=== PATIENT | female | born 1930 | race Caucasian/White ===

== ENCOUNTER → 2016-10-02 | Outpatient (CLI) | payer OTHER, BC ==
[~2016-10-02] MED LIST: ACET-1256 PO; ALBU18002 INH; ASPEC325 PO; ASPI-232 PO; ATOR-24 PO; ATV5 PO; CHLL MT; CITA10TA8 PO; CITA20TA9 PO; CLBCRM30 EXT; CLOP1TAB15 PO; DOCU-94 PO; FLNIN NAE; FLUT0.15 NAE; GLC/500 PO; LISI5TAB3 PO; LOSA100T65 PO; LOSA1TAB38 PO; LVQ750 PO; MAGN400C2 PO; METO50TA7 PO; MONT1TAB3 PO; NTRAR SL; OMEG10007 PO; PANT40TA PO; PLV75 PO; [UNRECOGNIZED DRUG - CODE] MT
[2016-10-02 08:57] LABS: BLOOD UREA NITROGEN 29 mg/dl (7-18); BUN/CREATININE RATIO 32.8 (10-20); CALCIUM 9.3 mg/dl (8.5-10.1); CARBON DIOXIDE 29 mmol/L (21-32); CHLORIDE 103 mmol/L (98-107); CREATININE 0.89 mg/dl (0.60-1.20); GLUCOSE 99 mg/dl (70-99); POTASSIUM 4.7 mmol/L (3.5-5.1); SODIUM 140 mmol/L (136-145)
[2016-10-02 09:53] LABS: ESTIMATED AVERAGE GLUCOSE 128 mg/dl; HA1C FLAG Normal (Normal)
== END | disposition home or self-care (01) ==
LOC: C.LABFOXMH 08:28
PROVIDERS: ATTEND Internal Medicine
DX: E11.9 Type 2 diabetes mellitus without complications (principal)

== ENCOUNTER → 2016-11-19 | Outpatient (CLI) | payer OTHER, BC | END | disposition home or self-care (01) | LOC: C.LABFOXMH 16:52 | PROVIDERS: ATTEND Internal Medicine | DX: R19.7 Diarrhea, unspecified (principal) ==

== ENCOUNTER → 2017-01-20 | Outpatient (CLI) | payer OTHER, BC ==
[2017-01-20 10:31] LABS: ALT/SGPT 64 U/L (12-78); AST/SGOT 39 U/L (15-37); BLOOD UREA NITROGEN 26 mg/dl (7-18); BUN/CREATININE RATIO 26.4 (10-20); CALCIUM 9.5 mg/dl (8.5-10.1); CARBON DIOXIDE 27 mmol/L (21-32); CHLORIDE 101 mmol/L (98-107); CREATININE 0.98 mg/dl (0.60-1.20); GLUCOSE 104 mg/dl (70-99); POTASSIUM 4.4 mmol/L (3.5-5.1); SODIUM 137 mmol/L (136-145)
[2017-01-20 10:35] LABS: ALB/GLOB RATIO 1.1 (0.9-2); ALKALINE PHOSPHATASE 107 U/L (45-117); CHOLESTEROL 98 mg/dl (0-200); CHOLESTEROL/HDL RATIO 2.4; HDL CHOLESTEROL 41 mg/dl; LDL CHOLESTEROL CALCULATED 31 mg/dl; TRIGLYCERIDES 132 mg/dl (0-150); VERY LOW DENSITY LIPOPROT CALC 26 mg/dl
[2017-01-20 10:41] LABS: ESTIMATED AVERAGE GLUCOSE 140 mg/dl; HA1C FLAG Normal (Normal)
== END | disposition home or self-care (01) ==
LOC: C.LABFOXMH 09:37
PROVIDERS: ATTEND Internal Medicine
DX: E11.9 Type 2 diabetes mellitus without complications (principal); E78.00 Pure hypercholesterolemia, unspecified

== ENCOUNTER 2017-02-14 08:49 | Inpatient (IN) | payer OTHER, BC ==
[~2017-02-14] VITALS: Ht 152.4 cm; Wt 68.6 kg
[~2017-02-14 08:49] MED LIST changes: -ACET-1256 PO; -ALBU18002 INH; -ASPI-232 PO; -ATV5 PO; -CHLL MT; -CITA20TA9 PO; -CLBCRM30 EXT; -DOCU-94 PO; -FLUT0.15 NAE; -GLC/500 PO; -LOSA1TAB38 PO; -LVQ750 PO; -MAGN400C2 PO; -MONT1TAB3 PO; -OMEG10007 PO; -PLV75 PO; -[UNRECOGNIZED DRUG - CODE] MT
--- NOTE | 2017-02-14 09:50 | EMERGENCY ROOM VISIT NOTE ---
History Report prepared by Cecilio: Art Xavier Under the Supervision of: Dr. Luca Olsen M.D. First contact with patient: 09:35 Chief Complaint: RESPIRATORY PROBLEMS Stated Complaint: RESPIRATORY PROBLEMS-LUNGS FILLING-SENT BY [facility] Nursing Triage Summary: pt reports from [facility] lasts night aspirated medication ,today difficulty breathing , cough "feels full" fever started last night Took Tylenol, 500mg, today at 0600, and fever is down from 102.1 F oral at 0500. Possible aspiration occurred 1800 last night, started coughing, dyspnea, sounded hoarse. Coughed up a piece of red pill. Had another episode a month ago where a nurse had to do abdominal thrusts. Currently mild dyspnea and sore throat. History of Present Illness The patient is a 87 year old female who presents to the Emergency Room with complaints of a sore throat that began last night. She rates her current pain a 10/10 in severity. At this time, she tried to take her evening medications. She then began choking on her pills and began to cough. This has happened to her before, but this time is not as bad. She then coughed up her pills. After this, she began to experience a sore throat, which then progressed into a fever with nausea, shortness of breath and a headache. She denies any abdominal pain, abnormal urinary symptoms, vomiting, or diarrhea. Her sore throat worsens with swallowing. She is currently taking Plavix and Singulair. She has a history of cardiac stents and heart disease. She denies any history of strokes. Source of History: patient, family Onset: last night Position: throat Symptom Intensity: 10/10 Quality: ache Timing: constant Modifying Factors (Worsening): other (Swallowing) Associated Symptoms: + SOB, + cough, + fevers, + headache, + nausea, No abdominal pain, No diarrhea, No urinary symptoms, No vomiting Review of Systems See HPI for pertinent positives & negatives. A total of 10 systems reviewed and were otherwise negative. Past Medical & Surgical Medical Problems: (1) Heart disease Surgical Problems: (1) Hx of heart artery stent Old medical records were reviewed. Nurse's notes were reviewed and I agree with. Family History FHx: cancer Social History Smoking Status: Never Smoker Smokeless Tobacco Use: No Alcohol Use: none Drug Use: none Marital Status: Occupation Status: retired Current/Historical Medications Scheduled Albuterol Sulfate (Proair Respiclick), 2 PUFFS INH QID Aspirin (Aspir-81), 1 TAB PO DAILY Atorvastatin (Lipitor), 40 MG PO DAILY Citalopram Hydrobromide (Celexa), 20 MG PO DAILY Clobetasol Propionate (Clobetasol Propionate Cream 0.05%), 1 APPLN EXT DAILY Docusate Sodium (Colace), 1 CAP PO BID Fish Oil ([place]-3), 1 CAP PO DAILY Fluticasone Propionate (Nasal) (Flonase Allergy Relief), 1 SPRAY BUBBA BID Losartan Potassium (Cozaar), 100 MG PO DAILY Magnesium Oxide (Magnesium Oxide), 1 CAP PO DAILY Metformin Hcl (Glucophage), 500 MG PO BID Metoprolol Succ (Toprol Xl) (Toprol-Xl), 50 MG PO BID Montelukast Sodium (Singulair), 10 MG PO DAILY Scheduled PRN Acetaminophen (Tylenol), 500 MG PO UD PRN for Pain or Fever Allergies Coded Allergies: Propoxyphene (Verified Allergy, Unknown, 06/28/13) Physical Exam Vital Signs Date Time Temp Pulse Resp B/P Pulse Ox O2 Delivery O2 Flow Rate FiO2 02/14/17 11:19 97 19 02/14/17 11:01 104/65 02/14/17 10:49 91 26 96 02/14/17 10:32 118/62 02/14/17 10:19 88 21 96 02/14/17 10:01 129/100 02/14/17 09:55 86 Room Air 02/14/17 09:55 93 Nasal Cannula 3.0 02/14/17 09:31 126/69 02/14/17 09:07 91 Room Air 02/14/17 08:56 37.6 94 20 124/69 91 Room Air Physical Exam General: Well developed older female well nourished, in no acute distress, coughing intermittently but appears to be in no respiratory distress on room air. Normal speech HEENT: Normal cephalic atraumatic. Pupils are equal round and reactive to light. Sclera anicteric. extraocular ocular movements are intact. Oropharynx is pink with moist mucous membranes. No swelling of the mouth lips or tongue. No Darius's angina. Neck: Supple with a midline trachea. No meningeal signs or stiffness, no JVD or bruits. No Stridor. Chest: Rhonchorus breath sounds bilaterally. Heart: regular rate and rhythm. Abdomen: Soft nontender, nondistended without rebound guarding or rigidity. Extremities: No cyanosis clubbing or edema. No calf tenderness or assymetry Spine/Back. Non tender to palpation. No CVA tenderness Skin: Good turgor without rashes. Neurologic exam: Cranial nerves two through 12 are intact. Motor and sensation are intact and symmetrical throughout. Medical Decision & Procedures ER Provider Diagnostic Interpretation: X-ray results as stated below per interpretation by me and the radiologist: CHEST ONE VIEW PORTABLE CLINICAL HISTORY: Shortness of breath. COMPARISON STUDY: Chest radiograph April 13, 2016. FINDINGS: No pneumothorax or pleural effusion is present. There is no consolidation to suggest pneumonia. Cardiomediastinal silhouette is normal. There is no evidence of pulmonary edema. There may be calcific tendinitis of the left rotator cuff. Minimal left basilar opacity suggests atelectasis. IMPRESSION: No acute cardiopulmonary findings. Electronically signed by: Twin Carlton M.D. 02/14/2017 10:01 AM Dictated Date/Time: 02/14/2017 10:00 AM Laboratory Results 02/14/17 09:50 Red Blood Count 4.00, Mean Corpuscular Volume 88.0, Mean Corpuscular Hemoglobin 30.0, Mean Corpuscular Hemoglobin Concent 34.1, Mean Platelet Volume 10.2, Neutrophils (%) (Auto) 83.7, Lymphocytes (%) (Auto) 9.8, Monocytes (%) (Auto) 5.6, Eosinophils (%) (Auto) 0.4, Basophils (%) (Auto) 0.2, Neutrophils # (Auto) 11.33, Lymphocytes # (Auto) 1.32, Monocytes # (Auto) 0.76, Eosinophils # (Auto) 0.05, Basophils # (Auto) 0.03 02/14/17 09:50 Test 02/14/17 09:50 02/14/17 10:26 White Blood Count 13.53 K/uL (4.8-10.8) Red Blood Count 4.00 M/uL (4.2-5.4) Hemoglobin 12.0 g/dL (12.0-16.0) Hematocrit 35.2 % (37-47) Mean Corpuscular Volume 88.0 fL (80-100) Mean Corpuscular Hemoglobin 30.0 pg (25-34) Mean Corpuscular Hemoglobin Concent 34.1 g/dl (32-36) Platelet Count 191 K/uL (130-400) Mean Platelet Volume 10.2 fL (7.4-10.4) Neutrophils (%) (Auto) 83.7 % Lymphocytes (%) (Auto) 9.8 % Monocytes (%) (Auto) 5.6 % Eosinophils (%) (Auto) 0.4 % Basophils (%) (Auto) 0.2 % Neutrophils # (Auto) 11.33 K/uL (1.4-6.5) Lymphocytes # (Auto) 1.32 K/uL (1.2-3.4) Monocytes # (Auto) 0.76 K/uL (0.11-0.59) Eosinophils # (Auto) 0.05 K/uL (0-0.5) Basophils # (Auto) 0.03 K/uL (0-0.2) RDW Standard Deviation 41.7 fL (36.4-46.3) RDW Coefficient of Variation 12.8 % (11.5-14.5) Immature Granulocyte % (Auto) 0.3 % Immature Granulocyte # (Auto) 0.04 K/uL (0.00-0.02) Anion Gap 11.0 mmol/L (3-11) Est Creatinine Clear Calc Drug Dose 37.0 ml/min Estimated GFR () 61.7 Estimated GFR (Non- 53.3 BUN/Creatinine Ratio 18.4 (10-20) Calcium Level 8.9 mg/dl (8.5-10.1) Total Bilirubin 0.4 mg/dl (0.2-1) Direct Bilirubin 0.1 mg/dl (0-0.2) Aspartate Amino Transf (AST/SGOT) 36 U/L (15-37) Alanine Aminotransferase (ALT/SGPT) 61 U/L (12-78) Alkaline Phosphatase 92 U/L (45-117) Total Protein 7.2 gm/dl (6.4-8.2) Albumin 3.6 gm/dl (3.4-5.0) Lipase 141 U/L (73-393) Bedside Troponin I 0.000 ng/ml (0-0.045) [place]-Dra-S-Type Natriuretic Peptide 197 pg/ml (0-1800) Laboratory studies as stated above per my review. Medications Administered Medications (Trade) Dose Ordered Sig/Gildardo Route Start Time Stop Time Status Last Admin Dose Admin Albuterol/ Ipratropium (Duoneb) 3 ml NOW STAT INH 02/14/17 10:11 02/14/17 10:13 DC 02/14/17 10:45 3 ML ECG Indication: SOB/dyspnea Rate (beats per minute): 90 Rhythm: normal sinus Findings: no acute ischemic change, no ectopy Comparison ECG Date: 21 May 2009 Change: no significant change ED Course 0935: Past medical records reviewed. The patient was evaluated in room A12, and a complete history and physical examination were performed. 1011: Ordered DuoNeb 3 ml INH 1048: At this time, I checked with the patient's family. The patient is looking a little better. 1052: Upon reevaluation, the patient is resting. I discussed the results and treatment plan with the patient. She verbalized agreement of the treatment plan. The patient will be evaluated by Dr. Nesbitt [place] [facility] [place]. 1200: I reassessed the patient at this time. She is resting with Dr. Nesbitt at bedside. Medical Decision Differentials include aspiration, pneumonia, CHF, pharyngitis, and foreign body in the throat. Blood Pressure Screening: Patient was found to have normal blood pressure on screening and does not require follow-up. Medication Reconciliation: I attest that I have personally reviewed the patients current medication list. This patient comes in as described above. She was placed in room A 12. She's been coughing since last night when she had difficulty swallowing a pill and they're concerned about aspiration. Her lungs do sound rhonchorous and she is mildly hypoxemic initially at 91%, she did drop down to 86 at one point .she was given albuterol Atrovent neb that seemed to help she appears in no respiratory distress. Chest x-ray was clear. EKG does not suggest acute coronary syndrome or arrhythmia. She's had no acute electrolyte or metabolic abnormalities. She doesn't have a sore throat. She is not drooling. I do think she needs further GI evaluation and possible pulmonary evaluation for possible swallowing issues or aspiration. It may be also that she has a beginning of an infection. I did discuss case with Dr. Ruth Brumfield and she saw the patient and the ER and will admit the patient for these measures. Consults Time Called: 1048 Consulting Physician: Dr. Laz OBREGON Returned Call: [phone] They will be evaluating the patient for further management and care. Impression Primary Impression: Aspiration into airway Additional Impressions: Hypoxemia Sore throat Scribe Attestation The scribe's documentation has been prepared under my direction and personally reviewed by me in its entirety. I confirm that the note above accurately reflects all work, treatment, procedures, and medical decision making performed by me. Departure Information Dispostion Being Evaluated By Hospitalist Referrals Dee Delacruz (PCP) Patient Instructions My [facility] Problem Qualifiers
--- NOTE | 2017-02-14 10:02 | DIAGNOSTIC IMAGING REPORT ---
CHEST ONE VIEW PORTABLE CLINICAL HISTORY: Shortness of breath. COMPARISON STUDY: Chest radiograph April 13, 2016. FINDINGS: No pneumothorax or pleural effusion is present. There is no consolidation to suggest pneumonia. Cardiomediastinal silhouette is normal. There is no evidence of pulmonary edema. There may be calcific tendinitis of the left rotator cuff. Minimal left basilar opacity suggests atelectasis. IMPRESSION: No acute cardiopulmonary findings. Electronically signed by: Twin Carlton M.D. 02/14/2017 10:01 AM Dictated Date/Time: 02/14/2017 10:00 AM
[2017-02-14] MEDS ORDERED: ALBUT/IPRATROP 3MG/0.5MG NEB 3 ML VIAL INH STA (10:11)
[2017-02-14 10:30] LABS: HEMATOCRIT 35.2 % (37-47); MEAN CORPUSCULAR HGB CONC 34.1 g/dl (32-36); MEAN PLATELET VOLUME 10.2 fL (7.4-10.4); PLATELET COUNT 191 K/uL (130-400); WHITE BLOOD COUNT 13.53 K/uL (4.8-10.8)
[2017-02-14 10:36] LABS: BUN/CREATININE RATIO 18.4 (10-20); CALCIUM 8.9 mg/dl (8.5-10.1); CREATININE 0.97 mg/dl (0.60-1.20); POTASSIUM 4.4 mmol/L (3.5-5.1)
[2017-02-14 10:55] LABS: BASO % 0.2 %; BASO ABS # 0.03 K/uL (0-0.2); COMPLETE YES; EOS % 0.4 %; IG% 0.3 %; LYMPH % 9.8 %; LYMPH ABS # 1.32 K/uL (1.2-3.4); MONO % 5.6 %; NEUT % 83.7 %
--- NOTE | 2017-02-14 11:02 | History and Physical ---
History & Physical Date & Time of Service: February 14, 2017 at 10:59 Chief Complaint: Respiratory Problems-Lungs Filling-Sent By [facility] Primary Care Physician: Dee Delacruz History of Present Illness Source: patient, family 87 y/o F c/o SOB. Pt states that last evening she was taking her HS meds when she choked on one or more of her pills. She took all of her medications at one time and is not certain what medication it was, but she did not that she coughed up a broken red tab during this spell. During the course of the night, pt started to feel that her breathing was more difficult. She also noted that she had a fever. Early this AM she felt she was frankly SOB and came to the ED. She was noted to be 86% on RA at one point. Pt notes that her breathing feels more tight and it is more difficult for her to take a deep breath. No chest pain, but she does have marked throat pain. Pt denies abd pain, n/v/c/d, LE pain or swelling. She does feel a bit improved on the O2 via NC. She does not use O2 at baseline. Pt notes that this happened to her about a month ago while taking her medications and a nurse had to perform the Heimlich maneuver on her. She was not sent for further eval at that time. Pt notes that over the years she has had worsening coughing/choking with eating. It is not a regular occurrence, but does happen if she is eating and laughing or talking at times. Her family feels it is more frequent, but not daily or even weekly. Pt states when this occurs, it is usually with pills and generally does fine with other solids or liquids. Pt feels that she could swallow pills if she needs to, but feels limited due to her throat pain and would prefer minimal pills at this time. She has no prior hx of speech therapy eval. ROS as noted above, otherwise neg. Past Medical/Surgical History Medical Problems: (1) Heart disease Status: Chronic Surgical Problems: (1) Hx of heart artery stent Status: Resolved HTN Depression CAD s/p stent 2007 Asthma DM HLD Family History Family history was reviewed; no changes noted. Social History Smoking Status: Never Smoker Smokeless Tobacco Use: No Alcohol Use: none Drug Use: none Marital Status: Occupational Status: retired Immunizations History of Influenza Vaccine: N/A Influenza Vaccine Date: Jul 11, 2006 History of Tetanus Vaccine?: Yes Tetanus Immunization Date: Apr 01, 2008 History of Pneumococcal: Unknown History of Hepatitis B Vaccine: Unknown Multi-Drug Resistant Organisms History of MDRO: No Allergies Coded Allergies: Propoxyphene (Verified Allergy, Unknown, 06/28/13) Home Medications Scheduled Albuterol Sulfate (Proair Respiclick), 2 PUFFS INH QID Aspirin (Aspir-81), 1 TAB PO DAILY Atorvastatin (Lipitor), 40 MG PO DAILY Citalopram Hydrobromide (Celexa), 20 MG PO DAILY Clobetasol Propionate (Clobetasol Propionate Cream 0.05%), 1 APPLN EXT DAILY Docusate Sodium (Colace), 1 CAP PO BID Fish Oil ([place]-3), 1 CAP PO DAILY Fluticasone Propionate (Nasal) (Flonase Allergy Relief), 1 SPRAY BUBBA BID Losartan Potassium (Cozaar), 100 MG PO DAILY Magnesium Oxide (Magnesium Oxide), 1 CAP PO DAILY Metformin Hcl (Glucophage), 500 MG PO BID Metoprolol Succ (Toprol Xl) (Toprol-Xl), 50 MG PO BID Montelukast Sodium (Singulair), 10 MG PO DAILY Scheduled PRN Acetaminophen (Tylenol), 500 MG PO UD PRN for Pain or Fever Physical Exam Vital Signs Date Time Temp Pulse Resp B/P Pulse Ox O2 Delivery O2 Flow Rate FiO2 02/14/17 09:55 86 Room Air 02/14/17 09:55 93 Nasal Cannula 3.0 02/14/17 09:07 91 Room Air 02/14/17 08:56 37.6 94 20 124/69 91 Room Air General Appearance: WD/WN, no apparent distress Head: normocephalic, atraumatic Respiratory/Chest: no respiratory distress, + decreased breath sounds, + rhonchi Cardiovascular: regular rate, rhythm, no edema Abdomen/GI: non tender, soft Extremities/Musculoskelatal: no calf tenderness, no pedal edema Neurologic/Psych: alert, normal mood/affect, oriented x 3 Skin: normal color, warm/dry Diagnostics Laboratory Results Results Past 24 Hours Test 02/14/17 09:50 02/14/17 10:26 Range/Units White Blood Count 13.53 4.8-10.8 K/uL Red Blood Count 4.00 4.2-5.4 M/uL Hemoglobin 12.0 12.0-16.0 g/dL Hematocrit 35.2 37-47 % Mean Corpuscular Volume 88.0 80-100 fL Mean Corpuscular Hemoglobin 30.0 25-34 pg Mean Corpuscular Hemoglobin Concent 34.1 32-36 g/dl Platelet Count 191 130-400 K/uL Mean Platelet Volume 10.2 7.4-10.4 fL Neutrophils (%) (Auto) 83.7 % Lymphocytes (%) (Auto) 9.8 % Monocytes (%) (Auto) 5.6 % Eosinophils (%) (Auto) 0.4 % Basophils (%) (Auto) 0.2 % Neutrophils # (Auto) 11.33 1.4-6.5 K/uL Lymphocytes # (Auto) 1.32 1.2-3.4 K/uL Monocytes # (Auto) 0.76 0.11-0.59 K/uL Eosinophils # (Auto) 0.05 0-0.5 K/uL Basophils # (Auto) 0.03 0-0.2 K/uL RDW Standard Deviation 41.7 36.4-46.3 fL RDW Coefficient of Variation 12.8 11.5-14.5 % Immature Granulocyte % (Auto) 0.3 % Immature Granulocyte # (Auto) 0.04 0.00-0.02 K/uL Sodium Level 135 136-145 mmol/L Potassium Level 4.4 3.5-5.1 mmol/L Chloride Level 99 98-107 mmol/L Carbon Dioxide Level 25 21-32 mmol/L Anion Gap 11.0 3-11 mmol/L Blood Urea Nitrogen 18 7-18 mg/dl Creatinine 0.97 0.60-1.20 mg/dl Est Creatinine Clear Calc Drug Dose 37.0 ml/min Estimated GFR () 61.7 Estimated GFR (Non- 53.3 BUN/Creatinine Ratio 18.4 10-20 Random Glucose 145 70-99 mg/dl Calcium Level 8.9 8.5-10.1 mg/dl Total Bilirubin 0.4 0.2-1 mg/dl Direct Bilirubin 0.1 0-0.2 mg/dl Aspartate Amino Transf (AST/SGOT) 36 15-37 U/L Alanine Aminotransferase (ALT/SGPT) 61 12-78 U/L Alkaline Phosphatase 92 45-117 U/L Total Protein 7.2 6.4-8.2 gm/dl Albumin 3.6 3.4-5.0 gm/dl Lipase 141 73-393 U/L Bedside Troponin I 0.000 0-0.045 ng/ml PR-Ggs-C-Type Natriuretic Peptide 197 0-1800 pg/ml Diagnostic Radiology CXR neg for acute Impression Assessment and Plan 87 y/o F who was admitted on 02/14 for hypoxia Hypoxia: likely related to pill aspiration in the setting of baseline asthma Improved to 90% on 2L CXR neg for acute, which would be expected in an asp event in the first 48hrs Elevated WBC, mild fever Will start on levaquin and monitor Aspiration event: states generally with pills only, however occasions with food Most of the pills pt takes at night are tablets and discussed that this will dissolve eventually--likely the missing portion of the tablet she was able to produce with cough Advised taking pills singularly in the future Speech therapy eval pending Holding nonessential meds, IV/liquid/chewable forms as available, SSI Pt feels she can swallow several as needed, those are reported by pharmacy as small Discussed that ENT eval may be necessary in the future, but that we should start with speech therapy given no hx of prior eval. Pt and present family agree with this plan. Chloraseptic spray PRN Asthma: no edyta wheezing noted Will omar nebs to help with aeration Hold on steroids given stability Continue with singular CAD: continue aspirin/plavix given hx of stents HTN: metoprolol IV, can resume home meds when able to swallow DM: SSI PRN, can resume metformin when able to swallow Depression: continue celexa to avoid withdrawal issues Holding supplements and statin for now given swallowing issues Other: Full code, although pt does say that she does not wish for prolonged mechanical life support If pt does well with bedside swallow eval, can change to DM, AHA diet Pt on aspirin and plavix at baseline, will avoid rx DVT proph to avoid further irritation to the lining of the lungs given foreign body Plan was discussed with pt and family at length and all present parties agree with this plan Level of Care Telemetry Resuscitation Status FULL RESUSCITATION
[2017-02-14] MEDS ORDERED: OMEG10007 PO (11:07)
[2017-02-14] MEDS ORDERED: CLBCRM30 EXT (11:07)
[2017-02-14] MEDS ORDERED: FLUT0.15 NAE (11:07)
[2017-02-14] MEDS ORDERED: ALBU18002 INH (11:07)
[2017-02-14] MEDS ORDERED: DOCU-94 PO (11:07)
[2017-02-14] MEDS ORDERED: MONT1TAB3 PO (11:07)
[2017-02-14] MEDS ORDERED: METO50TA7 PO (11:07)
[2017-02-14] MEDS ORDERED: ATOR-24 PO (11:07)
[2017-02-14] MEDS ORDERED: MAGN400C2 PO (11:07)
[2017-02-14] MEDS ORDERED: LOSA1TAB38 PO (11:07)
[2017-02-14] MEDS ORDERED: GLC/500 PO (11:07)
[2017-02-14] MEDS ORDERED: ASPI-232 PO (11:07)
[2017-02-14] MEDS ORDERED: CITA20TA9 PO (11:07)
[2017-02-14] MEDS ORDERED: ACET-1256 PO (11:08)
[2017-02-14] MEDS ORDERED: CHLORASEPTIC 1.4% SOLN 180 ML BTL MT PRN (11:30)
[2017-02-14] MEDS ORDERED: ACETAMINOPHEN 325 MG TAB PO PRN ×2 (11:30→11:45)
[2017-02-14] MEDS ORDERED: *BENZOCAINE/MENTHOL 18 LOZ/1 BOX MT PRN (11:30)
[2017-02-14] MEDS ORDERED: MAGNESIUM HYDROXIDE SUSP 30 ML UDC PO PRN (11:30)
[2017-02-14] MEDS ORDERED: ONDANSETRON INJ 2 MG/ML 2 ML VIAL IV PRN (11:30)
[2017-02-14 11:52] VITALS: O2SAT 96; Ht 152.4 cm; Wt 68.6 kg
[2017-02-14] MEDS ORDERED: ACETAMINOPHEN SUSP 160 MG/5 ML UDC ONE (12:10)
[2017-02-14] MEDS ORDERED: ALBUTEROL HFA INHALER 8.5 GM INH SCH (13:00)
[2017-02-14] MEDS ORDERED: METOPROLOL TARTRATE 1 MG/ML VIAL IV STA (13:04)
[2017-02-14] MEDS ORDERED: CITALOPRAM 20 MG TAB PO ONE (14:00)
[2017-02-14] MEDS ORDERED: ASPIRIN 81 MG CHEW PO ONE (14:00)
[2017-02-14] MEDS ORDERED: MONTELUKAST SOD 10 MG TAB PO ONE (14:00)
[2017-02-14] MEDS ORDERED: CLOPIDOGREL BISULFATE 75 MG TAB PO ONE (14:00)
[2017-02-14] MEDS ORDERED: GLUCOSE 40% GEL 15 GM TUBE PO PRN (14:30)
[2017-02-14] MEDS ORDERED: DEXTROSE 50% 50 ML SYR IV PRN (14:30)
[2017-02-14] MEDS ORDERED: GLUCAGON FOR INJ 1 MG VIAL SQ PRN (14:30)
[2017-02-14] MEDS ORDERED: GLUCOSE 10 TABS/TUBE PO PRN (14:30)
[2017-02-14] MEDS: LEVOFLOXACIN / D5W 750 MG in PREMIXED IN D5W 150 ML IV SCH (15:19)
[2017-02-14 15:28] VITALS: PULSE 89; O2SAT 93
[2017-02-14] MEDS: ALBUT/IPRATROP 3MG/0.5MG NEB 3 ML VIAL INH SCH ×2 (15:28→19:44)
[2017-02-14 15:31] VITALS: BP 105/68; PULSE 77; TEMP 36.6; O2SAT 95
[2017-02-14] MEDS: INSULIN ASPART 100 UNITS/ML 3 ML PEN SC SCH ×2 (17:21→21:47)
[2017-02-14] MEDS: METOPROLOL TARTRATE 1 MG/ML VIAL IV. SCH ×2 (17:45→23:52)
[2017-02-14 19:05] VITALS: PULSE 89; O2SAT 93
[2017-02-14 19:58] VITALS: BP 106/70; PULSE 88; TEMP 37.9; O2SAT 92
[2017-02-14] MEDS ORDERED: NURSING DECISION MEDICATION ORDER SCH (21:15)
[2017-02-14] MEDS: ACETAMINOPHEN 325 MG TAB PO PRN (21:51)
[2017-02-14] MEDS: FLUTICASONE PROPIONATE NA SPR 16 GM BTL NAE SCH (21:51)
[2017-02-15] VITALS (13 sets, daily range): BP systolic 108–148; BP diastolic 64–75; PULSE 70–110; TEMP 36.7–38; O2SAT 90–97
[2017-02-15] MEDS: ALBUT/IPRATROP 3MG/0.5MG NEB 3 ML VIAL INH SCH ×5 (04:25→20:16)
[2017-02-15] MEDS: METOPROLOL TARTRATE 1 MG/ML VIAL IV. SCH ×2 (05:52→12:31)
[2017-02-15] MEDS: CLOBETASOL PROPIONATE 0.05% OINT 15 GM TUBE EXT SCH (08:09)
[2017-02-15] MEDS: CLOPIDOGREL BISULFATE 75 MG TAB PO SCH (08:10)
[2017-02-15] MEDS: FLUTICASONE PROPIONATE NA SPR 16 GM BTL NAE SCH ×2 (08:10→21:46)
[2017-02-15] MEDS: ASPIRIN 81 MG CHEW PO SCH (08:10)
[2017-02-15] MEDS: CITALOPRAM 20 MG TAB PO SCH (08:10)
[2017-02-15] MEDS: MONTELUKAST SOD 10 MG TAB PO SCH (08:11)
[2017-02-15] MEDS: INSULIN ASPART 100 UNITS/ML 3 ML PEN SC SCH ×4 (08:13→21:00)
[2017-02-15] MEDS: ACETAMINOPHEN 325 MG TAB PO PRN ×2 (08:47→21:50)
[2017-02-15] MEDS ORDERED: LIDODERM (LIDOCAINE) PATCH 5% TD ONE (11:00)
[2017-02-15] MEDS: LEVOFLOXACIN / D5W 750 MG in PREMIXED IN D5W 150 ML IV SCH (14:26)
--- NOTE | 2017-02-15 17:20 | Progress Note ---
Subjective Date of Service: February 15, 2017. Subjective Pt evaluation today including: conversation w/ patient, conversation w/ family , physical exam, chart review, lab review, review of studies, review of inpatient medication list feeling better as far as dyspnea, fever/chills/sweats (no further f/c/s, dyspnea improving) but notes coughing more and chest / ribs hurting more from coughing, also has a headache son in law present - anesthesiologist from [facility] - [phone] - pt and family would prefer i give him daily updates as well doing better overall Problem List Medical Problems: (1) Aspiration into airway Status: Acute (2) Hypoxemia Status: Acute (3) Sore throat Status: Acute Review of Systems ros otherwise negative except for as above Objective Vital Signs Date Time Temp Pulse Resp B/P Pulse Ox O2 Delivery O2 Flow Rate FiO2 02/15/17 14:49 36.7 86 18 129/75 92 Nasal Cannula 3.0 02/15/17 12:31 101 126/70 02/15/17 11:40 37.0 110 16 137/72 93 Nasal Cannula 02/15/17 11:23 86 18 95 Nasal Cannula 2.0 02/15/17 11:09 37.2 91 18 90 3.0 02/15/17 08:12 37.2 91 18 108/64 90 Nasal Cannula 2.0 02/15/17 08:00 Nasal Cannula 3.0 02/15/17 07:05 85 18 95 Nasal Cannula 3.0 02/15/17 05:52 105 126/55 02/15/17 04:25 89 20 93 Nasal Cannula 3.0 02/15/17 04:06 37.6 100 19 148/71 91 Nasal Cannula 3.0 02/15/17 04:00 Nasal Cannula 3.0 Humidified Oxygen 02/15/17 00:07 38.0 97 19 114/68 97 Nasal Cannula 3.0 02/15/17 00:00 Nasal Cannula 3.0 Humidified Oxygen 02/14/17 23:52 89 114/68 02/14/17 20:00 Nasal Cannula 3.0 02/14/17 19:58 37.9 88 20 106/70 92 Nasal Cannula 3.0 02/14/17 19:05 89 18 93 Nasal Cannula 3.0 02/14/17 17:45 92 Physical Exam General Appearance: no apparent distress (fatigued appearing) Eyes: EOMI ENT: hearing grossly normal Neck: trachea midline, + pertinent finding (L>R suboccipitals high tone/tender/ decreased ROM - inhibitory pressure - improved; pt tolerated well) Respiratory/Chest: no respiratory distress, no accessory muscle use, + rhonchi (diffuse scattered), + pertinent finding (R>L ribs/Tspine paraspinals decreased ROM mildly tender - balanced ligamentous tension - improved, pt tolerated well) Extremities: normal range of motion 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, alert, normal mood/affect Skin: normal color, warm/dry Laboratory Results Last 24 Hours Test 02/14/17 20:38 02/15/17 06:42 02/15/17 11:17 02/15/17 16:34 Bedside Glucose 120 mg/dl 137 mg/dl 117 mg/dl 146 mg/dl Assessment and Plan Hypoxia: likely related to pill aspiration in the setting of baseline asthma hypoxia correctable on O2 speech eval noted - low risk for recurrent events family notes she almost literally inhales pills, she notes she's quite social and talks/eats at the same time a lot discussed how this puts her at risk for aspiration even without swallowing difficulty/dysfunction - she expressed understanding, as did family azucena, supportive care improving repeat CBC in AM Asthma: no edyta wheezing noted continue nebs, still hold off on steroids headache - appearing tension headache, OMT and ice pack cervical somatic dysfunction - OMT as above rib somatic dysfunction - OMT as above both to help w rib pain and increase volume for breathing/improve situation with pneumonia CAD: continue aspirin/plavix given hx of stents HTN: resume home meds DM: SSI PRN, can resume metformin Depression: continue celexa dispo - transfer to med/surg; PT/OT - [facility]48[facility] DVT proph - lovenox Plan was discussed with pt and family at length and all present parties agree with this plan
[2017-02-15 18:09] LABS: INR 1.1 (0.9-1.1); PARTIAL THROMBOPLASTIN RATIO 1.2; PROTHROMBIN TIME (PATIENT) 12.2 SECONDS (9.0-12.0)
[2017-02-15] MEDS: METFORMIN HCL 500 MG TAB PO SCH (21:42)
[2017-02-15] MEDS: DOCUSATE SODIUM 100 MG CAP PO SCH (21:42)
[2017-02-15] MEDS: METOPROLOL SUCC 50MG EXT REL TAB PO SCH (21:43)
[2017-02-16] VITALS (10 sets, daily range): BP systolic 111–137; BP diastolic 69–77; PULSE 59–105; TEMP 36.6–37.1; O2SAT 91–100
[2017-02-16 06:22] LABS: BASO % 0.2 %; BASO ABS # 0.02 K/uL (0-0.2); COMPLETE YES; EOS % 1.6 %; HEMATOCRIT 34.1 % (37-47); IG% 0.4 %; LYMPH ABS # 1.26 K/uL (1.2-3.4); MEAN CELL VOLUME 90.5 fL (80-100); MEAN CORPUSCULAR HEMOGLOBIN 30.2 pg (25-34); MEAN CORPUSCULAR HGB CONC 33.4 g/dl (32-36); MONO % 10.4 %; NEUT % 73.4 %; PLATELET COUNT 164 K/uL (130-400); RED BLOOD COUNT 3.77 M/uL (4.2-5.4); WHITE BLOOD COUNT 9.03 K/uL (4.8-10.8)
[2017-02-16] MEDS: ALBUT/IPRATROP 3MG/0.5MG NEB 3 ML VIAL INH SCH ×4 (06:25→19:08)
[2017-02-16 06:57] LABS: BUN/CREATININE RATIO 19.6 (10-20); CALCIUM 8.7 mg/dl (8.5-10.1); CREATININE 0.8 mg/dl (0.60-1.20); POTASSIUM 4.3 mmol/L (3.5-5.1)
[2017-02-16] MEDS: INSULIN ASPART 100 UNITS/ML 3 ML PEN SC SCH ×4 (08:03→21:00)
[2017-02-16] MEDS: LIDODERM (LIDOCAINE) PATCH 5% TD SCH (08:03)
[2017-02-16] MEDS: ENOXAPARIN 40 MG/0.4 ML SYR SQ SCH ×2 (08:05→08:51)
[2017-02-16] MEDS: CLOPIDOGREL BISULFATE 75 MG TAB PO SCH (08:06)
[2017-02-16] MEDS: DOCUSATE SODIUM 100 MG CAP PO SCH ×2 (08:06→21:28)
[2017-02-16] MEDS: METOPROLOL SUCC 50MG EXT REL TAB PO SCH ×2 (08:06→21:28)
[2017-02-16] MEDS: MONTELUKAST SOD 10 MG TAB PO SCH (08:06)
[2017-02-16] MEDS: LOSARTAN POTASSIUM 50 MG TAB PO SCH (08:06)
[2017-02-16] MEDS: CITALOPRAM 20 MG TAB PO SCH (08:06)
[2017-02-16] MEDS: CLOBETASOL PROPIONATE 0.05% OINT 15 GM TUBE EXT SCH (08:07)
[2017-02-16] MEDS: METFORMIN HCL 500 MG TAB PO SCH ×2 (08:07→16:17)
[2017-02-16] MEDS: ASPIRIN 81 MG CHEW PO SCH (08:07)
[2017-02-16] MEDS: ATORVASTATIN 40 MG TAB PO SCH (08:07)
[2017-02-16] MEDS: OMEGA-3 (PURIFIED FISH OIL) 1 GM CAP PO SCH (08:07)
[2017-02-16] MEDS: FLUTICASONE PROPIONATE NA SPR 16 GM BTL NAE SCH ×2 (08:08→21:28)
[2017-02-16] MEDS ORDERED: ASPIRIN 81 MG ECTAB PO SCH (09:00)
--- NOTE | 2017-02-16 10:46 | Hospitalist Progress Note ---
Hospitalist Progress Note Date of Service February 16, 2017. (Zo Naranjo ., PA-C) Subjective Pt evaluation today including: conversation w/ patient, physical exam, chart review, lab review, review of studies, review of inpatient medication list Voiding: no voiding problems, no incontinence Patient states she is feeling well. Eating and drinking OK. Admits to "tympanic sound" when taking a deep breath, worse throughout the night; lung clear during assessment- patient states it improved after DuoNeb treatment this AM. +SOB but improving since admission- still requiring O2 supplementation. +cough. +sore throat. Patient denies any fever, chills, sweats, lightheadedness, dizziness, vision changes, CP, palpitations, edema, wheezing, abdominal pain, nausea, vomiting, diarrhea, urinary symptoms, melena, numbness/tingling, weakness, muscle/joint pain, anxiety/depression, active bleeding, or new skin discoloration/changes. (Zo Naranjo ., PA-C) Medications Current Inpatient Medications Medications (Trade) Dose Ordered Sig/Gildardo Route Start Time Stop Time Status Last Admin Dose Admin Magnesium Hydroxide (Milk Of Magnesia Susp) 30 ml Q12H PRN PO 02/14/17 11:30 03/16/17 11:29 Ondansetron HCl (Zofran Inj) 4 mg Q6H PRN IV 02/14/17 11:30 03/16/17 11:29 Phenol (Chloraseptic 1.4% [place]) 2 sprays Q4H PRN MT 02/14/17 11:30 03/16/17 11:29 02/14/17 11:41 2 SPRAYS Benzocaine/ Menthol 1 gloria 1 gloria Q4H PRN MT 02/14/17 11:30 03/16/17 11:29 02/14/17 11:43 1 GLORIA Levofloxacin/Prmx (Levaquin / D5W/ Premixed D5W) 150 ml @ 100 mls/hr Q24H IV 02/14/17 15:00 02/21/17 14:59 02/15/17 14:26 100 MLS/HR Citalopram Hydrobromide (celeXA TAB) 20 mg DAILY PO 02/15/17 09:00 03/17/17 08:59 02/16/17 08:06 20 MG Fluticasone Propionate (Flonase Nasal [place]) 1 sprays BID BUBBA 02/14/17 21:00 03/16/17 20:59 02/16/17 08:08 1 SPRAYS Montelukast Sodium (Singulair Tab) 10 mg DAILY PO 02/15/17 09:00 03/17/17 08:59 02/16/17 08:06 10 MG Albuterol (Proair Hfa) 2 puffs QID INH 02/14/17 13:00 03/16/17 12:59 Future Hold Clobetasol Propionate (Clobetasol Propionate Oint) 1 appln DAILY EXT 02/15/17 09:00 03/17/17 08:59 02/16/17 08:07 1 APPLN Aspirin (Aspirin Chew) 81 mg DAILY PO 02/15/17 09:00 03/17/17 08:59 02/16/17 08:07 81 MG Clopidogrel Bisulfate (plAVix TAB) 75 mg QAM PO 02/15/17 09:00 03/17/17 08:59 02/16/17 08:06 75 MG Insulin Aspart (novoLOG ASPART) SLIDING SCALE G... ACHS SC 02/14/17 16:15 03/16/17 16:14 02/16/17 08:03 2 UNITS Albuterol/ Ipratropium (Duoneb) 3 ml QIDR INH 02/14/17 16:00 03/16/17 15:59 02/16/17 06:25 3 ML Glucose (Glucose 40% Gel) 15-30 GRAMS 15 GRAMS... UD PRN PO 02/14/17 14:30 03/16/17 14:29 Glucose (Glucose Chew Tab) 4-8 Tablets 4 Tabl... UD PRN PO 02/14/17 14:30 03/16/17 14:29 Dextrose (Dextrose 50% 50ML Syringe) 25-50ML OF 50% DW IV FOR... UD PRN IV 02/14/17 14:30 03/16/17 14:29 Glucagon (Glucagon Inj) 1 mg UD PRN SQ 02/14/17 14:30 03/16/17 14:29 Acetaminophen (Tylenol Tab) 650 mg Q4H PRN PO 02/14/17 21:45 03/16/17 21:44 02/15/17 21:50 650 MG Lidocaine (Lidoderm Patch 5%) 1 patch QAM TD 02/16/17 09:00 03/18/17 08:59 02/16/17 08:03 1 PATCH Miscellaneous (Remove Lidoderm Patch) 1 ea DAILY@21 N/A 02/15/17 21:00 03/17/17 20:59 02/15/17 21:46 1 EA Enoxaparin Sodium (Lovenox Inj) 40 mg QAM SQ 02/16/17 09:00 03/18/17 08:59 02/16/17 08:51 40 MG Atorvastatin Calcium (Lipitor Tab) 40 mg DAILY PO 02/16/17 09:00 03/18/17 08:59 02/16/17 08:07 40 MG Docusate Sodium (coLACE CAP) 100 mg BID PO 02/15/17 21:00 03/17/17 20:59 02/16/17 08:06 100 MG Fish Oil ([place]-3 (Purified Fish Oil) Cap) 1 gm DAILY PO 02/16/17 09:00 03/18/17 08:59 02/16/17 08:07 1 GM Losartan Potassium (coZAAR TAB) 100 mg DAILY PO 02/16/17 09:00 03/18/17 08:59 02/16/17 08:06 100 MG Metformin HCl (Glucophage Tab) 500 mg BIDM PO 02/15/17 17:00 03/17/17 16:59 02/16/17 08:07 500 MG Metoprolol Succinate (Toprol Xl Tab) 50 mg BID PO 02/15/17 21:00 03/17/17 20:59 02/16/17 08:06 50 MG (Zo Naranjo, LAW) Objective Vital Signs Date Time Temp Pulse Resp B/P Pulse Ox O2 Delivery O2 Flow Rate FiO2 02/16/17 09:16 96 02/16/17 08:00 Nasal Cannula 3.0 02/16/17 07:52 36.7 84 18 122/76 96 2.0 02/16/17 06:26 77 20 97 Nasal Cannula 2.0 02/16/17 00:00 36.6 85 18 127/69 95 Nasal Cannula 3.0 02/16/17 00:00 Nasal Cannula 3.0 02/15/17 19:15 88 22 95 Nasal Cannula 2.0 02/15/17 17:50 93 Nasal Cannula 3.0 02/15/17 16:00 92 Nasal Cannula 3.0 02/15/17 15:16 70 18 94 Nasal Cannula 2.0 02/15/17 14:49 36.7 86 18 129/75 92 Nasal Cannula 3.0 02/15/17 12:31 101 126/70 02/15/17 11:40 37.0 110 16 137/72 93 Nasal Cannula 02/15/17 11:23 86 18 95 Nasal Cannula 2.0 02/15/17 11:09 37.2 91 18 90 3.0 (Zo Naranjo ., PA-C) Physical Exam General Appearance: no apparent distress Eyes: normal inspection, PERRL ENT: hearing grossly normal Neck: supple Respiratory/Chest: lungs clear, no respiratory distress, no accessory muscle use, + decreased breath sounds (bilateral lung bases ) Cardiovascular: regular rate, rhythm Abdomen: normal bowel sounds, non tender, soft Extremities: no pedal edema, no calf tenderness Neurologic/Psychiatric: alert, normal mood/affect, oriented x 3 Skin: normal color, warm/dry, no rash (Zo Naranjo ., PA-C) Laboratory Results Last 24 Hours Test 02/15/17 11:17 02/15/17 16:34 02/15/17 17:49 02/15/17 20:42 Bedside Glucose 117 mg/dl 146 mg/dl 105 mg/dl Prothrombin Time 12.2 SECONDS Prothromb Time International Ratio 1.1 Activated Partial Thromboplast Time 31.3 SECONDS Partial Thromboplastin Ratio 1.2 Test 02/16/17 06:00 02/16/17 07:37 White Blood Count 9.03 K/uL Red Blood Count 3.77 M/uL Hemoglobin 11.4 g/dL Hematocrit 34.1 % Mean Corpuscular Volume 90.5 fL Mean Corpuscular Hemoglobin 30.2 pg Mean Corpuscular Hemoglobin Concent 33.4 g/dl Platelet Count 164 K/uL Mean Platelet Volume 10.0 fL Neutrophils (%) (Auto) 73.4 % Lymphocytes (%) (Auto) 14.0 % Monocytes (%) (Auto) 10.4 % Eosinophils (%) (Auto) 1.6 % Basophils (%) (Auto) 0.2 % Neutrophils # (Auto) 6.63 K/uL Lymphocytes # (Auto) 1.26 K/uL Monocytes # (Auto) 0.94 K/uL Eosinophils # (Auto) 0.14 K/uL Basophils # (Auto) 0.02 K/uL RDW Standard Deviation 43.7 fL RDW Coefficient of Variation 13.2 % Immature Granulocyte % (Auto) 0.4 % Immature Granulocyte # (Auto) 0.04 K/uL Sodium Level 134 mmol/L Potassium Level 4.3 mmol/L Chloride Level 98 mmol/L Carbon Dioxide Level 28 mmol/L Anion Gap 8.0 mmol/L Blood Urea Nitrogen 16 mg/dl Creatinine 0.80 mg/dl Est Creatinine Clear Calc Drug Dose 44.4 ml/min Estimated GFR () 77.9 Estimated GFR (Non- 67.2 BUN/Creatinine Ratio 19.6 Random Glucose 126 mg/dl Calcium Level 8.7 mg/dl Bedside Glucose 134 mg/dl (Zo Naranjo ., PA-C) Assessment and Plan 87 y/o female who was admitted on 02/14 for hypoxia Hypoxia, likely aspiration PNA related to pill aspiration in the setting of baseline asthma: - Admit to tele -- Transferred to med/surg on 02/15 - O2 protocol, wean as tolerated- does NOT wear O2 supplement at home - CXR neg for acute process - IV Levaquin - Speech therapy consulted, appreciate recommendations Sore throat: Chloraseptic spray and Lozenges PRN Asthma: - Continue home inhalers - DuoNebs QID CAD: Continue Aspirin/Plavix given hx of stents HTN: Metoprolol 50 mg BID, Losartan 100 mg daily Dyslipidemia: Lipitor 40 mg daily T2DM: - Metformin 500 mg BID - BSG ACHS w/ sliding insulin scale Depression: Continue Celexa 20 mg daily GI Prophylaxis: IV Zofran PRN, Milk of Mag PRN DVT prophylaxis: Lovenox Code Status: LEVEL I, FULL Dispo: Return to ?[facility] when medically stable- hopefully tomorrow - PT recommendations- continued P.T. & 2 step test c respiratory therapy & acute inpatient rehab at [facility] (Zo Narnajo ., PA-C) i personally examined pt and verified all sanchez points w T [place] PAC feeling better, still feels a rattle from time to time but incentive spirometer helps. breathing easier, getting to and from bathroom wtihout a lot of dyspnea ros otherwise negative except for as above. vitals noted nad breathing unlabored no pallor or icterus aspiration pneumonia w acute hypoxic respiratory failure on admission, SIRS on admission - -improving -O2, nebs, levaquin, supportive care hopefully [facility] tomorrow, improving (Forest Sibley D.O.)
[2017-02-16] MEDS: LEVOFLOXACIN / D5W 750 MG in PREMIXED IN D5W 150 ML IV SCH (15:45)
[2017-02-16] MEDS: ACETAMINOPHEN 325 MG TAB PO PRN (21:29)
[2017-02-16] MEDS: BENZONATATE 100MG CAP PO SCH (23:42)
[2017-02-17] VITALS (8 sets, daily range): BP systolic 133; BP diastolic 89; PULSE 76–88; TEMP 36.8–36.9; O2SAT 85–96
[2017-02-17] MEDS: ALBUT/IPRATROP 3MG/0.5MG NEB 3 ML VIAL INH SCH ×3 (00:38→11:12)
[2017-02-17] MEDS ORDERED: LORAZEPAM 0.5 MG TAB PO PRN (04:00)
[2017-02-17] MEDS: BENZONATATE 100MG CAP PO SCH ×2 (08:07→14:00)
[2017-02-17] MEDS: METFORMIN HCL 500 MG TAB PO SCH (08:08)
[2017-02-17] MEDS: CITALOPRAM 20 MG TAB PO SCH (08:08)
[2017-02-17] MEDS: DOCUSATE SODIUM 100 MG CAP PO SCH (08:08)
[2017-02-17] MEDS: MONTELUKAST SOD 10 MG TAB PO SCH (08:08)
[2017-02-17] MEDS: ATORVASTATIN 40 MG TAB PO SCH (08:08)
[2017-02-17] MEDS: METOPROLOL SUCC 50MG EXT REL TAB PO SCH (08:08)
[2017-02-17] MEDS: CLOPIDOGREL BISULFATE 75 MG TAB PO SCH (08:08)
[2017-02-17] MEDS: OMEGA-3 (PURIFIED FISH OIL) 1 GM CAP PO SCH (08:09)
[2017-02-17] MEDS: CLOBETASOL PROPIONATE 0.05% OINT 15 GM TUBE EXT SCH (08:09)
[2017-02-17] MEDS: LOSARTAN POTASSIUM 50 MG TAB PO SCH (08:09)
[2017-02-17] MEDS: LIDODERM (LIDOCAINE) PATCH 5% TD SCH (08:10)
[2017-02-17] MEDS: ENOXAPARIN 40 MG/0.4 ML SYR SQ SCH (08:10)
[2017-02-17] MEDS: FLUTICASONE PROPIONATE NA SPR 16 GM BTL NAE SCH (08:15)
[2017-02-17] MEDS: ASPIRIN 81 MG CHEW PO SCH (08:59)
[2017-02-17] MEDS: INSULIN ASPART 100 UNITS/ML 3 ML PEN SC SCH ×2 (09:05→11:00)
[2017-02-17] MEDS ORDERED: PLV75 PO (10:32)
[2017-02-17] MEDS ORDERED: CHLL MT (10:32)
[2017-02-17] MEDS ORDERED: LVQ750 PO (10:32)
[2017-02-17] MEDS ORDERED: [UNRECOGNIZED DRUG - CODE] MT (10:32)
[2017-02-17] MEDS ORDERED: ATV5 PO (10:32)
--- NOTE | 2017-02-17 10:39 | Discharge Instructions ---
Discharge Instructions Date of Service February 17, 2017. Admission Reason for Admission: Respiratory Problems-Lungs Filling-Sent By [facility] Discharge Discharge Diagnosis / Problem: Aspiration PNA Discharge Goals Goal(s): Decrease discomfort, Improve function, Improve disease control, Learn about illness, Diagnostic testing, Therapeutic intervention, Prevent Disease Progression Activity Recommendations Activity Level: Assistance Required Therapies: Physical Therapy, Occupational Therapy, Speech Therapy . Additional Information Patient informed of condition: Yes Advance Directives: Yes DNR: No Level of Care: Skilled Communicable Disease: Yes Prognosis: Improving Oxygen at (LPM): 2-3L [place] Catheter: No Instructions / Follow-Up Instructions / Follow-Up It is important to continue to follow speech therapies recommendations to avoid further aspiration Please follow-up with [facility] provider within 24-48 hrs Please follow-up/keep all of your subspecialty appointments Current Hospital Diet Patient's current hospital diet: AHA Diet (Heart Healthy), Diabetes Type 2 Diet Discharge Diet Recommended Diet: AHA Diet (Heart Healthy), Diabetes Type 2 Diet Pending Studies Studies pending at discharge: no Physician Orders On Transfer Special Precautions: Aspiration precautions: Speech Therapy Discharge Instructions * Pt can continue regular diet. Pt should follow aspiration precautions for safe swallowing which include taking medications ONE AT A TIME with water to avoid possible choking, take small bites and sips while eating, swallow food completely before taking another bite, and swallow bite before talking or laughing if possible. Dressing Changes: None IV Therapy: None Vital Signs: Routine Additional Orders: Last day of Levaquin 750 mg daily treatment for aspiration PNA will be on 02/20 Patient request Ativan 0.5 mg PO HS to help with sleep due to coughing fits leading to anxiety Patient is currently requiring 2-3L, continue to wean as tolerated Recommend continue incentive spirometer usage POLST Discussion: Not Applicable Laboratory Results Hemoglobin A1c Test 01/20/17 07:11 Range/Units Estimated Average Glucose 140 mg/dl Hemoglobin A1c 6.5 H 4.5-5.6 % Lipid Panel Test 01/20/17 07:11 Range/Units Triglycerides Level 132 0-150 mg/dl Cholesterol Level 98 0-200 mg/dl HDL Cholesterol 41 mg/dl Cholesterol/HDL Ratio 2.4 LDL Cholesterol, Calculated 31 mg/dl Medical Emergencies . Who to Call and When: Medical Emergencies: If at any time you feel your situation is an emergency, please call 911 immediately. . Non-Emergent Contact Non-Emergency issues call your: Primary Care Provider . . "Provider Documentation" section prepared by Zo Narajno. . Core Measure Problem Core Measures: None
--- NOTE | 2017-02-17 10:51 | Discharge Summary ---
Discharge Summary Date of Service February 17, 2017. (Zo Naranjo PA-C) Discharge Summary Admission Date: February 14, 2017 at 11:26 Discharge Date: February 17, 2017 Discharge Disposition: [facility] facility Principal Diagnosis: Aspiration PNA Problems/Secondary Diagnoses: Hypoxia, likely aspiration PNA related to pill aspiration in the setting of baseline asthma Asthma CAD HTN Dyslipidemia T2DMle Depression/anxiety Immunizations: Have You Had Influenza Vaccine: N/A Influenza Vaccine Date: Jul 11, 2006 History of Tetanus Vaccine?: Yes Tetanus Immunization Date: Apr 01, 2008 History of Pneumococcal: Unknown History of Hepatitis B Vaccine: Unknown Procedures: CHEST ONE VIEW PORTABLE CLINICAL HISTORY: Shortness of breath. COMPARISON STUDY: Chest radiograph April 13, 2016. FINDINGS: No pneumothorax or pleural effusion is present. There is no consolidation to suggest pneumonia. Cardiomediastinal silhouette is normal. There is no evidence of pulmonary edema. There may be calcific tendinitis of the left rotator cuff. Minimal left basilar opacity suggests atelectasis. IMPRESSION: No acute cardiopulmonary findings. Electronically signed by: Twin Carlton M.D. 02/14/2017 10:01 AM Dictated Date/Time: 02/14/2017 10:00 AM The status of this report is Signed. Draft = Not yet reviewed or approved by Radiologist. Signed = Reviewed and approved by Radiologist (Zo Naranjo PA-C) Medication Reconciliation New Medications: Levofloxacin (Levofloxacin) 750 Mg Tab 750 MG PO DAILY for 4 Days, #4 TABS Benzocaine-Menthol (Mouth-Thro (Chloraseptic Sore Throat/) 1 Liz Liz 1 LIZ MT Q4H PRN for sore throat for 10 Days, LIZ Clopidogrel Bisulfate (Clopidogrel) 75 Mg Tab 75 MG PO QAM for 30 Days, #30 TAB Lorazepam (Lorazepam) 0.5 Mg Tab 0.5 MG PO HSZ PRN for Anxiety for 3 Days, #3 TAB Phenol (Chloraseptic) 360 Sprays/180 Ml Liqd 2 SPRAYS MT Q4H PRN for sore throat for 10 Days Continued Medications: Acetaminophen (Tylenol) 500 Mg Tab 500 MG PO UD PRN for Pain or Fever, TAB Albuterol Sulfate (Proair Respiclick) 108 Mcg/Act Aer 2 PUFFS INH QID Aspirin (Aspir-81) 81 Mg Tab 1 TAB PO DAILY for 90 Days, #90 TAB 3 Refills Atorvastatin (Lipitor) 40 Mg Tab 40 MG PO DAILY, TAB Citalopram Hydrobromide (Celexa) 20 Mg Tab 20 MG PO DAILY, TAB Clobetasol Propionate (Clobetasol Propionate Cream 0.05%) 90 Appln/30 Gm Cr 1 APPLN EXT DAILY, TUBE Docusate Sodium (Colace) 100 Mg Cap 1 CAP PO BID for 30 Days, #60 CAP Fish Oil ([place]-3) 1 Ea Cap 1 CAP PO DAILY, CAP Fluticasone Propionate (Nasal) (Flonase Allergy Relief) 50 Mcg/Act Spr 1 SPRAY BUBBA BID Losartan Potassium (Cozaar) 100 Mg Tab 100 MG PO DAILY, TAB Magnesium Oxide (Magnesium Oxide) 400 Mg Cap 1 CAP PO DAILY for 90 Days, #90 CAP 3 Refills Metformin Hcl (Glucophage) 500 Mg Tab 500 MG PO BID, TAB Metoprolol Succ (Toprol Xl) (Toprol-Xl) 50 Mg Tabcr 50 MG PO BID, #30 TAB Montelukast Sodium (Singulair) 10 Mg Tab 10 MG PO DAILY, TAB Discharge Exam Review of Systems: Constitutional: No chills, No fatigue, No fever, No sweats, No weakness ENT: + sore throat Respiratory: + cough (improving), + shortness of breath (improving), No hemoptysis Cardiovascular: No chest pain, No edema, No palpitations Abdomen: No constipation, No diarrhea, No nausea, No pain, No vomiting Musculoskeletal: No calf pain, No joint pain, No muscle pain, No swelling Genitourinary - Female: No dysuria, No hematuria Neurologic: No numbness/tingling, No weakness Psychiatric: + anxiety, No depression symptoms Hematologic / Lymphatic: No abnormal bleeding/bruising Integumentary: No itch, No new/changing skin lesions, No rash Physical Exam: General Appearance: no apparent distress Eyes: normal inspection, PERRL ENT: hearing grossly normal Neck: supple Respiratory/Chest: lungs clear, no respiratory distress, no accessory muscle use, + crackles (bilateral lung bases ) Cardiovascular: regular rate, rhythm Abdomen / GI: normal bowel sounds, non tender, soft Extremities: no calf tenderness, no pedal edema Neurologic/Psychiatric: alert, normal mood/affect, oriented x 3 Skin: normal color, warm/dry, no rash (Zo Naranjo, LAW) Hospital Course HPI at admission: 87 y/o F c/o SOB. Pt states that last evening she was taking her HS meds when she choked on one or more of her pills. She took all of her medications at one time and is not certain what medication it was, but she did not that she coughed up a broken red tab during this spell. During the course of the night, pt started to feel that her breathing was more difficult. She also noted that she had a fever. Early this AM she felt she was frankly SOB and came to the ED. She was noted to be 86% on RA at one point. Pt notes that her breathing feels more tight and it is more difficult for her to take a deep breath. No chest pain, but she does have marked throat pain. Pt denies abd pain, n/v/c/d, LE pain or swelling. She does feel a bit improved on the O2 via NC. She does not use O2 at baseline. Pt notes that this happened to her about a month ago while taking her medications and a nurse had to perform the Heimlich maneuver on her. She was not sent for further eval at that time. Pt notes that over the years she has had worsening coughing/choking with eating. It is not a regular occurrence, but does happen if she is eating and laughing or talking at times. Her family feels it is more frequent, but not daily or even weekly. Pt states when this occurs, it is usually with pills and generally does fine with other solids or liquids. Pt feels that she could swallow pills if she needs to, but feels limited due to her throat pain and would prefer minimal pills at this time. She has no prior hx of speech therapy eval. ROS as noted above, otherwise neg. Hypoxia, likely aspiration PNA related to pill aspiration in the setting of baseline asthma- IMPROVING: - Admit to tele -- Transferred to med/surg on 02/15 - O2 protocol, wean as tolerated- does NOT wear O2 supplement at home -- Requiring 2-3L at discharge - Encouraged incentive spirometer use - CXR neg for acute process - IV Levaquin- transition to PO Levaquin 750 mg daily at discharge (last day of treatment 02/20) - Speech therapy consulted, appreciate recommendations -- Reenforced speech therapies recommendations prior to discharge to prevent future aspiration events Sore throat: Chloraseptic spray and Lozenges PRN Asthma: - Continue home inhalers - DuoNebs QID CAD: Continue Aspirin/Plavix given hx of stents HTN: Metoprolol 50 mg BID, Losartan 100 mg daily Dyslipidemia: Lipitor 40 mg daily T2DM: - Metformin 500 mg BID - BSG ACHS w/ sliding insulin scale Depression: - Continue Celexa 20 mg daily - Added Ativan 0.5 mg HS to help with insomnia secondary to anxiety/coughing fits GI Prophylaxis: IV Zofran PRN, Milk of Mag PRN DVT prophylaxis: Lovenox Code Status: LEVEL I, FULL Dispo: Discharge to [facility] Total Time Spent: Greater than 30 minutes This includes examination of the patient, discharge planning, medication reconciliation, and communication with other providers. (Zo Naranjo, PA-C) i personally examined pt and verified all sanchez points w T [place] PAC feeling better still w coughing fits and mucous but improving nebs help ros otherwise negative except for as above vitals noted nad breathing unlabored no pallor or icterus aspiration pneumonia - from swallowing pills too fast - stable/improving safe for SNF level at [facility] - then can downgrade as she improves stable for transfer - otherwise as above (Forest Sibley, D.O.) Discharge Instructions Please refer to the electronic Patient Visit Report (Discharge Instructions) for additional information. (Zo Naranjo, PA-C) Follow-Up Please follow-up with [facility] provider within 24-48 hrs Please follow-up/keep all of your subspecialty appointments (Zo Naranjo, PA-C) Additional Copies To Dee Delacruz
--- NOTE | 2017-02-18 18:33 | EDITING REQUIRED CODING QUERY ---
SEPSIS Dear Dr. Sibley, To promote full compliance with coding requirements relating to patient care, physician participation is requested in all cases of nursing clinical director uncertainty. Please assist us with the question(s) below: In responding to this query, please exercise your independent professional judgement. The fact that a question is asked does not imply that any particular answer is desired or expected. We appreciate your clarification on this issue. Please clarify below by marking all that apply with a (X) in parentheses. SIRS is mentioned on a Progress note but not on the discharge summary. Medical documentation: aspiration pneumonia w acute hypoxic respiratory failure on admission, SIRS on admission - -improving -O2, nebs, levaquin, supportive care ( )Bacteremia (Nonspecific laboratory finding of bacteria in the blood) Specify Organism ( ) Present on Admission ( ) Not present on admission x(x) Unable to clinically determine - -please see chart. No blood cultures were required. ( ) Septicemia (Systemic disease associated with the presence of pathogenic microorganisms in the blood): Specify Organism ( ) Present on Admission ( ) Not present on admission (x) Unable to clinically determine - see above ( ) Sepsis Specify Organism Specify Associated Condition/Diagnosis (x ) Present on Admission - technically w WBC and HR, as well as aspiration pneumonia, she would have SIRS + site of infection making sepsis technically true. Clinically if present, sepsis was mild at worst. ( ) Not present on admission () Unable to clinically determine ( ) Severe Sepsis (Sepsis associated with acute organ dysfunction) Specify Organism Specify Associated Condition/Diagnosis ( ) Present on Admission (x ) Not present on admission () Unable to clinically determine ( ) Septic Shock (Severe sepsis with acute circulatory failure, unexplained by other causes) ( ) Present on Admission x() Not present on admission () Unable to clinically determine ( ) SIRS - Non-infective origin without organ dysfunction ( ) Present on Admission (x) Not present on admission - see above w sepsis () Unable to clinically determine ( ) SIRS Non-infective origin without organ dysfunction Ruled Out ( ) Other, patient has: ( ) Sepsis was Ruled Out Thank you for your time. Clare Mccoy, DEVELOPMENTAL [employer]LECTRONICS [employer]SEMBLER .
== END 2017-02-17 14:49 | DRG 871 ==
LOC: ENRESERVTM → ENRESERVDT → C.EDB 08:52 → C.2T 11:26 → C.MED 02-15 12:01
PROVIDERS: ADMIT Family Medicine; ATTEND Family Medicine
DX: A41.9 Sepsis, unspecified organism (principal); J69.0 Pneumonitis due to inhalation of food and vomit; I25.10 Atherosclerotic heart disease of native coronary artery without angina pectoris; I10 Essential (primary) hypertension; E78.5 Hyperlipidemia, unspecified; E11.9 Type 2 diabetes mellitus without complications; F32.9 Major depressive disorder, single episode, unspecified; F41.9 Anxiety disorder, unspecified; R07.0 Pain in throat; M99.01 Segmental and somatic dysfunction of cervical region; M99.02 Segmental and somatic dysfunction of thoracic region; Z95.5 Presence of coronary angioplasty implant and graft; Z79.899 Other long term (current) drug therapy; Z79.82 Long term (current) use of aspirin; Z79.51 Long term (current) use of inhaled steroids; Z79.84 Long term (current) use of oral hypoglycemic drugs

== ENCOUNTER → 2017-03-03 | Outpatient (CLI) | payer OTHER, BC ==
[~2017-03-03] MED LIST changes: +ACET-1256 PO; +ALBU18002 INH; -ASPEC325 PO; +ASPI-232 PO; +ATV5 PO; +CHLL MT; -CITA10TA8 PO; +CITA20TA9 PO; +CLBCRM30 EXT; -CLOP1TAB15 PO; +DOCU-94 PO; -FLNIN NAE; +FLUT0.15 NAE; +GLC/500 PO; -LISI5TAB3 PO; -LOSA100T65 PO; +LOSA1TAB38 PO; +LVQ750 PO; +MAGN400C2 PO; +MONT1TAB3 PO; -NTRAR SL; +OMEG10007 PO; -PANT40TA PO; +PLV75 PO; +[UNRECOGNIZED DRUG - CODE] MT
--- NOTE | 2017-03-03 07:53 | DIAGNOSTIC IMAGING REPORT ---
CT OF THE CHEST WITHOUT IV CONTRAST CLINICAL HISTORY: Persistent cough. COMPARISON STUDY: Chest radiograph February 14, 2017. CT DOSE: 505.24 mGycm TECHNIQUE: Axial images of the chest were obtained without IV contrast. Images were reviewed in the axial, sagittal, and coronal planes. IV contrast was not administered for this examination. FINDINGS: Size of the heart is normal. There is slight dilatation of the ascending aorta, measuring 3.8 cm. There is extensive coronary artery calcification. There are numerous calcified mediastinal and bilateral hilar lymph nodes. No pathologically enlarged lymph nodes are present. Linear bilateral lower lobe and left upper lobe opacities represent atelectasis. There is no consolidation to suggest pneumonia. The central airways are patent. The bony thorax and upper abdomen are unremarkable on this unenhanced examination. There is a small hiatal hernia. IMPRESSION: 1. No acute intrathoracic findings. 2. Linear opacities within the lungs consistent with atelectasis. No consolidation to suggest pneumonia. 3. Borderline cardiomegaly and extensive coronary artery calcification. Mild dilatation of the ascending aorta. 4. Small hiatal hernia. Electronically signed by: Twin Carlton M.D. 03/03/2017 7:52 AM Dictated Date/Time: 03/03/2017 7:43 AM
--- NOTE | 2017-03-03 08:18 | DIAGNOSTIC IMAGING REPORT ---
SINUS CT CT DOSE: 269.19 mGycm HISTORY: Sinus drainage. PERSISTENT COUGH TECHNIQUE: Multiaxial CT images of the paranasal sinuses were performed and reformatted in the coronal plane without the use of contrast. COMPARISON: Sinus CT 02/27/2010. FINDINGS: The frontal sinuses, ethmoid air cells, sphenoid sinuses, and bilateral maxillary antra are clear. The mastoid air cells are clear. The bilateral ostiomeatal units are patent. The nasal septum is midline. The orbits are unremarkable. IMPRESSION: The paranasal sinuses and mastoid air cells are clear. Electronically signed by: Andrew Munroe M.D. 03/03/2017 8:17 AM Dictated Date/Time: 03/03/2017 8:12 AM
== END | disposition home or self-care (01) ==
LOC: C.CTS 06:50
PROVIDERS: ATTEND Internal Medicine
DX: R05 Cough (principal); R09.82 Postnasal drip; K44.9 Diaphragmatic hernia without obstruction or gangrene

== ENCOUNTER → 2017-03-22 | Outpatient (CLI) | payer OTHER, BC ==
[2017-03-22 09:28] LABS: BLOOD UREA NITROGEN 21 mg/dl (7-18); BUN/CREATININE RATIO 26.6 (10-20); CALCIUM 9.5 mg/dl (8.5-10.1); CARBON DIOXIDE 27 mmol/L (21-32); CHLORIDE 102 mmol/L (98-107); GLUCOSE 90 mg/dl (70-99); POTASSIUM 4.3 mmol/L (3.5-5.1); SODIUM 136 mmol/L (136-145)
== END | disposition home or self-care (01) ==
LOC: C.LABFOXDH 08:07
PROVIDERS: ATTEND Nurse Practitioner Family
DX: G47.62 Sleep related leg cramps (principal)

== ENCOUNTER → 2017-04-27 | Outpatient (CLI) | payer OTHER, BC ==
--- NOTE | 2017-04-27 12:27 | DIAGNOSTIC IMAGING REPORT ---
VIDEO SWALLOW HISTORY: J69.0 Aspiration [id number] TECHNIQUE: Video fluoroscopic evaluation of swallowing was performed in the AP and lateral projections by the speech pathology staff. The patient is fed nectar-thick and thin liquid barium, a barium coated wafer, and barium pudding. FLUOROSCOPY TIME: 1.8 minutes. A cine loop submitted.. COMPARISON STUDY: None. FINDINGS: There is normal hyoid excursion and epiglottic deflection. No significant penetration or aspiration identified. Swallowing function is within normal limits. Incidental note is made of small anterior osteophytes within the mid to lower cervical spine resulting in mild posterior impression on the upper esophagus. Tiny focus of contrast anterior to the C6-C7 vertebral bodies. This favors a Zenker's diverticulum. IMPRESSION: 1. No aspiration identified. 2. Tiny Zenker's diverticulum. 3. Please see the speech pathologist report for detailed findings and recommendations. Electronically signed by: Andrew Munroe M.D. 04/27/2017 12:26 PM Dictated Date/Time: 04/27/2017 12:22 PM
--- NOTE | 2017-04-27 17:36 | SWALLOWING EVALUATION ---
REFERRING SPEECH PATHOLOGIST: n/a HISTORY: This 87 year-old female was referred for a VFSS at [facility] in order to follow-up a recent hospital admission for possible aspiration pneumonia in January 2017. She had a bedside swallowing assessment during that admission and did not demonstrate any s/s aspiration. The patient also has c/o pill dysphagia, increased phlegm production, and intermittent dysphonia with hoarseness. She states she is taking Tums regularly in the evening to manage digestive problems, but has no official diagnosis of GERD or LPR and no prescription medications for GERD or LPR. The patient has other PMH significant for: CAD with stent placement, asthma, DM II, hyperlipidemia and depression. Currently the patient's diet level is regular. She takes her medications whole in apple sauce. PROCEDURE: The patient was seen in the Radiology Department of [facility] for the VFSS. Cursory examination of the oral cavity revealed adequate dentition. Movement of the articulators was WNL. The patient was seated on a stool and was viewed in both the Anterior-Posterior (A-P) and Lateral planes. Volitional phonation exercises completed in the A-P plane revealed bilateral vocal fold movement and vocal intensity within functional limits. In the lateral plane, the patient was given the following boluses: 1 tsp. thin liquid barium x 2, single swallow thin liquid barium self-presented from a cup, sequential swallows of thin liquid barium self-presented from a cup, 1 tsp. nectar-thick liquid barium, single swallow nectar-thick liquid barium self-presented from a cup, 1 tsp. barium pudding, and 1 club cracker with barium pudding. The patient was then repositioned into the A-P plane and given 1 tsp. barium pudding. RESULTS: Oral Stage: No labial escape. Cohesive bolus between tongue and palate during oral bolus hold exercise with thin liquids. Bolus preparation and mastication timely and efficient. Residue collection on tongue after initial swallow of cracker bolus. Cleared with second swallow. Initiation of the pharyngeal swallow occurred latently when the bolus head was in the pyriform sinuses. The oral stage of the swallow was functionally WNL for the patient's age. Mild delay, but no significant dysfunction. Pharyngeal Stage: No bolus between the soft palate and pharyngeal wall. Complete superior motion of the thyroid cartilage with complete approximation of the arytenoids to the epiglottic petiole. Complete anterior hyoid excursion and epiglottic inversion. Complete laryngeal vestibular closure. Complete pharyngeal stripping wave. Complete pharyngeal contraction. Partial distention and duration of PES opening with small anterior osteophytes within the mid to lower cervical spine resulting in mild posterior impression on the upper esophagus and a Zenker's diverticulum at C6-7. Trace column of contrast between tongue base and posterior pharyngeal wall. Trace residue in the valleculae after the swallow that cleared with subsequent swallows. No penetration or aspiration during this study. Pharyngeal swallow function was functionally WNL; however there were s/s possible uncontrolled GERD or LPR indicated by the presence of a tiny Zenker's diverticulum. Esophageal Stage: Complete esophageal clearance without evidence of esophageal retention. SUMMARY/RECOMMENDATIONS: This patient presents with normal oral-pharyngeal swallowing. In addition, the patient presents with no s/s esophageal dysfunction. The patient's history and results of this study are indicative of LPR and/or GERD. The following is recommended: 1. Diet: Regular as tolerated 2. Compensatory Strategies: Keep head of bed elevated AT LEAST 30-degrees at all times; follow GERD precautions 3. Consideration of f/u with gastroenterology and/or otolaryngology to r/o LPR and GERD. A summary of the results and recommendations was discussed with patient and her daughter immediately following the study. They verbalized understanding and are anticipating f/u with the referring physician. Thank you for referral of this patient. Please contact me at if any additional information is needed.
== END | disposition home or self-care (01) ==
LOC: C.RAD 11:16
PROVIDERS: ATTEND Physician Assistant
DX: J69.0 Pneumonitis due to inhalation of food and vomit (principal); R13.10 Dysphagia, unspecified

== ENCOUNTER → 2017-05-26 | Outpatient (CLI) | payer OTHER, BC ==
--- NOTE | 2017-05-26 12:57 | DIAGNOSTIC IMAGING REPORT ---
RIGHT HIP UNILATERAL 2 VIEWS, LEFT HIP UNILATERAL 2 VIEWS HISTORY: 87 years-old Female R HIP PAIN Right acute bilateral hip pain without trauma. COMPARISON: CT abdomen and pelvis 10/05/2013 TECHNIQUE: 2 views of the bilateral hips FINDINGS: RIGHT: Bones are moderately demineralized. Moderate degenerative changes of the femoral acetabular joint are present. No acute fracture or dislocation. There are probable vascular calcifications of the right hemipelvis. LEFT: Moderate left hip osteoarthritis. There is no acute fracture or dislocation identified. Bones are moderately demineralized. IMPRESSION: 1. No acute fracture or dislocation. 2. Moderate degenerative changes of the bilateral hips with background osteopenia. The above report was generated using voice recognition software. It may contain grammatical, syntax or spelling errors. Electronically signed by: Jose Soriano M.D. 05/26/2017 12:56 PM Dictated Date/Time: 05/26/2017 12:54 PM
== END | disposition home or self-care (01) ==
LOC: C.RAD 12:25
PROVIDERS: ATTEND Internal Medicine
DX: M25.551 Pain in right hip (principal)

== ENCOUNTER → 2017-05-28 | Outpatient (CLI) | payer OTHER, BC | END | disposition home or self-care (01) | LOC: C.LABFOXMH 09:30 | PROVIDERS: ATTEND Internal Medicine | DX: E11.9 Type 2 diabetes mellitus without complications (principal) ==

== ENCOUNTER → 2017-07-30 | Outpatient (CLI) | payer OTHER, BC ==
[2017-07-30 08:43] LABS: ESTIMATED AVERAGE GLUCOSE 137 mg/dl; HA1C FLAG Normal (Normal)
== END | disposition home or self-care (01) ==
LOC: C.LABFOXMH 08:13
PROVIDERS: ATTEND Internal Medicine
DX: E11.9 Type 2 diabetes mellitus without complications (principal); R06.2 Wheezing

== ENCOUNTER → 2017-08-04 | Outpatient (CLI) | payer OTHER, BC ==
--- NOTE | 2017-08-04 12:14 | DIAGNOSTIC IMAGING REPORT ---
SINUSES MIN 3 VIEWS ROUTINE CLINICAL HISTORY: PROLONGED SINUS CONGESTION COMPARISON STUDY: Sinus CT March 03, 2017. FINDINGS: Sinuses are clear by radiography. Multiple dental amalgams are noted. Mastoid air cells appear well aerated. IMPRESSION: Clear sinuses by radiography. Electronically signed by: Twin Carlton M.D. 08/04/2017 12:13 PM Dictated Date/Time: 08/04/2017 12:11 PM
== END | disposition home or self-care (01) ==
LOC: C.RAD 11:17
PROVIDERS: ATTEND Internal Medicine
DX: R09.81 Nasal congestion (principal)

== ENCOUNTER → 2017-08-13 | Outpatient (CLI) | payer OTHER, BC | END | disposition home or self-care (01) | LOC: C.LABFOXMH 10:12 | PROVIDERS: ATTEND Nurse Practitioner Family | DX: R35.0 Frequency of micturition (principal) ==

== ENCOUNTER → 2017-11-05 | Outpatient (CLI) | payer OTHER, BC ==
[~2017-11-05] MED LIST changes: -METO50TA7 PO; +METO50TA8 PO
[2017-11-05 09:27] LABS: HEMOGLOBIN A1C 6.4 % (4.5-5.6)
== END | disposition home or self-care (01) ==
LOC: C.LABFOXMH 08:21
PROVIDERS: ATTEND Internal Medicine
DX: E11.9 Type 2 diabetes mellitus without complications (principal)

== ENCOUNTER → 2018-05-06 | Outpatient (CLI) | payer OTHER, BC | END | disposition home or self-care (01) | LOC: C.LABFOXMH 10:46 | PROVIDERS: ATTEND Internal Medicine | DX: R19.7 Diarrhea, unspecified (principal) ==

== ENCOUNTER 2020-12-13 11:25 | Inpatient (IN) ==
[2020-12-13 12:18] LABS: Basophils # (auto) 0.01 K/uL (0-0.2); Basophils % (auto) 0.1 %; Eosinophils # (auto) 0.06 K/uL (0-0.5); Eosinophils % (auto) 0.4 %; Hematocrit (blood only) 38.9 % (37-47); Hemoglobin 13.3 g/dL (12.0-16.0); Immature Granulocytes % (auto) 0.7 %; Lymphocytes % (auto) 9.6 %; Mean Corpuscular Hemoglobin 31.1 pg (25-34); Mean Corpuscular Hgb Conc 34.2 g/dL (32-36); Mean Corpuscular Volume 91.1 fL (80-100); Mean Platelet Volume 10.7 fL (7.4-10.4); Monocytes # (auto) 0.64 K/uL (0.11-0.59); Monocytes % (auto) 4.7 %; Neutrophils # (auto) 11.46 K/uL (1.4-6.5); Neutrophils % (auto) 84.5 %; Platelet Count 214 K/uL (130-400); RDW Coefficient of Variation 14.1 % (11.5-14.5); RDW Standard Deviation 46.6 fL (36.4-46.3); Red Blood Count 4.27 M/uL (4.2-5.4); White Blood Count 13.57 K/uL (4.8-10.8)
--- NOTE | 2020-12-13 12:26 | XRay Report ---
XR chest 1V portable CLINICAL HISTORY: Shortness of breath COMPARISON STUDY: 12/05/2020 FINDINGS: The heart is mildly enlarged. There is no failure. There are bibasilar opacities likely ate lectatic, although an infectious/inflammatory process could appear similar.. There are calcified medi astinal lymph nodes. There is minimal blunting of the lateral costophrenic angles[ IMPRESSION: 1. Bibasilar opacity statistically atelectatic, although an infectious/inflammatory process could kayley ear similar.. ACT 112: Negative or not required by law. Electronically signed by: Pito Reyes M.D. 12/13/2020 12:24 PM
[2020-12-13 12:31] LABS: INR 1.1 (0.9-1.1); Partial Thromboplastin Ratio 0.9; Partial Thromboplastin Time 24.4 Seconds (21.0-31.0); Prothrombin Time 10.8 Seconds (9.0-12.0)
--- NOTE | 2020-12-13 12:34 | Emergency Department Note ---
History of Present Illness General Chief complaint: Shortness of Breath/Dyspnea Stated complaint: LOW OXYGEN Time Seen by Provider: 12/13/20 12:31 Source: patient Mode of arrival: ambulatory Limitations: no limitations History of Present Illness Provider complaint: Shortness of breath Presents to the ED with a chief complaint of shortness of breath. The patient was evaluated at [facility] by the nurse practitioner there. She was noted to have a pulse ox on room air of 78%. The patient feels weak and tired. She has a frequent cough that is mostly nonproductive. She is considered by her pulmonology service as a silent aspirator. She has difficulty swallowing pills. She recently was placed on Augmentin liquid for her symptoms. Additional complaints this time. Her room air saturations here was 88%. Home Medications Medication Instructions Recorded Confirmed Type albuterol sulfate 90 mcg/actuation 2 puffs INHALATION Q4H PRN gm 06/10/19 12/13/20 History aerosol inhaler cetirizine 10 mg tablet 10 mg PO QPM tab 06/10/19 12/13/20 History fluticasone propionate 50 2 sprays INTRANASAL BID #1 gm 06/10/19 12/13/20 Histor y mcg/actuation nasal spray,suspension losartan 100 mg tablet 100 mg PO QAM #90 tab 06/10/19 12/13/20 History metoprolol succinate 50 mg 50 mg PO BID tab 06/10/19 12/13/20 History tablet,extended release 24 hr acetaminophen 325 mg capsule 325 mg PO QID PRN 11/06/19 12/13/20 History clobetasol 0.025 % topical cream 1 appln TOP DAILY PRN 11/06/19 12/13/20 History diclofenac sodium 1 % topical gel 2 gm TOP QID PRN 11/06/19 12/13/20 History ibuprofen 200 mg capsule 200 mg PO Q6H PRN 11/06/19 12/13/20 History ketotifen fumarate 0.025 % (0.035 1 drops OP BID PRN 11/06/19 12/13/20 History %) eye drops omega-3 fatty acids 1,000 mg 1,000 mg PO DAILY 11/06/19 12/13/20 History capsule omeprazole 20 mg capsule,delayed 20 mg PO QAM 11/06/19 12/13/20 History release oxymetazoline 0.05 % nasal spray 2 sprays INTNAS Q12H PRN 11/06/19 12/13/20 History propylene glycol 0.6 % eye drops 1 drp OP DIRECTED PRN 11/09/19 12/13/20 History empagliflozin 10 mg tablet 10 mg PO QAM 03/06/20 12/13/20 History lorazepam 0.5 mg tablet 0.5 mg PO DAILY PRN 03/06/20 12/13/20 History docusate sodium 100 mg capsule 100 mg PO BID #180 cap 04/08/20 12/13/20 Rx polyethylene glycol 3350 17 17 gm PO DAILY PRN 04/22/20 12/13/20 History gram/dose oral powder azithromycin 250 mg tablet See Rx Instructions PO .COMPLEX 09/11/20 12/13/20 Rx #12 tab cholecalciferol (vitamin D3) 50 50 mcg PO DAILY 09/11/20 12/13/20 History mcg (2,000 unit) capsule guaifenesin 600 mg tablet, 600 mg PO BID PRN 09/11/20 12/13/20 History extended release 12 hr venlafaxine 75 mg capsule,extended 75 mg PO DAILY 09/11/20 12/13/20 History release 24 hr fluticasone fur. 100 mcg-umeclid 1 inh INH QAM #60 ea 11/29/20 12/13/20 Rx 62.5 mcg-vilant 25 mcg inhalat.powder aspirin [Aspirin Low Dose] 81 mg PO QAM 12/05/20 12/13/20 History atorvastatin 10 mg PO DAILY 12/05/20 12/13/20 History azelastine 2 spray INTRANASAL BID PRN 12/05/20 12/13/20 History ipratropium-albuterol 3 ml INH Q3H PRN 12/05/20 12/13/20 History nitroglycerin 0.4 mg SL DIRECTED PRN 12/05/20 12/13/20 History amoxicillin 250 mg-potassium 10 ml PO Q8H 10 Days #300 ml 12/11/20 12/13/20 Rx clavulanate 62.5 mg/5 mL oral suspension amoxicillin 875 mg-potassium 1 tab PO Q12H #20 tab 12/11/20 12/11/20 Rx clavulanate 125 mg tablet codeine 10 mg-guaifenesin 100 mg/5 5 ml PO Q6H PRN #237 ml 12/11/20 12/13/20 Rx mL oral liquid dextromethorphan polistirex 30 10 ml PO Q12H 12/11/20 12/13/20 History mg/5 mL oral susp ext.release 12hr prednisone 10 mg tablet See Rx Instructions PO DAILY #36 12/11/20 12/13/20 Rx tab Allergies Allergy/AdvReac Type Severity Reaction Status Date / Time propoxyphene Allergy Unknown Unknown Verified 12/13/20 13:28 Past Med/Surg History Medical History (Updated 12/13/20 @ 13:03 by Karthikeyan Flower DO) Anxiety Asthma uses PRN inh twice daily on average CAD (coronary artery disease) Change in bowel habits Chronic obstructive pulmonary disease Degenerative disc disease Depression Diverticular disease DM type 2 (diabetes mellitus, type 2) NIDDM Dyslipidemia GERD (gastroesophageal reflux disease) Glaucoma Hearing deficit [place] HTN (hypertension) Hyperlipemia Osteoarthritis Sleep apnea CPAP Spinal stenosis Urinary leakage Surgical History H/O heart artery stent X 3 (2007) History of cardiac catheterization X 2 - 2007 - [place] - SOB - 3 stents (2 placed during 1st procedure and then 3rd stent placed following day) - follows with Dr. Lebron History of colonoscopy History of tonsillectomy S/P arthroscopy of knee S/P thyroidectomy S/P total abdominal hysterectomy and bilateral salpingo-oophorectomy Family History Brother Diabetes Other Coronary heart disease No family history of adverse response to anesthesia Social History Smoking Status: Never smoker Second Hand Exposure: Yes ( A CHILD); Hx Alcohol Use: Yes Alcohol type: wine Alcohol Intake Frequency Comment: Social Hx Substance Use: No Preferred Language: Kuwaiti Communication Ability: Effective Supervisor Harvesting Required: No Beliefs That Will Affect Care: None marital status: / Current Living Situation: Alone Current Living Situation Comment: Jayme Price. current occupational status: retired Feels Safe at Home: Yes Assistive Devices: Cane, CPAP, Glasses, Hearing Aid - Bilateral and Walker Review of Systems A total of 10 systems reviewed and were otherwise negative Physical Exam Vital Signs Vital Signs - 24 hr 12/13/20 11:39 12/13/20 11:58 12/13/20 12:01 Temperature 36.3 C L Temperature Source Skin Pulse Rate 76 Pulse Rate [Apical] Pulse Rate from SpO2 Sensor Pulse Rhythm Pulse Rhythm [Apical] Pulse Strength [Apical] Respiratory Rate 20 Respiratory Effort / Characteristics Non-Labored Spontaneous Non-Labored Spontaneous Respiratory Depth Normal Respiratory Pattern Regular Blood Pressure 127/71 Blood Pressure [Left Arm] Blood Pressure Mean 89 Blood Pressure Mean [Left Arm] Blood Pressure Position [Left Arm] Pulse Oximetry 90 91 88 L Oxygen Delivery Method Room Air Nasal Cannula Room Air Oxygen Flow Rate 2 Sepsis Recent Fever Within 48 Hours No Sepsis New/Unexplained Change in Mental Status N/A Sepsis Action Taken by Nursing No Action Required Oxygen Flow Rate - Titration 2 Pulse Oximetry Post Tiitration 93 12/13/20 12:11 12/13/20 13:00 12/13/20 13:11 Temperature Temperature Source Pulse Rate 75 Pulse Rate [Apical] Pulse Rate from SpO2 Sensor Pulse Rhythm Regular Pulse Rhythm [Apical] Pulse Strength [Apical] Respiratory Rate 14 Respiratory Effort / Characteristics Non-Labored Spontaneous Respiratory Depth Normal Respiratory Pattern Regular Blood Pressure Blood Pressure [Left Arm] Blood Pressure Mean Blood Pressure Mean [Left Arm] Blood Pressure Position [Left Arm] Pulse Oximetry 94 89 L Oxygen Delivery Method Nasal Cannula Nasal Cannula Room Air Oxygen Flow Rate 2 0 Sepsis Recent Fever Within 48 Hours Sepsis New/Unexplained Change in Mental Status Sepsis Action Taken by Nursing Oxygen Flow Rate - Titration 2 Pulse Oximetry Post Tiitration 90 12/13/20 13:15 Temperature Temperature Source Pulse Rate 73 Pulse Rate [Apical] 73 Pulse Rate from SpO2 Sensor 74 Pulse Rhythm Pulse Rhythm [Apical] Regular Pulse Strength [Apical] Normal Respiratory Rate 20 Respiratory Effort / Characteristics Non-Labored Spontaneous Respiratory Depth Normal Respiratory Pattern Regular Blood Pressure 131/74 Blood Pressure [Left Arm] 131/74 Blood Pressure Mean 93 Blood Pressure Mean [Left Arm] 93 Blood Pressure Position [Left Arm] Sitting Pulse Oximetry 89 L Oxygen Delivery Method Room Air Oxygen Flow Rate Sepsis Recent Fever Within 48 Hours Sepsis New/Unexplained Change in Mental Status Sepsis Action Taken by Nursing Oxygen Flow Rate - Titration Pulse Oximetry Post Tiitration CONSTITUTIONAL/VITAL SIGNS: Reviewed / noted above. GENERAL: Non-toxic in appearance. Appears tired and fatigued. INTEGUMENTARY: Warm, dry, and [place]. HEAD: Normocephalic. EYES: without scleral icterus or trauma. ENT/OROPHARYNX: clear and moist. LYMPHADENOPATHY/NECK: Is supple without lymphadenopathy or meningismus. RESPIRATORY: Lungs diminished with some crackles in the bases. CARDIOVASCULAR: Regular rate and rhythm. GI/ABDOMEN: Soft and nontender. No organomegaly or pulsatile mass. No rebound or guarding. Normal bowel sounds. EXTREMITIES: Warm and well perfused. BACK: No CVA tenderness. NEUROLOGICAL: Intact without focal deficits. PSYCHIATRIC: normal affect. MUSCULOSKELETAL: Normally developed with good muscle tone. TRIAGE NURSING DOCUMENTATION REVIEWED. Course Administered Medications Azithromycin 500 mg/ Dextrose 255 mls @ 127.5 mls/hr IV NOW STA Stop: 12/13/20 15:40 Last Admin: 12/13/20 13:53 Dose: 127.5 mls/hr Documented by: [id number] Discontinued Medications Cefepime HCl (Maxipime) 2,000 mg in 20 mls @ 5 mls/min IV NOW STA; Protocol Stop: 12/13/20 12:53 Last Admin: 12/13/20 13:11 Dose: 5 mls/min Documented by: [id number] Medical Decision Making Laboratory Data Result diagrams: 12/13/20 12:00 12/13/20 12:00 Lab Results 12/13/20 12/13/20 12/13/20 Range/Units 12:00 12:00 12:00 WBC 13.57 H (4.8-10.8) K/uL RBC 4.27 (4.2-5.4) M/uL Hgb 13.3 (12.0-16.0) g/dL Hct 38.9 (37-47) % MCV 91.1 (80-100) fL MCH 31.1 (25-34) pg MCHC 34.2 (32-36) g/dL RDW Std Deviation 46.6 H (36.4-46.3) fL RDW Coeff of Alexey 14.1 (11.5-14.5) % Plt Count 214 (130-400) K/uL MPV 10.7 H (7.4-10.4) fL Immature Gran % (Auto) 0.7 % Neut % (Auto) 84.5 % Lymph % (Auto) 9.6 % [place] % (Auto) 4.7 % Eos % (Auto) 0.4 % Baso % (Auto) 0.1 % Neut # (Auto) 11.46 H (1.4-6.5) K/uL Lymph # (Auto) 1.30 (1.2-3.4) K/uL [place] # (Auto) 0.64 H (0.11-0.59) K/uL Eos # (Auto) 0.06 (0-0.5) K/uL Baso # (Auto) 0.01 (0-0.2) K/uL Immature Gran # (Auto) 0.10 H (0.00-0.02) K/uL PT 10.8 (9.0-12.0) Seconds INR 1.1 (0.9-1.1) APTT 24.4 (21.0-31.0) Seconds PTT Ratio 0.9 Sodium 133 L (136-145) mmol/L Potassium 4.6 (3.5-5.1) mmol/L Chloride 102 (98-107) mmol/L Carbon Dioxide 24 (21-32) mmol/L Anion Gap 7.0 (3-11) BUN 37 H (7-18) mg/dl Creatinine 1.29 H (0.6-1.2) mg/dl Est Cr Clr Drug Dosing 25.6 ml/min Est GFR ( Amer) 42.8 Est GFR (Non-Af Amer) 36.9 BUN/Creatinine Ratio 28.8 H (10-20) Glucose 265 H (70-99) mg/dl Calcium 9.5 (8.5-10.1) mg/dl Magnesium 2.3 (1.8-2.4) mg/dl Total Bilirubin 0.5 (0.2-1) mg/dl AST 67 H (15-37) U/L ALT 131 H (12-78) U/L Alkaline Phosphatase 151 H (45-117) U/L Troponin I < 0.015 (0-0.045) ng/ml Total Protein 7.5 (6.4-8.2) gm/dl Albumin 3.7 (3.4-5.0) gm/dl Globulin 3.8 (2.5-4.0) gm/dl Albumin/Globulin Ratio 1.0 (0.9-2) COVID-19 Eval Order 12/13/20 Range/Units 13:31 WBC (4.8-10.8) K/uL RBC (4.2-5.4) M/uL Hgb (12.0-16.0) g/dL Hct (37-47) % MCV (80-100) fL MCH (25-34) pg MCHC (32-36) g/dL RDW Std Deviation (36.4-46.3) fL RDW Coeff of Alexey (11.5-14.5) % Plt Count (130-400) K/uL MPV (7.4-10.4) fL Immature Gran % (Auto) % Neut % (Auto) % Lymph % (Auto) % [place] % (Auto) % Eos % (Auto) % Baso % (Auto) % Neut # (Auto) (1.4-6.5) K/uL Lymph # (Auto) (1.2-3.4) K/uL [place] # (Auto) (0.11-0.59) K/uL Eos # (Auto) (0-0.5) K/uL Baso # (Auto) (0-0.2) K/uL Immature Gran # (Auto) (0.00-0.02) K/uL PT (9.0-12.0) Seconds INR (0.9-1.1) APTT (21.0-31.0) Seconds PTT Ratio Sodium (136-145) mmol/L Potassium (3.5-5.1) mmol/L Chloride (98-107) mmol/L Carbon Dioxide (21-32) mmol/L Anion Gap (3-11) BUN (7-18) mg/dl Creatinine (0.6-1.2) mg/dl Est Cr Clr Drug Dosing ml/min Est GFR ( Amer) Est GFR (Non-Af Amer) BUN/Creatinine Ratio (10-20) Glucose (70-99) mg/dl Calcium (8.5-10.1) mg/dl Magnesium (1.8-2.4) mg/dl Total Bilirubin (0.2-1) mg/dl AST (15-37) U/L ALT (12-78) U/L Alkaline Phosphatase (45-117) U/L Troponin I (0-0.045) ng/ml Total Protein (6.4-8.2) gm/dl Albumin (3.4-5.0) gm/dl Globulin (2.5-4.0) gm/dl Albumin/Globulin Ratio (0.9-2) COVID-19 Eval Order CovFluRsv at [facility] Imaging Data Radiologist's Impression: XR chest 1V portable CLINICAL HISTORY: Shortness of breath COMPARISON STUDY: 12/05/2020 FINDINGS: The heart is mildly enlarged. There is no failure. There are bibasilar opacities likely atelectatic, although an infectious/inflammatory process could appear similar.. There are calcified mediastinal lymph nodes. There is minimal blunting of the lateral costophrenic angles[ IMPRESSION: 1. Bibasilar opacity statistically atelectatic, although an infectious/inflammatory process could appear similar.. MDM Narrative This is a 82-year-old female who presents to the ED with a chief complaint of shortness of breath. Details listed above. The patient is a silent aspirator and recently was placed on liquid Augmentin. The patient was sent here today because of hypoxia with saturations of 78% on room air. Chest x-ray suggested bilateral lower lobe infiltrates/atelectasis. White blood cell count is 13.5. The patient has recently been on prednisone. Troponin was negative. EKG did not show any acute ischemic changes. The patient will be seen by the hospitalist for further evaluation and care. Impression & Plan Pneumonia Discharge Plan Visit Data Chief Complaint: Shortness of Breath/Dyspnea Stated Complaint: LOW OXYGEN ED Provider: Karthikeyan Flower Discharge Problem: Pneumonia Patient Disposition: Being Evaluated by Hospitalist Forms Stand Alone Forms: My [facility] Prescriptions Prescriptions: No Action docusate sodium [Colace] 100 mg capsule 100 mg PO BID Qty: 180 RF: 3 polyethylene glycol 3350 [Miralax] 17 gram/dose powder 17 gm PO DAILY PRN (Reason: Constipation) RF: 0 Trelegy Ellipta 100-62.5-25 mcg blister with device 1 inh INH QAM Qty: 60 RF: 5 losartan 100 mg tablet 100 mg PO QAM Qty: 90 RF: 0 fluticasone propionate 50 mcg/actuation spray,suspension 2 sprays intranasal BID Qty: 1 RF: 0 cetirizine 10 mg tablet 10 mg PO QPM RF: 0 metoprolol succinate 50 mg tablet extended release 24 hr 50 mg PO BID RF: 0 albuterol sulfate 90 mcg/actuation HFA aerosol inhaler 2 puffs inhalation Q4H PRN (Reason: Shortness Of Breath Or Wheezing) RF: 0 venlafaxine [Effexor XR] 75 mg capsule,extended release 24hr 75 mg PO DAILY RF: 0 cholecalciferol (vitamin D3) 50 mcg (2,000 unit) capsule 50 mcg PO DAILY RF: 0 guaifenesin 600 mg tablet extended release 12hr 600 mg PO BID PRN (Reason: Congestion) RF: 0 azithromycin 250 mg tablet See Rx Instructions PO .COMPLEX Qty: 12 RF: 2 omega-3 fatty acids [Fish Oil Concentrate] 1,000 mg capsule 1,000 mg PO DAILY RF: 0 omeprazole 20 mg capsule,delayed release(DR/EC) 20 mg PO QAM RF: 0 oxymetazoline [Afrin (oxymetazoline)] 0.05 % spray,non-aerosol 2 sprays INTNAS Q12H PRN (Reason: Allergy Symptoms) RF: 0 ketotifen fumarate [[place]away] 0.025 % (0.035 %) drops 1 drops OP BID PRN (Reason: Allergy Symptoms) RF: 0 clobetasol 0.025 % cream 1 appln TOP DAILY PRN (Reason: Skin Irritation) RF: 0 diclofenac sodium 1 % gel 2 gm TOP QID PRN (Reason: Pain) RF: 0 ibuprofen 200 mg capsule 200 mg PO Q6H PRN (Reason: Pain) RF: 0 acetaminophen [Tylenol] 325 mg capsule 325 mg PO QID PRN (Reason: Pain) RF: 0 Jardiance 10 mg tablet 10 mg PO QAM RF: 0 lorazepam 0.5 mg tablet 0.5 mg PO DAILY PRN (Reason: Anxiety) RF: 0 dextromethorphan polistirex [Delsym 12 hour] 30 mg/5 mL suspension,extended rel 12 hr 10 ml PO Q12H RF: 0 codeine-guaifenesin 10-100 mg/5 mL liquid 5 ml PO Q6H PRN (Reason: cough) Qty: 237 RF: 0 amoxicillin-pot clavulanate [Augmentin] 875-125 mg tablet 1 tab PO Q12H Qty: 20 RF: 0 amoxicillin-pot clavulanate [Augmentin] 250-62.5 mg/5 mL suspension for reconstitution 10 ml PO Q8H 10 Days Qty: 300 RF: 0 prednisone 10 mg tablet See Rx Instructions PO DAILY Qty: 36 RF: 0 Systane Balance 0.6 % drops 1 drp OP DIRECTED PRN (Reason: Dry Eye(S)) RF: 0 atorvastatin 10 mg tablet 10 mg PO DAILY RF: 0 aspirin [Aspirin Low Dose] 81 mg Tablet,Delayed Release (Dr/Ec) 81 mg PO QAM RF: 0 azelastine 137 mcg (0.1 %) aerosol,spray 2 spray INTRANASAL BID PRN (Reason: Allergy Symptoms) RF: 0 ipratropium-albuterol 0.5 mg-3 mg(2.5 mg base)/3 mL solution for nebulization 3 ml INH Q3H PRN (Reason: Shortness Of Breath Or Wheezing) RF: 0 nitroglycerin 0.4 mg tablet, sublingual 0.4 mg SL DIRECTED PRN (Reason: Chest Pain) RF: 0 Referrals Referrals: Jayme Price [Primary Care Provider] - Discharge Problem: Pneumonia Qualifiers: Pneumonia type: due to unspecified organism Laterality: bilateral Lung location: lower lobe of lung Qualified Code(s): J18.9 - Pneumonia, unspecified organism
[2020-12-13 12:35] LABS: Alanine Aminotransferase 131 U/L (12-78); Albumin Level 3.7 gm/dl (3.4-5.0); Aspartate Aminotransferase 67 U/L (15-37); BUN Creatinine Ratio 28.8 (10-20); Blood Urea Nitrogen 37 mg/dl (7-18); Calcium 9.5 mg/dl (8.5-10.1); Carbon Dioxide 24 mmol/L (21-32); Chloride 102 mmol/L (98-107); Creatinine Clr Calc Pharmacy 25.6 ml/min; Est GFR (African American) 42.8; Est GFR (Non-African American) 36.9; Glucose 265 mg/dl (70-99); Magnesium 2.3 mg/dl (1.8-2.4); Potassium 4.6 mmol/L (3.5-5.1); Sodium 133 mmol/L (136-145)
[2020-12-13 12:40] LABS: Alkaline Phosphatase 151 U/L (45-117); Bilirubin,Total 0.5 mg/dl (0.2-1); Globulin 3.8 gm/dl (2.5-4.0); Total Protein 7.5 gm/dl (6.4-8.2); Troponin I < 0.015 ng/ml (0-0.045)
[2020-12-13] MEDS ORDERED: CEFEPIME 2,000 MG/20 ML VIAL IV STA (12:50)
[2020-12-13] MEDS ORDERED: AZITHROMYCIN 500 MG in DEXTROSE 5% 250 ML IV STA (13:41)
--- NOTE | 2020-12-13 14:35 | History & Physical Report ---
Date of Service December 13, 2020 Assessment & Plan (1) Aspiration into airway: Patient with what seems to be like an aspiration event with likely chronic aspiration and choking with big pills she reports - Will get speech swallow consult to evlaute mechanics, keep NPO. - Pending their evaluation will follow up with barium swallow if needed/desired - Keep HOB elevated - diet and liquid pending above (2) Aspiration pneumonia: Patient with hypoxia, productive cough, WBC 12, oxygen requirement - As patient is a resident of [facility] will change antibiotics to Zosyn and Azithromycin for aspiration with co-morbids - Oxygen wean down - If no clinical improvement in oxygenation and symptoms CT scan of the chest. 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 - She was placed on prednisone last week for her cough and breathlessness, it was to stop today and was titrated down. Will discontinue. - Continue inhalers - Oxygen for SPO2 92% (4) Sleep apnea: DEEPALI autopap with mean ~10. - CPAP 10cm H2O at night (5) Type 2 diabetes mellitus: Glycemic consult until diet and liquid intake is determined - Goal <180 - No acute needs (6) CAD (coronary artery disease): No acute needs, BMS to RCA - ASA changed to ID- change back to oral when appropriate - Statin on hold- resume when appropriate - BB changed to metoprolol 5mg IV q6 hours can hold for HR <60 and SBP <90 - adjust dosing as needed (7) Dyslipidemia: Statin as above - lipids in morning (8) Irritable bowel syndrome with diarrhea: Patient was recently trialed on Azelastine for her debilitating IBS diarrhea predominent - LFTs were starting to increase after initiation- placed on hold by PCP - Continue to hold (9) Elevated liver enzymes: Check CMP in morning - follow continue to work up with PCP (10) Diverticulosis: No acute needs - Miralax when able to take PO safely History of Present Illness Chief Complaint: Hypoxia Primary Care Provider: [facility] 89 YOF resident of [facility]; with past medical history of tracheomalacia, aspiration, cough, COPD, DEEPALI with CPAP, IBS, HLD, HTN, CAD with BMS to RCA (2007) , Diverticulosis, Gastritis. Patient has been following closely with her stone polisher for dyspnea and concern of aspiration. About 2 weeks ago the patient had a likely aspiration after taking one of her pills, where she had coughing afterwards and some dyspnea. For her aspiration event she did follow up in the ER with nebulizer and pulmonary consult. She was placed on Augmentin liquid last week with no improvement This has not really gotten better and was noted to be hypoxic today and sent from [facility]. On arrival the the EMD she was 88% a chest x-ray was performed and she was started on Cefepime. Hospitalist team was notified for admission. On my evaluation the patient is very pleasant elderly female, still requiring oxygen at 2L to keep SPO2 in low to mid 90's, productive deep cough. We will admit her place her on antibiotics, speech evaluation, NPO for tonight and follow. Will keep NPO until swallow screen evaluation and/or barium swallow evaluation Allergies Allergy/AdvReac Type Severity Reaction Status Date / Time propoxyphene Allergy Unknown Unknown Verified 12/13/20 13:28 Home Medications Medication Instructions Recorded Confirmed Type albuterol sulfate 90 mcg/actuation 2 puffs INHALATION Q4H PRN gm 06/10/19 12/13/20 History aerosol inhaler cetirizine 10 mg tablet 10 mg PO QPM tab 06/10/19 12/13/20 History fluticasone propionate 50 2 sprays INTRANASAL BID #1 gm 06/10/19 12/13/20 History mcg/actuation nasal spray,suspension losartan 100 mg tablet 100 mg PO QAM #90 tab 06/10/19 12/13/20 History metoprolol succinate 50 mg 50 mg PO BID tab 06/10/19 12/13/20 History tablet,extended release 24 hr acetaminophen 325 mg capsule 325 mg PO QID PRN 11/06/19 12/13/20 History clobetasol 0.025 % topical cream 1 appln TOP DAILY PRN 11/06/19 12/13/20 History diclofenac sodium 1 % topical gel 2 gm TOP QID PRN 11/06/19 12/13/20 History ibuprofen 200 mg capsule 200 mg PO Q6H PRN 11/06/19 12/13/20 History ketotifen fumarate 0.025 % (0.035 1 drops OP BID PRN 11/06/19 12/13/20 History %) eye drops omega-3 fatty acids 1,000 mg 1,000 mg PO DAILY 11/06/19 12/13/20 History capsule omeprazole 20 mg capsule,delayed 20 mg PO QAM 11/06/19 12/13/20 History release oxymetazoline 0.05 % nasal spray 2 sprays INTNAS Q12H PRN 11/06/19 12/13/20 History propylene glycol 0.6 % eye drops 1 drp OP DIRECTED PRN 11/09/19 12/13/20 History empagliflozin 10 mg tablet 10 mg PO QAM 03/06/20 12/13/20 History lorazepam 0.5 mg tablet 0.5 mg PO DAILY PRN 03/06/20 12/13/20 History docusate sodium 100 mg capsule 100 mg PO BID #180 cap 04/08/20 12/13/20 Rx polyethylene glycol 3350 17 17 gm PO DAILY PRN 04/22/20 12/13/20 History gram/dose oral powder azithromycin 250 mg tablet See Rx Instructions PO .COMPLEX 09/11/20 12/13/20 Rx #12 tab cholecalciferol (vitamin D3) 50 50 mcg PO DAILY 09/11/20 12/13/20 History mcg (2,000 unit) capsule guaifenesin 600 mg tablet, 600 mg PO BID PRN 09/11/20 12/13/20 History extended release 12 hr venlafaxine 75 mg capsule,extended 75 mg PO DAILY 09/11/20 12/13/20 History release 24 hr fluticasone fur. 100 mcg-umeclid 1 inh INH QAM #60 ea 11/29/20 12/13/20 Rx 62.5 mcg-vilant 25 mcg inhalat.powder aspirin [Aspirin Low Dose] 81 mg PO QAM 12/05/20 12/13/20 History atorvastatin 10 mg PO DAILY 12/05/20 12/13/20 History azelastine 2 spray INTRANASAL BID PRN 12/05/20 12/13/20 History ipratropium-albuterol 3 ml INH Q3H PRN 12/05/20 12/13/20 History nitroglycerin 0.4 mg SL DIRECTED PRN 12/05/20 12/13/20 History amoxicillin 250 mg-potassium 10 ml PO Q8H 10 Days #300 ml 12/11/20 12/13/20 Rx clavulanate 62.5 mg/5 mL oral suspension codeine 10 mg-guaifenesin 100 mg/5 5 ml PO Q6H PRN #237 ml 12/11/20 12/13/20 Rx mL oral liquid dextromethorphan polistirex 30 10 ml PO Q12H 12/11/20 12/13/20 History mg/5 mL oral susp ext.release 12hr prednisone 10 mg tablet See Rx Instructions PO DAILY #36 12/11/20 12/13/20 Rx tab Past Med/Surg History Medical History (Updated 12/13/20 @ 14:56 by STUART Harris) Anxiety Asthma uses PRN inh twice daily on average CAD (coronary artery disease) Change in bowel habits Chronic obstructive pulmonary disease Degenerative disc disease Depression Diverticular disease DM type 2 (diabetes mellitus, type 2) NIDDM Dyslipidemia GERD (gastroesophageal reflux disease) Glaucoma Hearing deficit [place] HTN (hypertension) Hyperlipemia Osteoarthritis Sleep apnea CPAP Spinal stenosis Urinary leakage Surgical History H/O heart artery stent X 3 (2007) History of cardiac catheterization X 2 - 2007 - [place] - SOB - 3 stents (2 placed during 1st procedure and then 3rd stent placed following day) - follows with Dr. Lebron History of colonoscopy History of tonsillectomy S/P arthroscopy of knee S/P thyroidectomy S/P total abdominal hysterectomy and bilateral salpingo-oophorectomy Family History Brother Diabetes Other Coronary heart disease No family history of adverse response to anesthesia Social History Smoking Status: Never smoker Second Hand Exposure: Yes ( A CHILD); Hx Alcohol Use: No Hx Substance Use: No Preferred Language: Cambodian Communication Ability: Effective Cinnamon Grinder Required: No Beliefs That Will Affect Care: None marital status: / Current Living Situation: Personal Care Facility Current Living Situation Comment: [facility]. current occupational status: retired Other Information That Helps Us Care for You: No Feels Safe at Home: Yes Safety Concerns: Feels Safe At This Time Assistive Devices: Glasses, Hearing Aid - Left, Hearing Aid - Right, Oxygen - Continuous and Walker Review of Systems Review of Systems: REVIEW OF SYSTEMS: Constitutional: Well appearing (+) subjective reports of fevers Eyes: No diplopia, no worsening or blurred vision ENT: (+) difficulty swallowing, normal hearing, Respiratory: (+) cough, sputum, dyspnea on exertion, dyspnea at rest improved Cardiovascular: No chest pain, tightness or palpitations Abdomen: (+) IBS with diarrhea, No pain, nausea, vomiting Musculoskeletal: No joint pain, calf pain, swelling Neurologic: No weakness, numbness/tingling, or balance problems Psychiatric: No anxiety or depression Skin: No rash or itch Physical Exam Physical Exam: PHYSICAL EXAM: General: awake, alert, no apparent distress Head: Normocephalic, atraumatic ENT: PERRLA, EOMI, no pharyngeal exudate, mucous membranes moist Neuro: AAO x 3, speech clear and appropriate, strength intact bilaterally 5/5, sensation intact and equal all extremities and dermatomes, no pronator drift Chest: equal rise and fall of the chest, no accessory muscle use, no heaves or thrills, expiratory wheeze, frequent productive cough with demised bases bi laterally on auscultation, on 2lNC Cardiac: Regular rate and rhythm, telemetry reviewed, skin warm dry, cap refill <3 seconds, peripheral pusles +2 no JVD, no murmur, no JVD, no edema GI: NABS x 4 quadrants, soft, nontender to palpation, no rebound, guarding or tenderness : Spontaneously voiding, no pain, no CVA tenderness, Extremities: Normal inspection, no peripheral edema or erythema, calfs nontender to palpation Psych: Normal mood and affect Skin: no rash or erythema Results & Data Results & Data ([facility]) Vital Signs (Past 12 Hours) Vital Signs Temp Pulse Pulse Resp BP BP Pulse Ox 12/13/20 13:15 73 73 20 131/74 131/74 89 L 12/13/20 13:00 89 L 12/13/20 12:11 75 14 94 12/13/20 12:01 88 L 12/13/20 11:58 91 12/13/20 11:39 36.3 C L 76 20 127/71 90 Laboratory Results Abnormal lab results 12/13/20 12/13/20 Range/Units 12:00 12:00 WBC 13.57 H (4.8-10.8) K/uL RDW Std Deviation 46.6 H (36.4-46.3) fL MPV 10.7 H (7.4-10.4) fL Neut # (Auto) 11.46 H (1.4-6.5) K/uL [place] # (Auto) 0.64 H (0.11-0.59) K/uL Immature Gran # (Auto) 0.10 H (0.00-0.02) K/uL Sodium 133 L (136-145) mmol/L BUN 37 H (7-18) mg/dl Creatinine 1.29 H (0.6-1.2) mg/dl BUN/Creatinine Ratio 28.8 H (10-20) Glucose 265 H (70-99) mg/dl AST 67 H (15-37) U/L ALT 131 H (12-78) U/L Alkaline Phosphatase 151 H (45-117) U/L Diagnostic Findings XR chest 1V portable CLINICAL HISTORY: Shortness of breath COMPARISON STUDY: 12/05/2020 FINDINGS: The heart is mildly enlarged. There is no failure. There are bibasilar opacities likely atelectatic, although an infectious/inflammatory process could appear similar.. There are calcified mediastinal lymph nodes. There is minimal blunting of the lateral costophrenic angles[ IMPRESSION: 1. Bibasilar opacity statistically atelectatic, although an infectious/inflamma tory process could appear similar.. ECG Additional Comments: Normal sinus rhythm Left axis deviation Left bundle branch block. Code Status & VTE Plan Code Status CODE: FULL VTE: SCD's, Lovenox VTE Prophylaxis Plan VTE Prophylaxis will be ordered: Yes Supervising Physician Co-Signing Physician Notes Patient was seen and examined independently I discussed the case with Mark DAVIDSON I reviewed pertinent past medical social family history and also the plan of care and agree with the plan of care. Patient seen the emergency department in the company of her daughter. She had a very loose cough which sounded consistent with aspiration. She was attempted to be treated as an outpatient but returned with worsening symptoms she does have evidence of chest x-ray changes of pneumonia. The patient was found have a new left bundle branch block which she is asymptomatic for cardiac symptoms Her troponin is negative Patiently brought into facility treat antibiotics a speech therapy evaluation be undertaken. She did speech therapy evaluation some years ago the daughter recalls She has an aspiration precautions but will be allowed to have her beta-blockers to continue to control her hypertension and for CAD prevention Any exceptions will be noted below PG Care Time/CCT Total # of Minutes Spent Total Time Spent with Patient: Total time spent is greater than 50% in coordination of care (as documented) at patient's floor/unit and/or counseling patient: Coding Level of Care Code 36654 Initial Inpt Care Lvl 3 Diagnoses Aspiration into airway Encounter type: sequela Aspiration pneumonia J69.0 Aspiration pneumonia type: unspecified Laterality: bilateral Lung location: lower lobe of lung COPD (chronic obstructive pulmonary disease) J44.9 COPD type: unspecified COPD Sleep apnea G47.33 Sleep apnea type: obstructive Type 2 diabetes mellitus E11.9 Diabetes mellitus complication status: without complication Diabetes mellitus long chain beamer insulin use: without long chain beamer use CAD (coronary artery disease) I25.10 Associated angina: without angina Coronary Disease-Associated Artery/Lesion type: [place] artery [place] vs. transplanted heart: [place] heart Dyslipidemia E78.5 Irritable bowel syndrome with diarrhea K58.0 Elevated liver enzymes R74.8 Diverticulosis K57.90 (1) Sleep apnea Sleep apnea type: obstructive Qualified Code(s): G47.33 - Obstructive sleep apnea (adult) (pediatric) (2) Type 2 diabetes mellitus Diabetes mellitus complication status: without complication Diabetes mellitus long chain beamer insulin use: without long chain beamer use Qualified Code(s): E11.9 - Type 2 diabetes mellitus without complications (3) CAD (coronary artery disease) Associated angina: without angina Coronary Disease-Associated Artery/Lesion type: [place] artery [place] vs. transplanted heart: [place] heart Qualified Code(s): I25.10 - Atherosclerotic heart disease of [place] coronary artery without angina pectoris (4) Aspiration into airway Encounter type: sequela Qualified Code(s): T1S - Unspecified foreign body in respiratory tract, part unspecified causing other injury, sequela (5) Aspiration pneumonia Aspiration pneumonia type: unspecified Laterality: bilateral Lung location: lower lobe of lung Qualified Code(s): J69.0 - Pneumonitis due to inhalation of food and vomit (6) COPD (chronic obstructive pulmonary disease) COPD type: unspecified COPD Qualified Code(s): J44.9 - Chronic obstructive pulmonary disease, unspecified
[2020-12-13 14:36] LABS: Influenza A virus by PCR Negative (Neg); Influenza B virus by PCR Negative (Neg); RSV by PCR Negative (Neg); SARS CoV2 RNA(COVID-19) InHosp NEGATIVE (Negative)
--- NOTE | 2020-12-13 16:06 | Electrocardiogram Report ---
Test Reason : Blood Pressure : / mmHG Vent. Rate : 075 BPM Atrial Rate : 075 BPM P-R Int : 168 ms QRS Dur : 134 ms QT Int : 418 ms P-R-T Axes : 057 -31 026 degrees QTc Int : 466 ms Normal sinus rhythm Left axis deviation Left bundle branch block Abnormal ECG When compared with ECG of 14-FEB-2017 09:33, Left bundle branch block is now Present Confirmed by Sandeep Bourgeois ([id number]) on 12/13/2020 4:06:08 PM Referred By: ED Confirmed By:Woodrow Bourgeois
[2020-12-13] MEDS ORDERED: GLUCOSE 10 TABS/TUBE PO PRN (16:55)
[2020-12-13] MEDS ORDERED: OXYMETAZOLINE 0.05% 30 ML BTL PRN (16:55)
[2020-12-13] MEDS ORDERED: DICLOFENAC SOD 1% GEL 100 GM TUBE EXT PRN (16:55)
[2020-12-13] MEDS ORDERED: ALBUTEROL HFA 8 GM INHALER INH PRN (16:55)
[2020-12-13] MEDS ORDERED: PIPERACILL/TAZOBAC CONSULT ACTIVE PRN (16:55)
[2020-12-13] MEDS ORDERED: ALBUT/IPRATROP 3MG/0.5MG NEB 3 ML VIAL INH PRN (16:55)
[2020-12-13] MEDS ORDERED: CARBOHYDRATES FOR HYPOGLYCEMIA PO PRN (16:55)
[2020-12-13] MEDS ORDERED: DEXTROSE 50% 50 ML SYRINGE IV PRN (16:55)
[2020-12-13] MEDS ORDERED: GLUCOSE 40% GEL 15 GM TUBE PO PRN (16:55)
[2020-12-13] MEDS ORDERED: GLUCAGON FOR INJ 1 MG VIAL SQ PRN (16:55)
[2020-12-13] MEDS ORDERED: NITROGLYCERIN SL 0.4 MG/TAB TAB SL PRN (16:55)
[2020-12-13] MEDS ORDERED: PHARMACY GLYCEMIC MGMT CONSULT PRN (17:26)
[2020-12-13] MEDS ORDERED: ARTIFICIAL TEARS OP PRN (17:28)
[2020-12-13] MEDS ORDERED: D5W AND LACTATED RINGERS 1,000 ML IV ONE (17:30)
[2020-12-13] MEDS ORDERED: PIPERACILLIN/TAZOBACTAM 3.375 GM in DEXTROSE 5% 100 ML IV ONE (18:00)
[2020-12-13] MEDS ORDERED: METOPROLOL TARTRATE 1 MG/ML VIAL IV SCH (18:00)
[2020-12-13] MEDS: ENOXAPARIN INJ 30 MG/0.3 ML SYR SQ SCH (18:40)
[2020-12-13] MEDS: INSULIN ASPART 100 UNITS/ML 3 ML PEN SC SCH (18:44)
--- NOTE | 2020-12-13 20:13 | Pharmacy Report ---
Pharmacy Glycemic Short Note 2 - Date of Service December 13, 2020 - Glycemic Short BSG Results (Last 24 hours): 12/13/20 12/13/20 12:00 18:43 Glucose 265 H POC Glucose 161 H OUTPATIENT ANTIDIABETIC REGIMEN: * Empagliflozin 10 mg qam * A1c = 6.9 % (11/14/20) ASSESSMENT: * Abbi is a 89 yo T2DM admitted for aspiration pneumonia * She is well maintained on a single oral agent as an outpatient (based on most recent A1c) * She is currently NPO. * Will start SQ bolus insulin only and hold off on basal insulin until fasting BSG is available. PLAN FOR INPATIENT GLYCEMIC CONTROL: * Hold outpatient oral diabetes medications * Basal insulin * none * Bolus insulin * NovoLog per scale ACHS or Q6hrs while NPO * Goal Range: Low 120 mg/dL - High 160 mg/dL * Correction Factor: 30 mg/dL/unit * Nutritional / Prandial insulin per carb ratio of 1 unit per 15 grams CHO consumed
[2020-12-13] MEDS: FLUTICASONE PROPIONATE NA SPR 16 GM BTL SCH (21:15)
[2020-12-13] MEDS: METOPROLOL TARTRATE 25 MG TAB PO SCH (21:16)
[2020-12-13] MEDS ORDERED: Nursing to Pharmacy Communication SCH (23:30)
[2020-12-14] MEDS: INSULIN ASPART 100 UNITS/ML 3 ML PEN SC SCH ×4 (00:35→21:18)
[2020-12-14] MEDS: PIPERACILLIN/TAZOBACTAM 3.375 GM in DEXTROSE 5% 100 ML IV SCH ×3 (02:30→18:07)
[2020-12-14 06:20] LABS: Basophils # (auto) 0.03 K/uL (0-0.2); Basophils % (auto) 0.3 %; Eosinophils # (auto) 0.29 K/uL (0-0.5); Eosinophils % (auto) 3.1 %; Hematocrit (blood only) 36.9 % (37-47); Immature Granulocytes % (auto) 1.1 %; Lymphocytes # (auto) 2.59 K/uL (1.2-3.4); Lymphocytes % (auto) 27.3 %; Mean Corpuscular Hemoglobin 30.2 pg (25-34); Mean Corpuscular Hgb Conc 32.5 g/dL (32-36); Mean Corpuscular Volume 92.7 fL (80-100); Mean Platelet Volume 10.6 fL (7.4-10.4); Monocytes # (auto) 0.77 K/uL (0.11-0.59); Monocytes % (auto) 8.1 %; Neutrophils # (auto) 5.72 K/uL (1.4-6.5); Neutrophils % (auto) 60.1 %; Platelet Count 171 K/uL (130-400); RDW Coefficient of Variation 13.9 % (11.5-14.5); RDW Standard Deviation 47.2 fL (36.4-46.3); Red Blood Count 3.98 M/uL (4.2-5.4)
[2020-12-14 06:55] LABS: BUN Creatinine Ratio 30.3 (10-20); Calcium 8.6 mg/dl (8.5-10.1); Est GFR (African American) 53.1; Est GFR (Non-African American) 45.8; Magnesium 2.3 mg/dl (1.8-2.4); Potassium 3.9 mmol/L (3.5-5.1)
[2020-12-14 07:22] LABS: Estimated Average Glucose 166 mg/dl; Hemoglobin A1C 7.4 % (4.5-5.6)
--- NOTE | 2020-12-14 07:52 | Hospitalist Progress Note ---
Date of Service December 14, 2020 Assessment & Plan (1) Aspiration into airway: Patient with what seems to be like an aspiration event with likely chronic aspiration and choking with big pills she reports. Hx tracheomalacia and recent prednisone for COPD/pna * Speech eval pending * Continued on oral metoprolol BID and ASA 81mg daily -- these have been continued and no issues reported. Does well with applesauce * Head of bed was flat upon initial entry to room and was elevated with improvement per patient --> asked nursing to ensure HOB remains elevated to prevent further aspiration * Had been on liquid Augmentin as well as guafenicin-codeine liquid for cough suppression ACCOUNT RECEIVABLE ASSOCIATE without improvement * Continue Zosyn/Azithromycin IV (day 2 of therapy) for aspiration pneumonia (of note, patient does have hx cdiff and will need to monitor stool/BMs) * Giving atrovent neb x 1 now for tightness/wheezing and to help with secretions -- consider glycopyyrate?? * Anticipate need for swallow study pending speech eval * Will continue to keep NPO -- had received IVF and Creatinine elevated on admission to 1.29 and improved to 1.08 on AM labs. Will order gentle IVF until able to order diet to prevent dehydration * Procal 0.19, CRP 4.34 * WBC now wnl 13.5k --> 9.5k and has been afebrile * Continue to monitor labs, electrolyte replacement as needed (2) Aspiration pneumonia: * Patient with hypoxia, productive cough, WBC 12, oxygen requirement * As patient is a resident of [facility])will change antibiotics to Zosyn and Azithromycin for aspiration with co-morbids as above * Titrate O2 as tolerated -- currently 93% on 2L * Speech consulted as above * Added incentive spirometry, flutter valve. * Sputum cx if able to produce -- consider additional allergy medication given her history of ENT surgeries/post-nasal drip and on zyrtec daily. Follows locally with Benjie Shetty * Improving clinically and reported by patient * Continue to monitor - If no clinical improvement in oxygenation and symptoms CT scan of the chest. (3) COPD (chronic obstructive pulmonary disease): * COPD with asthma. Follows with Benjie Shetty * - appears to be tolerating her current inhaler regime- as normally her breathlessness is improved and activity has not been effected prior to her aspiration event. * - She was placed on prednisone last week for her cough and breathlessness, it was to stop today and was titrated down. Will discontinue. * - Continue inhalers -- added atovent neb x 1 today and utilizing prn for wheezing/sob * Reported SOB lying flat, however could be from some aspiration. No JVD/edema * Oxygen for SPO2 92% -- maintained currently on 2L * Continue to monitor (4) Sleep apnea: * DEEPALI autopap with mean ~10. * CPAP 10cm H2O at night (5) Type 2 diabetes mellitus: * Glycemic consult until diet and liquid intake is determined * Goal <180 * On empagliflozin 10mg daily ACCOUNT RECEIVABLE ASSOCIATE * Monitor BSGs (6) CAD (coronary artery disease): * with HTN/HLD * No acute needs, BMS to RCA. Follows with Dr. Lebron * From most recent note: * "Cardiac catheterization 2007 with mild atherosclerotic disease of LAD, small caliber mid and distal LAD, severe proximal stenosis of left circumflex marginal, severe distal RCA stenosis, and 50% right posterior or lateral stenosis. 3.5 x 8 mm bare-metal stent distal RCA. 2 bare-metal stents left circumflex marginal. 2.75 x 12 mm and 2.75 x 8 mm bare metal stents. 30% ostial left circumflex, 20% mid left circumflex, 30-40% proximal RCA stenoses also noted. LV ejection fraction normal. Normal left ventricular wall motion." * To have follow up with Dr. Lebron routine scheduled next week * Continued ASA 81mg daily and metoprolol 12.5mg BID * Holding losartan, atorvastatin (lipid panel with elevated triglycerides 287 and 194 on prior draw -- may need additional agent at d/c) * BP stable 122/72 * NO chest pain reported (7) Dyslipidemia: * Statin on hold until eval by speech -- on atorvastatin 10mg daily ACCOUNT RECEIVABLE ASSOCIATE * Lipid panel -- triglycerides elevated 287 from 194 prior -- will need to address prior to d/c * Cholesterol 129, LDL 36 HDL 36 * Consider zetia, gemfibrozil at d/c? vs d/c omega 3 (8) Irritable bowel syndrome with diarrhea: * Patient was recently trialed on Viberzi for her debilitating IBS diarrhea predominant * LFTs were starting to increase after initiation- placed on hold by PCP * Continue to hold --> LFTs improving * Will add cdiff given history and monitor while on abx * also hold statin (9) Elevated liver enzymes: * Added LFTs to AM labs -- improving. See above * Continue to monitor (10) Diverticulosis: * No acute needs * Miralax when able to take PO safely Reflux * on omeprazole ACC[employer] RECEIVABLE ASSOCIATE * placing on Pepcid IV daily while NPO for abvoe Dispo: continued inpatient stay Admission and Anticipated Discharge Date Admission Date: December 13, 2020 Supervising Physician Co-Signing Physician Notes ISABELLA Supervision Note: I did not personally see or examine the patient today, but I verified all sanchez points of ISABELLA Molina's assessment and plan with the following exceptions/additions: -Consider CT of the chest and pulmonary consult if not improving with her hypoxia. -Collect sputum culture if able to -For new LBBB, and history of CAD, along with small pleural effusions on chest x-ray, cough, hypoxia-check echocardiogram and proBNP in the morning Subjective Patient seen this morning. States cough better and actually feels like things are moving. Still with some tightness/wheezing but states work of breathing when taking deep breaths is much improved. She states the supplemental oxygen has been very helpful at providing her with some relief. Discussed will order neb treatment now to help with tightness and then if needed can order prn. Has tried Tessalon pearls in past without much help. She states she was taking guaifenesin-codeine cough syrup without relief either and did not help her cough. She states she did have prior ENT surgery for sinuses and remains on Zyrtec daily. Also on nasal sprays but does not appear to have anything like Montelukast or Singular which may be of additional benefit. Prior Augmentin liquid due to difficulty with swallowing larger pills -- has been ongoing issue. Discussed liquids not ideal with hx aspiration and awaiting eval by speech today prior to feeding. Tolerated PO metoprolol and her aspirin without issues. She states "I did have some increased cough when I was lying flat in bed" -- I elevated the head of bed and she states much more comfortable. Follows with Dr. Lebron from cardiology and states she has an appointment next week for routine check up. Daughter is doctor and traveling back from [place] or [place] and plans on visiting possibly tomorrow before heading home. She states she will ask her to let nursing know when/if update needed this afternoon but I will attempt calling after 3pm. 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 No fever, chills, chest pain, abdominal pain, nausea, vomiting, dysuria. Continues to remain NPO until speech. Review of Systems Review of Systems: All systems reviewed & are unremarkable except as noted in HPI & below Physical Exam Physical Exam: General: awake, alert, no apparent distress, resting comfortably in bed once head of head elevated (previously was laying almost completely flat) Head: Normocephalic, atraumatic ENT: PERRLA, EOMI, slightly dry mm, boggy nasal turbinates Chest: equal rise and fall of the chest, no accessory muscle use, no heaves or thrills, + expiratory wheeze, frequent productive cough with demised bases bilaterally on auscultation, on 2lNC with O2 sat 92% currently Cardiac: RRR, cap refill <3 seconds, peripheral pulses +2 no JVD, no murmur, no JVD, no edema and calves non-tender to palpation bilaterally GI: NABS x 4 quadrants, soft, nontender to palpation, no rebound, guarding or tenderness : Spontaneously voiding, no pain, no CVA tenderness, Extremities: Normal inspection, no peripheral edema or erythema, calfs nontender to palpation Psych: AOx3, euthymic effect Neuro: AAO x 3, speech clear and appropriate, strength intact bilaterally 5/5, sensation intact and equal all extremities and dermatomes, no pronator drift Skin: no rash or erythema Results & Data Results & Data ([facility]) Vital Signs (Past 12 Hours) Vital Signs Temp Pulse Resp BP Pulse Ox 12/13/20 22:54 36.3 C L 67 17 121/71 96 Laboratory Results 12/14/20 12/14/20 12/14/20 Range/Units 06:05 05:33 05:33 WBC (4.8-10.8) K/uL RBC (4.2-5.4) M/uL Hgb (12.0-16.0) g/dL Hct (37-47) % MCV (80-100) fL MCH (25-34) pg MCHC (32-36) g/dL RDW Std Deviation (36.4-46.3) fL RDW Coeff of Alexey (11.5-14.5) % Plt Count (130-400) K/uL MPV (7.4-10.4) fL Immature Gran % (Auto) % Neut % (Auto) % Lymph % (Auto) % Ritchie % (Auto) % Eos % (Auto) % Baso % (Auto) % Neut # (Auto) (1.4-6.5) K/uL Lymph # (Auto) (1.2-3.4) K/uL Ritchie # (Auto) (0.11-0.59) K/uL Eos # (Auto) (0-0.5) K/uL Baso # (Auto) (0-0.2) K/uL Immature Gran # (Auto) (0.00-0.02) K/uL PT (9.0-12.0) Seconds INR (0.9-1.1) APTT (21.0-31.0) Seconds PTT Ratio Sodium 140 D (136-145) mmol/L Potassium 3.9 D (3.5-5.1) mmol/L Chloride 108 H (98-107) mmol/L Carbon Dioxide 26 (21-32) mmol/L Anion Gap 6.0 (3-11) BUN 33 H (7-18) mg/dl Creatinine 1.08 (0.6-1.2) mg/dl Est Cr Clr Drug Dosing 30.0 ml/min Est GFR ( Amer) 53.1 Est GFR (Non-Af Amer) 45.8 BUN/Creatinine Ratio 30.3 H (10-20) Glucose 141 H (70-99) mg/dl POC Glucose 150 H (70-99) mg/dl Estimat Average Glucose 166 mg/dl Hemoglobin A1c 7.4 H (4.5-5.6) % Calcium 8.6 (8.5-10.1) mg/dl Magnesium 2.3 (1.8-2.4) mg/dl Total Bilirubin (0.2-1) mg/dl AST (15-37) U/L ALT (12-78) U/L Alkaline Phosphatase (45-117) U/L Troponin I (0-0.045) ng/ml C-Reactive Protein (0-0.29) mg/dl Total Protein (6.4-8.2) gm/dl Albumin (3.4-5.0) gm/dl Globulin (2.5-4.0) gm/dl Albumin/Globulin Ratio (0.9-2) Triglycerides 287 H (0-150) mg/dl Cholesterol 129 (0-200) mg/dl LDL Cholesterol, Calc 36 mg/dl VLDL Cholesterol, Calc 57 mg/dl HDL Cholesterol 36 mg/dl Cholesterol/HDL Ratio 4 Procalcitonin (0-0.5) ng/ml Nasal Screen MRSA (PCR) (Negative) COVID-19 Eval Order SARS-CoV-2 (PCR) (Negative) Influenza Type A (PCR) (Neg) Influenza Type B (PCR) (Neg) RSV (RT-PCR) (Neg) 12/14/20 12/13/20 12/13/20 Range/Units 05:33 23:58 18:43 WBC 9.50 (4.8-10.8) K/uL RBC 3.98 L (4.2-5.4) M/uL Hgb 12.0 (12.0-16.0) g/dL Hct 36.9 L (37-47) % MCV 92.7 (80-100) fL MCH 30.2 (25-34) pg MCHC 32.5 (32-36) g/dL RDW Std Deviation 47.2 H (36.4-46.3) fL RDW Coeff of Alexey 13.9 (11.5-14.5) % Plt Count 171 (130-400) K/uL MPV 10.6 H (7.4-10.4) fL Immature Gran % (Auto) 1.1 % Neut % (Auto) 60.1 % Lymph % (Auto) 27.3 % Ritchie % (Auto) 8.1 % Eos % (Auto) 3.1 % Baso % (Auto) 0.3 % Neut # (Auto) 5.72 (1.4-6.5) K/uL Lymph # (Auto) 2.59 (1.2-3.4) K/uL Ritchie # (Auto) 0.77 H (0.11-0.59) K/uL Eos # (Auto) 0.29 (0-0.5) K/uL Baso # (Auto) 0.03 (0-0.2) K/uL Immature Gran # (Auto) 0.10 H (0.00-0.02) K/uL PT (9.0-12.0) Seconds INR (0.9-1.1) APTT (21.0-31.0) Seconds PTT Ratio Sodium (136-145) mmol/L Potassium (3.5-5.1) mmol/L Chloride (98-107) mmol/L Carbon Dioxide (21-32) mmol/L Anion Gap (3-11) BUN (7-18) mg/dl Creatinine (0.6-1.2) mg/dl Est Cr Clr Drug Dosing ml/min Est GFR ( Amer) Est GFR (Non-Af Amer) BUN/Creatinine Ratio (10-20) Glucose (70-99) mg/dl POC Glucose 136 H 161 H (70-99) mg/dl Estimat Average Glucose mg/dl Hemoglobin A1c (4.5-5.6) % Calcium (8.5-10.1) mg/dl Magnesium (1.8-2.4) mg/dl Total Bilirubin (0.2-1) mg/dl AST (15-37) U/L ALT (12-78) U/L Alkaline Phosphatase (45-117) U/L Troponin I (0-0.045) ng/ml C-Reactive Protein (0-0.29) mg/dl Total Protein (6.4-8.2) gm/dl Albumin (3.4-5.0) gm/dl Globulin (2.5-4.0) gm/dl Albumin/Globulin Ratio (0.9-2) Triglycerides (0-150) mg/dl Cholesterol (0-200) mg/dl LDL Cholesterol, Calc mg/dl VLDL Cholesterol, Calc mg/dl HDL Cholesterol mg/dl Cholesterol/HDL Ratio Procalcitonin (0-0.5) ng/ml Nasal Screen MRSA (PCR) (Negative) COVID-19 Eval Order SARS-CoV-2 (PCR) (Negative) Influenza Type A (PCR) (Neg) Influenza Type B (PCR) (Neg) RSV (RT-PCR) (Neg) 12/13/20 12/13/20 12/13/20 Range/Units 15:22 15:04 15:04 WBC (4.8-10.8) K/uL RBC (4.2-5.4) M/uL Hgb (12.0-16.0) g/dL Hct (37-47) % MCV (80-100) fL MCH (25-34) pg MCHC (32-36) g/dL RDW Std Deviation (36.4-46.3) fL RDW Coeff of Alexey (11.5-14.5) % Plt Count (130-400) K/uL MPV (7.4-10.4) fL Immature Gran % (Auto) % Neut % (Auto) % Lymph % (Auto) % Ritchie % (Auto) % Eos % (Auto) % Baso % (Auto) % Neut # (Auto) (1.4-6.5) K/uL Lymph # (Auto) (1.2-3.4) K/uL Ritchie # (Auto) (0.11-0.59) K/uL Eos # (Auto) (0-0.5) K/uL Baso # (Auto) (0-0.2) K/uL Immature Gran # (Auto) (0.00-0.02) K/uL PT (9.0-12.0) Seconds INR (0.9-1.1) APTT (21.0-31.0) Seconds PTT Ratio Sodium (136-145) mmol/L Potassium (3.5-5.1) mmol/L Chloride (98-107) mmol/L Carbon Dioxide (21-32) mmol/L Anion Gap (3-11) BUN (7-18) mg/dl Creatinine (0.6-1.2) mg/dl Est Cr Clr Drug Dosing ml/min Est GFR ( Amer) Est GFR (Non-Af Amer) BUN/Creatinine Ratio (10-20) Glucose (70-99) mg/dl POC Glucose (70-99) mg/dl Estimat Average Glucose mg/dl Hemoglobin A1c (4.5-5.6) % Calcium (8.5-10.1) mg/dl Magnesium (1.8-2.4) mg/dl Total Bilirubin (0.2-1) mg/dl AST (15-37) U/L ALT (12-78) U/L Alkaline Phosphatase (45-117) U/L Troponin I (0-0.045) ng/ml C-Reactive Protein 4.34 H (0-0.29) mg/dl Total Protein (6.4-8.2) gm/dl Albumin (3.4-5.0) gm/dl Globulin (2.5-4.0) gm/dl Albumin/Globulin Ratio (0.9-2) Triglycerides (0-150) mg/dl Cholesterol (0-200) mg/dl LDL Cholesterol, Calc mg/dl VLDL Cholesterol, Calc mg/dl HDL Cholesterol mg/dl Cholesterol/HDL Ratio Procalcitonin 0.17 (0-0.5) ng/ml Nasal Screen MRSA (PCR) Negative (Negative) COVID-19 Eval Order SARS-CoV-2 (PCR) (Negative) Influenza Type A (PCR) (Neg) Influenza Type B (PCR) (Neg) RSV (RT-PCR) (Neg) 12/13/20 12/13/20 12/13/20 Range/Units 13:31 13:31 12:00 WBC (4.8-10.8) K/uL RBC (4.2-5.4) M/uL Hgb (12.0-16.0) g/dL Hct (37-47) % MCV (80-100) fL MCH (25-34) pg MCHC (32-36) g/dL RDW Std Deviation (36.4-46.3) fL RDW Coeff of Alexey (11.5-14.5) % Plt Count (130-400) K/uL MPV (7.4-10.4) fL Immature Gran % (Auto) % Neut % (Auto) % Lymph % (Auto) % Ritchie % (Auto) % Eos % (Auto) % Baso % (Auto) % Neut # (Auto) (1.4-6.5) K/uL Lymph # (Auto) (1.2-3.4) K/uL Ritchie # (Auto) (0.11-0.59) K/uL Eos # (Auto) (0-0.5) K/uL Baso # (Auto) (0-0.2) K/uL Immature Gran # (Auto) (0.00-0.02) K/uL PT (9.0-12.0) Seconds INR (0.9-1.1) APTT (21.0-31.0) Seconds PTT Ratio Sodium 133 L (136-145) mmol/L Potassium 4.6 (3.5-5.1) mmol/L Chloride 102 (98-107) mmol/L Carbon Dioxide 24 (21-32) mmol/L Anion Gap 7.0 (3-11) BUN 37 H (7-18) mg/dl Creatinine 1.29 H (0.6-1.2) mg/dl Est Cr Clr Drug Dosing 25.6 ml/min Est GFR ( Amer) 42.8 Est GFR (Non-Af Amer) 36.9 BUN/Creatinine Ratio 28.8 H (10-20) Glucose 265 H (70-99) mg/dl POC Glucose (70-99) mg/dl Estimat Average Glucose mg/dl Hemoglobin A1c (4.5-5.6) % Calcium 9.5 (8.5-10.1) mg/dl Magnesium 2.3 (1.8-2.4) mg/dl Total Bilirubin 0.5 (0.2-1) mg/dl AST 67 H (15-37) U/L ALT 131 H (12-78) U/L Alkaline Phosphatase 151 H (45-117) U/L Troponin I < 0.015 (0-0.045) ng/ml C-Reactive Protein (0-0.29) mg/dl Total Protein 7.5 (6.4-8.2) gm/dl Albumin 3.7 (3.4-5.0) gm/dl Globulin 3.8 (2.5-4.0) gm/dl Albumin/Globulin Ratio 1.0 (0.9-2) Triglycerides (0-150) mg/dl Cholesterol (0-200) mg/dl LDL Cholesterol, Calc mg/dl VLDL Cholesterol, Calc mg/dl HDL Cholesterol mg/dl Cholesterol/HDL Ratio Procalcitonin (0-0.5) ng/ml Nasal Screen MRSA (PCR) (Negative) COVID-19 Eval Order CovFluRsv at [facility] SARS-CoV-2 (PCR) NEGATIVE (Negative) Influenza Type A (PCR) Negative (Neg) Influenza Type B (PCR) Negative (Neg) RSV (RT-PCR) Negative (Neg) 12/13/20 12/13/20 Range/Units 12:00 12:00 WBC 13.57 H (4.8-10.8) K/uL RBC 4.27 (4.2-5.4) M/uL Hgb 13.3 (12.0-16.0) g/dL Hct 38.9 (37-47) % MCV 91.1 (80-100) fL MCH 31.1 (25-34) pg MCHC 34.2 (32-36) g/dL RDW Std Deviation 46.6 H (36.4-46.3) fL RDW Coeff of Alexey 14.1 (11.5-14.5) % Plt Count 214 (130-400) K/uL MPV 10.7 H (7.4-10.4) fL Immature Gran % (Auto) 0.7 % Neut % (Auto) 84.5 % Lymph % (Auto) 9.6 % Ritchie % (Auto) 4.7 % Eos % (Auto) 0.4 % Baso % (Auto) 0.1 % Neut # (Auto) 11.46 H (1.4-6.5) K/uL Lymph # (Auto) 1.30 (1.2-3.4) K/uL Ritchie # (Auto) 0.64 H (0.11-0.59) K/uL Eos # (Auto) 0.06 (0-0.5) K/uL Baso # (Auto) 0.01 (0-0.2) K/uL Immature Gran # (Auto) 0.10 H (0.00-0.02) K/uL PT 10.8 (9.0-12.0) Seconds INR 1.1 (0.9-1.1) APTT 24.4 (21.0-31.0) Seconds PTT Ratio 0.9 Sodium (136-145) mmol/L Potassium (3.5-5.1) mmol/L Chloride (98-107) mmol/L Carbon Dioxide (21-32) mmol/L Anion Gap (3-11) BUN (7-18) mg/dl Creatinine (0.6-1.2) mg/dl Est Cr Clr Drug Dosing ml/min Est GFR ( Amer) Est GFR (Non-Af Amer) BUN/Creatinine Ratio (10-20) Glucose (70-99) mg/dl POC Glucose (70-99) mg/dl Estimat Average Glucose mg/dl Hemoglobin A1c (4.5-5.6) % Calcium (8.5-10.1) mg/dl Magnesium (1.8-2.4) mg/dl Total Bilirubin (0.2-1) mg/dl AST (15-37) U/L ALT (12-78) U/L Alkaline Phosphatase (45-117) U/L Troponin I (0-0.045) ng/ml C-Reactive Protein (0-0.29) mg/dl Total Protein (6.4-8.2) gm/dl Albumin (3.4-5.0) gm/dl Globulin (2.5-4.0) gm/dl Albumin/Globulin Ratio (0.9-2) Triglycerides (0-150) mg/dl Cholesterol (0-200) mg/dl LDL Cholesterol, Calc mg/dl VLDL Cholesterol, Calc mg/dl HDL Cholesterol mg/dl Cholesterol/HDL Ratio Procalcitonin (0-0.5) ng/ml Nasal Screen MRSA (PCR) (Negative) COVID-19 Eval Order SARS-CoV-2 (PCR) (Negative) Influenza Type A (PCR) (Neg) Influenza Type B (PCR) (Neg) RSV (RT-PCR) (Neg) PG Care Time/CCT Total # of Minutes Spent Total Time Spent with Patient: Total time spent is greater than 50% in coordination of care (as documented) at patient's floor/unit and/or counseling patient: Coding Level of Care Code 49007 Subseq Hosp Care Lvl 3 Diagnoses Aspiration into airway T17.908S Encounter type: sequela Aspiration pneumonia J69.0 Aspiration pneumonia type: unspecified Laterality: bilateral Lung location: lower lobe of lung COPD (chronic obstructive pulmonary disease) J44.9 COPD type: unspecified COPD Sleep apnea G47.33 Sleep apnea type: obstructive Type 2 diabetes mellitus E11.9 Diabetes mellitus complication status: without complication Diabetes mellitus alf insulin use: without alf use CAD (coronary artery disease) I25.10 Associated angina: without angina Coronary Disease-Associated Artery/Lesion type: [place] artery [place] vs. transplanted heart: [place] heart Dyslipidemia E78.5 Irritable bowel syndrome with diarrhea K58.0 Elevated liver enzymes R74.8 Diverticulosis K57.90 (1) Sleep apnea Sleep apnea type: obstructive Qualified Code(s): G47.33 - Obstructive sleep apnea (adult) (pediatric) (2) Type 2 diabetes mellitus Diabetes mellitus complication status: without complication Diabetes mellitus lobsterman insulin use: without lobsterman use Qualified Code(s): E11.9 - Type 2 diabetes mellitus without complications (3) CAD (coronary artery disease) Associated angina: without angina Coronary Disease-Associated Artery/Lesion type: [place] artery [place] vs. transplanted heart: [place] heart Qualified Code(s): I25.10 - Atherosclerotic heart disease of [place] coronary artery with out angina pectoris (4) Aspiration into airway Encounter type: sequela Qualified Code(s): T17.908S - Unspecified foreign body in respiratory tract, part unspecified causing other injury, sequela (5) Aspiration pneumonia Aspiration pneumonia type: unspecified Laterality: bilateral Lung location: lower lobe of lung Qualified Code(s): J69.0 - Pneumonitis due to inhalation of food and vomit (6) COPD (chronic obstructive pulmonary disease) COPD type: unspecified COPD Qualified Code(s): J44.9 - Chronic obstructive pulmonary disease, unspecified
[2020-12-14] MEDS: METOPROLOL TARTRATE 25 MG TAB PO SCH ×2 (08:04→21:17)
[2020-12-14] MEDS: UMECLIDINIUM/VILANTEROL 62.5/25MCG 7 PUFFS/INHALER INH SCH (08:05)
[2020-12-14] MEDS: FLUTICASONE FUROATE 100MCG 14 PUFFS/INHALER INH SCH (08:06)
[2020-12-14] MEDS: FLUTICASONE PROPIONATE NA SPR 16 GM BTL SCH ×2 (08:06→21:17)
[2020-12-14] MEDS ORDERED: ASPIRIN 300 MG SUPP PR SCH (09:00)
[2020-12-14 09:04] LABS: Alanine Aminotransferase 94 U/L (12-78); Alkaline Phosphatase 107 U/L (45-117); Aspartate Aminotransferase 43 U/L (15-37); Bilirubin Direct < 0.1 mg/dl (0-0.2); Bilirubin,Total 0.7 mg/dl (0.2-1); Total Protein 6.2 gm/dl (6.4-8.2)
[2020-12-14] MEDS: ASPIRIN 81 MG ECTAB PO SCH (09:59)
[2020-12-14] MEDS ORDERED: LEVALBUTEROL HCL 0.63 MG/3 ML NEB NEB STA (11:09)
[2020-12-14] MEDS ORDERED: SODIUM CHLORIDE 0.9% 500 ML IV SCH (12:00)
[2020-12-14] MEDS: FAMOTIDINE 20 MG in SYRINGE 3 ML IV SCH (12:35)
[2020-12-14] MEDS: AZITHROMYCIN 250 MG in DEXTROSE 5% 250 ML IV SCH (14:51)
[2020-12-14] MEDS ORDERED: Nursing to Pharmacy Communication SCH (16:45)
[2020-12-14] MEDS: ENOXAPARIN INJ 30 MG/0.3 ML SYR SQ SCH (18:06)
[2020-12-14] MEDS ORDERED: ACETAMINOPHEN 325 MG TAB PO ONE (21:34)
[2020-12-15] MEDS: PIPERACILLIN/TAZOBACTAM 3.375 GM in DEXTROSE 5% 100 ML IV SCH ×3 (01:42→18:20)
[2020-12-15 06:07] LABS: Basophils # (auto) 0.03 K/uL (0-0.2); Basophils % (auto) 0.4 %; Eosinophils # (auto) 0.41 K/uL (0-0.5); Eosinophils % (auto) 5.3 %; Hematocrit (blood only) 37.3 % (37-47); Hemoglobin 12.2 g/dL (12.0-16.0); Immature Granulocytes # (auto) 0.11 K/uL (0.00-0.02); Immature Granulocytes % (auto) 1.4 %; Lymphocytes # (auto) 2.12 K/uL (1.2-3.4); Lymphocytes % (auto) 27.3 %; Mean Corpuscular Hgb Conc 32.7 g/dL (32-36); Mean Corpuscular Volume 91.9 fL (80-100); Mean Platelet Volume 10.6 fL (7.4-10.4); Monocytes # (auto) 0.63 K/uL (0.11-0.59); Monocytes % (auto) 8.1 %; Neutrophils # (auto) 4.46 K/uL (1.4-6.5); Neutrophils % (auto) 57.5 %; Platelet Count 176 K/uL (130-400); RDW Coefficient of Variation 13.6 % (11.5-14.5); RDW Standard Deviation 45.8 fL (36.4-46.3); Red Blood Count 4.06 M/uL (4.2-5.4); White Blood Count 7.76 K/uL (4.8-10.8)
[2020-12-15 06:35] LABS: BUN Creatinine Ratio 23.6 (10-20); Calcium 8.9 mg/dl (8.5-10.1); Creatinine Clr Calc Pharmacy 30.3 ml/min; Est GFR (African American) 53.7; Est GFR (Non-African American) 46.3; Magnesium 2.1 mg/dl (1.8-2.4); Potassium 3.9 mmol/L (3.5-5.1)
[2020-12-15 06:40] LABS: Albumin Globulin Ratio 0.9 (0.9-2); Bilirubin,Total 0.5 mg/dl (0.2-1); Globulin 3.3 gm/dl (2.5-4.0); Total Protein 6.3 gm/dl (6.4-8.2)
--- NOTE | 2020-12-15 09:03 | Hospitalist Progress Note ---
Date of Service December 15, 2020 Assessment & Plan (1) Aspiration into airway: Patient with what seems to be like an aspiration event with likely chronic aspiration and choking with big pills she reports. Hx tracheomalacia and recent prednisone for COPD/pna * Speech eval -- ordered diet, easy to chew, but plans for VIDEO SWALLOW WEDNESDAY MORNING * Continued on oral metoprolol BID and ASA 81mg daily -- these have been continued and no issues reported. Does well with applesauce * Head of bed was flat upon initial entry to room and was elevated with improvement per patient --> asked nursing to ensure HOB remains elevated to prevent further aspiration * Had been on liquid Augmentin as well as guaifenesin-codeine liquid for cough suppression [employer] without improvement * Continue Zosyn/Azithromycin IV (day 2 of therapy) for aspiration pneumonia (of note, patient does have hx cdiff and will need to monitor stool/BMs) * Giving atrovent neb x 1 now for tightness/wheezing and to help with secretions -- consider glycopyrrolate?? * --> She states improvement with the xopenex but has not asked for the Duoneb --> scheduled Xopenex today x 4 doses then consider prn tomorrow. * Procal 0.19, CRP 4.34 * WBC 13.5k --> currently 7.7k. Afebrile * Continue to monitor labs, electrolyte replacement as needed (2) Aspiration pneumonia: * Patient with hypoxia, productive cough, WBC 12, oxygen requirement * As patient is a [facility])will change antibiotics to Zosyn and Azithromycin for aspiration with co-morbids as above * Titrate O2 as tolerated -- currently 95% on 2L and asked nursing to wean as tolerated as she was up in restroom this morning without use of O2 * Speech consulted as above * Continue incentive spirometry, flutter valve. * Sputum cx if able to produce -- consider additional allergy medication given her history of ENT surgeries/post-nasal drip and on zyrtec daily. Follows locally with Benjie Shetty * Improving clinically and reported by patient * Continue to monitor - If no clinical improvement in oxygenation and symptoms CT scan of the chest. (3) COPD (chronic obstructive pulmonary disease): * COPD with asthma. Follows with Benjie Shetty * - appears to be tolerating her current inhaler regime- as normally her breathlessness is improved and activity has not been effected prior to her aspiration event. * - She was placed on prednisone last week for her cough and breathlessness, it was to stop today and was titrated down. Will discontinue. * - Continue inhalers -- added atovent neb x 1 today and utilizing prn for wheezing/sob * Reported SOB lying flat, however could be from some aspiration. No JVD/edema * ECHO PENDING. BNP only 59 so do not expect any CHF * Oxygen for SPO2 90% -- maintained currently on 2L but had been up without it and remains 95% on 2L in system however asked nursing to wean as tolerated * Continue to monitor (4) Sleep apnea: * DEEPALI autopap with mean ~10. * CPAP 10cm H2O at night (5) Type 2 diabetes mellitus: * Glycemic consult until diet and liquid intake is determined * Goal <180 * On empagliflozin 10mg daily [employer] * Monitor BSGs (6) CAD (coronary artery disease): * with HTN/HLD * No acute needs, BMS to RCA. Follows with Dr. Lebron * From most recent note: * "Cardiac catheterization 2007 with mild atherosclerotic disease of LAD, small caliber mid and distal LAD, severe proximal stenosis of left circumflex marginal, severe distal RCA stenosis, and 50% right posterior or lateral stenosis. 3.5 x 8 mm bare-metal stent distal RCA. 2 bare-metal stents left circumflex marginal. 2.75 x 12 mm and 2.75 x 8 mm bare metal stents. 30% ostial left circumflex, 20% mid left circumflex, 30-40% proximal RCA stenoses also noted. LV ejection fraction normal. Normal left ventricular wall motion." * To have follow up with Dr. Lebron routine scheduled next week * Continued ASA 81mg daily and metoprolol 12.5mg BID * Holding losartan, atorvastatin (lipid panel with elevated triglycerides 287 and 194 on prior draw -- may need additional agent at d/c) --> resuming losartan today as kidney function remains stable and BP elevated 169/82 * --> consider switching to alternative agent if losartan causes increased cough although suspect since ARB less likely than ANNE * NO chest pain reported * ECHO completed but not read yet, -- consult cardio if needed. * --> Will need f/u appt with Dr. Lebron as appt tomorrow cancelled already (7) Dyslipidemia: * Statin on hold until eval by speech -- on atorvastatin 10mg daily [employer] * Lipid panel -- triglycerides elevated 287 from 194 prior -- will need to address prior to d/c * Cholesterol 129, LDL 36 HDL 36 * Consider zetia, gemfibrozil at d/c? vs d/c omega 3 (8) Irritable bowel syndrome with diarrhea: * Patient was recently trialed on Viberzi for her debilitating IBS diarrhea predominant * LFTs were starting to increase after initiation- placed on hold by PCP * Continue to hold --> LFTs improving * Will add cdiff given history and monitor while on abx * also hold statin (9) Elevated liver enzymes: * Continue to monitor * consider imaging of liver if not improving (10) LBBB (left bundle branch block): new LBBB as per ECG ECHO normal BNP normal has close f/u scheduled with Cardiology, no ischemic symptoms (11) Diverticulosis: * No acute needs * Miralax when able to take PO safely -- has had BM today Reflux * on omeprazole [employer] * placing on Pepcid IV daily for now Depression * Resumed Effexor to prevent withdrawal as she had tolerated her ASA and metoprolol. will keep others on hold still though Dispo: continued inpatient stay consider PT/OT prior to discharge VIDEO swallow tomorrow morning Admission and Anticipated Discharge Date Admission Date: December 13, 2020 Supervising Physician Co-Signing Physician Notes ISABELLA Supervision Note: I did not personally see or examine the patient today, but I verified all sanchez points of ISABELLA Molina's assessment and plan with the following exceptions/additions: None Subjective Patient evaluated this morning. States she is feeling much better. Took smaller pills without issue this morning. Discussed swallow study in AM tomorrow. Still with cough, not able to produce sputum. [place] improvement with the xopenex last night and we will schedule this for t aleida and then change to prn tomorow. Up in bathroom moving her bowels currently, not requiring oxygen. Discussed weaning down on oxygen to prevent respiratory depression. No fever, chills, chest pain, abdominal pain, nausea, vomtiing or dysuria. Did get dose of tylenol to take the edge off being in the hospital and will order as needed. Updated daughter Marylu on phone today -- traveling back to home and wanted to visit. Transferred to clinical coordinator to see if this is possible. Review of Systems Review of Systems: All systems reviewed & are unremarkable except as noted in HPI & below Physical Exam Physical Exam: General: awake, alert, no apparent distress, up in bathroom without her oxygen on using the restroom. Cough noted, wet. Head: Normocephalic, atraumatic ENT: PERRLA, EOMI, mmm, boggy nasal turbinates Chest: equal rise and fall of the chest, no accessory muscle use, no heaves or thrills, + expiratory wheeze, frequent productive cough with demised bases bilaterally on auscultation, NOT ON OXYGEN IN BATHROOM AND REPORTS BREATHING MUCH BETTER Cardiac: RRR, cap refill <3 seconds, peripheral pulses +2 no JVD, no murmur, no JVD, no edema and calves non-tender to palpation bilaterally GI: NABS x 4 quadrants, soft, nontender to palpation, no rebound, guarding or tenderness : Spontaneously voiding, no pain, no CVA tenderness Extremities: Normal inspection, no peripheral edema or erythema, calfs nontender to palpation Psych: AOx3, euthymic effect Neuro: AAO x 3, speech clear and appropriate, strength intact bilaterally 5/5, sensation intact and equal all extremities and dermatomes, no pronator drift Skin: no rash or erythema Results & Data Results & Data ([facility]) Vital Signs (Past 12 Hours) Vital Signs Temp Pulse Pulse Resp BP BP BP 12/15/20 07:50 36.5 C 73 18 169/82 H 12/14/20 22:10 37.1 C 80 15 137/75 12/14/20 21:13 81 15 117/74 Pulse Ox 12/15/20 07:50 96 12/14/20 22:10 93 12/14/20 21:13 93 Laboratory Results 12/15/20 12/15/20 12/15/20 Range/Units 08:15 05:29 05:29 WBC 7.76 (4.8-10.8) K/uL RBC 4.06 L (4.2-5.4) M/uL Hgb 12.2 (12.0-16.0) g/dL Hct 37.3 (37-47) % MCV 91.9 (80-100) fL MCH 30.0 (25-34) pg MCHC 32.7 (32-36) g/dL RDW Std Deviation 45.8 (36.4-46.3) fL RDW Coeff of Alexey 13.6 (11.5-14.5) % Plt Count 176 (130-400) K/uL MPV 10.6 H (7.4-10.4) fL Immature Gran % (Auto) 1.4 % Neut % (Auto) 57.5 % Lymph % (Auto) 27.3 % [place] % (Auto) 8.1 % Eos % (Auto) 5.3 % Baso % (Auto) 0.4 % Neut # (Auto) 4.46 (1.4-6.5) K/uL Lymph # (Auto) 2.12 (1.2-3.4) K/uL [place] # (Auto) 0.63 H (0.11-0.59) K/uL Eos # (Auto) 0.41 (0-0.5) K/uL Baso # (Auto) 0.03 (0-0.2) K/uL Immature Gran # (Auto) 0.11 H (0.00-0.02) K/uL Sodium 138 (136-145) mmol/L Potassium 3.9 (3.5-5.1) mmol/L Chloride 106 (98-107) mmol/L Carbon Dioxide 25 (21-32) mmol/L Anion Gap 7.0 (3-11) BUN 25 H (7-18) mg/dl Creatinine 1.07 (0.6-1.2) mg/dl Est Cr Clr Drug Dosing 30.3 ml/min Est GFR ( Amer) 53.7 Est GFR (Non-Af Amer) 46.3 BUN/Creatinine Ratio 23.6 H (10-20) Glucose 127 H (70-99) mg/dl POC Glucose 137 H (70-99) mg/dl Calcium 8.9 (8.5-10.1) mg/dl Magnesium 2.1 (1.8-2.4) mg/dl Total Bilirubin 0.5 (0.2-1) mg/dl Direct Bilirubin (0-0.2) mg/dl AST 77 H (15-37) U/L ALT 111 H (12-78) U/L Alkaline Phosphatase 108 (45-117) U/L NT-Pro-B Natriuret Pep 59 (0-1800) pg/ml Total Protein 6.3 L (6.4-8.2) gm/dl Albumin 3.0 L (3.4-5.0) gm/dl Globulin 3.3 (2.5-4.0) gm/dl Albumin/Globulin Ratio 0.9 (0.9-2) 12/14/20 12/14/20 12/14/20 Range/Units 20:50 17:14 12:07 WBC (4.8-10.8) K/uL RBC (4.2-5.4) M/uL Hgb (12.0-16.0) g/dL Hct (37-47) % MCV (80-100) fL MCH (25-34) pg MCHC (32-36) g/dL RDW Std Deviation (36.4-46.3) fL RDW Coeff of Alexey (11.5-14.5) % Plt Count (130-400) K/uL MPV (7.4-10.4) fL Immature Gran % (Auto) % Neut % (Auto) % Lymph % (Auto) % [place] % (Auto) % Eos % (Auto) % Baso % (Auto) % Neut # (Auto) (1.4-6.5) K/uL Lymph # (Auto) (1.2-3.4) K/uL [place] # (Auto) (0.11-0.59) K/uL Eos # (Auto) (0-0.5) K/uL Baso # (Auto) (0-0.2) K/uL Immature Gran # (Auto) (0.00-0.02) K/uL Sodium (136-145) mmol/L Potassium (3.5-5.1) mmol/L Chloride (98-107) mmol/L Carbon Dioxide (21-32) mmol/L Anion Gap (3-11) BUN (7-18) mg/dl Creatinine (0.6-1.2) mg/dl Est Cr Clr Drug Dosing ml/min Est GFR ( Amer) Est GFR (Non-Af Amer) BUN/Creatinine Ratio (10-20) Glucose (70-99) mg/dl POC Glucose 130 H 151 H 159 H (70-99) mg/dl Calcium (8.5-10.1) mg/dl Magnesium (1.8-2.4) mg/dl Total Bilirubin (0.2-1) mg/dl Direct Bilirubin (0-0.2) mg/dl AST (15-37) U/L ALT (12-78) U/L Alkaline Phosphatase (45-117) U/L NT-Pro-B Natriuret Pep (0-1800) pg/ml Total Protein (6.4-8.2) gm/dl Albumin (3.4-5.0) gm/dl Globulin (2.5-4.0) gm/dl Albumin/Globulin Ratio (0.9-2) 12/14/20 Range/Units 05:33 WBC (4.8-10.8) K/uL RBC (4.2-5.4) M/uL Hgb (12.0-16.0) g/dL Hct (37-47) % MCV (80-100) fL MCH (25-34) pg MCHC (32-36) g/dL RDW Std Deviation (36.4-46.3) fL RDW Coeff of Alexey (11.5-14.5) % Plt Count (130-400) K/uL MPV (7.4-10.4) fL Immature Gran % (Auto) % Neut % (Auto) % Lymph % (Auto) % [place] % (Auto) % Eos % (Auto) % Baso % (Auto) % Neut # (Auto) (1.4-6.5) K/uL Lymph # (Auto) (1.2-3.4) K/uL [place] # (Auto) (0.11-0.59) K/uL Eos # (Auto) (0-0.5) K/uL Baso # (Auto) (0-0.2) K/uL Immature Gran # (Auto) (0.00-0.02) K/uL Sodium (136-145) mmol/L Potassium (3.5-5.1) mmol/L Chloride (98-107) mmol/L Carbon Dioxide (21-32) mmol/L Anion Gap (3-11) BUN (7-18) mg/dl Creatinine (0.6-1.2) mg/dl Est Cr Clr Drug Dosing ml/min Est GFR ( Amer) Est GFR (Non-Af Amer) BUN/Creatinine Ratio (10-20) Glucose (70-99) mg/dl POC Glucose (70-99) mg/dl Calcium (8.5-10.1) mg/dl Magnesium (1.8-2.4) mg/dl Total Bilirubin 0.7 (0.2-1) mg/dl Direct Bilirubin < 0.1 (0-0.2) mg/dl AST 43 H (15-37) U/L ALT 94 H (12-78) U/L Alkaline Phosphatase 107 (45-117) U/L NT-Pro-B Natriuret Pep (0-1800) pg/ml Total Protein 6.2 L (6.4-8.2) gm/dl Albumin 3.0 L (3.4-5.0) gm/dl Globulin (2.5-4.0) gm/dl Albumin/Globulin Ratio (0.9-2) PG Care Time/CCT Total # of Minutes Spent Total Time Spent with Patient: Total time spent is greater than 50% in coordination of care (as documented) at patient's floor/unit and/or counseling patient: Coding Level of Care Code 04861 Subseq Hosp Care Lvl 3 Diagnoses Aspiration into airway T17.908S Encounter type: sequela Aspiration pneumonia J69.0 Aspiration pneumonia type: unspecified Laterality: bilateral Lung location: lower lobe of lung COPD (chronic obstructive pulmonary disease) J44.9 COPD type: unspecified COPD Sleep apnea G47.33 Sleep apnea type: obstructive Type 2 diabetes mellitus E11.9 Diabetes mellitus complication status: without complication Diabetes mellitus technician terminal and repeater insulin use: without intermediate use CAD (coronary artery disease) I25.10 Associated angina: without angina Coronary Disease-Associated Artery/Lesion type: stebbins artery [place] vs. transplanted heart: stebbins heart Dyslipidemia E78.5 Irritable bowel syndrome with diarrhea K58.0 Elevated liver enzymes R74.8 LBBB (left bundle branch block) I44.7 Diverticulosis K57.90 (1) Sleep apnea Sleep apnea type: obstructive Qualified Code(s): G47.33 - Obstructive sleep apnea (adult) (pediatric) (2) Type 2 diabetes mellitus Diabetes mellitus complication status: without complication Diabetes mellitus technician terminal and repeater insulin use: without technician terminal and repeater use Qualified Code(s): E11.9 - Type 2 diabetes mellitus without complications (3) CAD (coronary artery disease) Associated angina: without angina Coronary Disease-Associated Artery/Lesion type: stebbins artery [place] vs. transplanted heart: stebbins heart Qualified Code(s): I25.10 - Atherosclerotic heart disease of stebbins coronary artery without angina pectoris (4) Aspiration into airway Encounter type: sequela Qualified Code(s): T17.908S - Unspecified foreign body in respiratory tract, part unspecified causing other injury, sequela (5) Aspiration pneumonia Aspiration pneumonia type: unspecified Laterality: bilateral Lung location: lower lobe of lung Qualified Code(s): J69.0 - Pneumonitis due to inhalation of food and vomit (6) COPD (chronic obstructive pulmonary disease) COPD type: unspecified COPD Qualified Code(s): J44.9 - Chronic obstructive pulmonary disease, unspecified
[2020-12-15] MEDS: FLUTICASONE PROPIONATE NA SPR 16 GM BTL SCH ×2 (09:29→21:42)
[2020-12-15] MEDS: FLUTICASONE FUROATE 100MCG 14 PUFFS/INHALER INH SCH (09:30)
[2020-12-15] MEDS: UMECLIDINIUM/VILANTEROL 62.5/25MCG 7 PUFFS/INHALER INH SCH (09:30)
--- NOTE | 2020-12-15 09:30 | Pharmacy Report ---
Pharmacy Glycemic Sign Off Nt - Date of Service December 15, 2020 - Assessment & Plan ASSESSMENT: * Pharmacy was consulted by Mark DAVIDSON on 12/13/20 for glycemic control and to write orders per [facility] inpatient glycemic control protocol. * Major changes made by pharmacy to antidiabetic regimen include: * Holding Jardiance (outpatient med) and initiating weight based bolus insulin with NovoLog monotherapy * Patient has been receiving/requiring 1 units of insulin per day for adequate glycemic control * BSGs ranging 130-159 mg/dl * Regimen has only required minor adjustments over the past 48hrs to achieve this level of control * Do not anticipate further changes in patient status that would quickly deteriorate glycemic control (i.e. patient to be NPO for upcoming procedure, steroids tapering, starting tube feedings, etc). * Please see recommendations for outpatient antidiabetic regimen below. PLAN FOR INPATIENT GLYCEMIC CONTROL: No changes needed to current regimen. * No basal insulin needed * Continue NovoLog per scale ACHS/Q6hrs while NPO * Goal range = 110-140 mg/dl * CF = 30 mg/dl/unit * CR = 1 unit for ever 15 g CHO consumed * Pharmacy is signing off of glycemic consult and will no longer be making adjustments to inpatient regimen. Please feel free to re-consult if needed. Thank you. DISCHARGE RECOMMENDATIONS: * A1c 6.9 % on 11/14/20 * Goal A1c <7-8% based on age/co-morbidities. * No changes needed to outpatient regimen.
[2020-12-15] MEDS: ASPIRIN 81 MG ECTAB PO SCH (09:31)
[2020-12-15] MEDS: METOPROLOL TARTRATE 25 MG TAB PO SCH ×2 (09:31→21:41)
[2020-12-15] MEDS: INSULIN ASPART 100 UNITS/ML 3 ML PEN SC SCH ×4 (09:32→21:42)
[2020-12-15] MEDS: FAMOTIDINE 20 MG in SYRINGE 3 ML IV SCH (09:42)
[2020-12-15 10:18] LABS: Hepatitis B Surf Ag Rflx Conf Neg (Neg)
[2020-12-15 10:46] LABS: Hepatitis C IgG 13Yrs+Old_Rflx Neg (Neg)
[2020-12-15] MEDS: LEVALBUTEROL HCL 0.63 MG/3 ML NEB NEB SCH ×2 (12:44→19:42)
--- NOTE | 2020-12-15 14:45 | XCELERA ---
[id number]
[2020-12-15] MEDS: AZITHROMYCIN 250 MG in DEXTROSE 5% 250 ML IV SCH (14:53)
[2020-12-15] MEDS: LOSARTAN POTASSIUM 50 MG TAB PO SCH (16:11)
[2020-12-15] MEDS: ENOXAPARIN INJ 30 MG/0.3 ML SYR SQ SCH (18:19)
[2020-12-15] MEDS: ACETAMINOPHEN 325 MG TAB PO PRN (21:24)
[2020-12-16] MEDS: LEVALBUTEROL HCL 0.63 MG/3 ML NEB NEB SCH ×2 (01:11→07:13)
[2020-12-16] MEDS: PIPERACILLIN/TAZOBACTAM 3.375 GM in DEXTROSE 5% 100 ML IV SCH ×3 (01:45→18:11)
[2020-12-16 06:11] LABS: Basophils # (auto) 0.05 K/uL (0-0.2); Basophils % (auto) 0.7 %; Eosinophils # (auto) 0.42 K/uL (0-0.5); Eosinophils % (auto) 5.6 %; Hematocrit (blood only) 37.3 % (37-47); Hemoglobin 12.7 g/dL (12.0-16.0); Immature Granulocytes # (auto) 0.08 K/uL (0.00-0.02); Immature Granulocytes % (auto) 1.1 %; Lymphocytes # (auto) 1.93 K/uL (1.2-3.4); Lymphocytes % (auto) 25.5 %; Mean Corpuscular Hemoglobin 31.1 pg (25-34); Mean Corpuscular Volume 91.2 fL (80-100); Mean Platelet Volume 10.6 fL (7.4-10.4); Monocytes % (auto) 9.3 %; Neutrophils # (auto) 4.38 K/uL (1.4-6.5); Neutrophils % (auto) 57.8 %; Platelet Count 199 K/uL (130-400); RDW Coefficient of Variation 13.5 % (11.5-14.5); RDW Standard Deviation 45.2 fL (36.4-46.3); Red Blood Count 4.09 M/uL (4.2-5.4); White Blood Count 7.56 K/uL (4.8-10.8)
[2020-12-16 06:40] LABS: Albumin Level 3.2 gm/dl (3.4-5.0); BUN Creatinine Ratio 19.3 (10-20); Calcium 9.3 mg/dl (8.5-10.1); Creatinine Clr Calc Pharmacy 23.7 ml/min; Est GFR (African American) 39.8; Est GFR (Non-African American) 34.4; Magnesium 2.2 mg/dl (1.8-2.4); Potassium 3.8 mmol/L (3.5-5.1)
[2020-12-16 06:43] LABS: Albumin Globulin Ratio 0.9 (0.9-2); Bilirubin,Total 0.5 mg/dl (0.2-1); Globulin 3.5 gm/dl (2.5-4.0); Total Protein 6.7 gm/dl (6.4-8.2)
[2020-12-16] MEDS: FLUTICASONE FUROATE 100MCG 14 PUFFS/INHALER INH SCH (08:17)
[2020-12-16] MEDS: ASPIRIN 81 MG ECTAB PO SCH (08:18)
[2020-12-16] MEDS: UMECLIDINIUM/VILANTEROL 62.5/25MCG 7 PUFFS/INHALER INH SCH (08:18)
[2020-12-16] MEDS: VENLAFAXINE HCL XR 75 MG CAPXR PO SCH (08:18)
[2020-12-16] MEDS: LOSARTAN POTASSIUM 50 MG TAB PO SCH (08:18)
[2020-12-16] MEDS: METOPROLOL TARTRATE 25 MG TAB PO SCH ×2 (08:19→20:44)
[2020-12-16] MEDS: FLUTICASONE PROPIONATE NA SPR 16 GM BTL SCH ×2 (08:19→20:44)
[2020-12-16] MEDS: INSULIN ASPART 100 UNITS/ML 3 ML PEN SC SCH ×4 (09:00→20:43)
[2020-12-16] MEDS: FAMOTIDINE 20 MG in SYRINGE 3 ML IV SCH (10:11)
--- NOTE | 2020-12-16 13:53 | Hospitalist Progress Note ---
Date of Service December 16, 2020 Assessment & Plan (1) Aspiration into airway: Patient with what seems to be like an aspiration event with likely chronic aspiration and choking with big pills she reports. Hx tracheomalacia and recent prednisone for COPD/pna * Speech eval -- ordered diet, easy to chew, video swallow on Saturday 12/16 did not show any aspiration of thin liquids * Had been on liquid Augmentin as well as guaifenesin-codeine liquid for cough suppression [employer] without improvement * Continue Zosyn/Azithromycin IV (day 3 of therapy), WBC normal, no fever, breathing well will get CT chest tomorrow per request of outpatient provider Benjie Shetty, Pulmonary overall she is doing well, breathing room air, ambulating independently in the room (2) Aspiration pneumonia: * Patient with hypoxia, productive cough, WBC was 12k, down to normal now, breathing room air * continue Zosyn and Azithromycin, day 3 * Titrate O2 as tolerated -- down to room air today, no distress * Speech consulted as above, video swallow today did NOT show aspiration of thin liquid * Continue incentive spirometry, flutter valve. (3) COPD (chronic obstructive pulmonary disease): * COPD with asthma. Follows with Benjie Shetty * - appears to be tolerating her current inhaler regime- as normally her breathlessness is improved and activity has not been effected prior to her aspiration event. * - She was placed on prednisone last week for her cough and breathlessness, stop Prednisone, no wheezing or distress * - Continue inhalers -- added atovent neb x 1 today and utilizing prn for wheezing/sob (4) Sleep apnea: * DEEPALI autopap with mean ~10. * CPAP 10cm H2O at night (5) Type 2 diabetes mellitus: * Glycemic consult until diet and liquid intake is determined * Goal <180 * On empagliflozin 10mg daily [employer] * Monitor BSGs, stable, no hypoglycemia (6) CAD (coronary artery disease): * with HTN/HLD * No acute needs, BMS to RCA. Follows with Dr. Lebron * From most recent note: * "Cardiac catheterization 2007 with mild atherosclerotic disease of LAD, small caliber mid and distal LAD, severe proximal stenosis of left circumflex marginal, severe distal RCA stenosis, and 50% right posterior or lateral stenosis. 3.5 x 8 mm bare-metal stent distal RCA. 2 bare-metal stents left circumflex marginal. 2.75 x 12 mm and 2.75 x 8 mm bare metal stents. 30% ostial left circumflex, 20% mid left circumflex, 30-40% proximal RCA stenoses also noted. LV ejection fraction normal. Normal left ventricular wall motion." * To have follow up with Dr. Lebron routine scheduled next week * Continued ASA 81mg daily and metoprolol 12.5mg BID * Holding losartan, atorvastatin (lipid panel with elevated triglycerides 287 and 194 on prior draw -- may need additional agent at d/c) --> resuming losartan today as kidney function remains stable and BP elevated 169/82 * --> consider switching to alternative agent if losartan causes increased cough although suspect since ARB less likely than ANNE * NO chest pain reported * ECHO completed but not read yet, -- consult cardio if needed. * --> Will need f/u appt with Dr. Lebron (7) Dyslipidemia: * Statin on hold until eval by speech -- on atorvastatin 10mg daily [employer] * Lipid panel -- triglycerides elevated 287 from 194 prior -- will need to address prior to d/c * Cholesterol 129, LDL 36 HDL 36 * Consider zetia, gemfibrozil at d/c? vs d/c omega 3 (8) Irritable bowel syndrome with diarrhea: * Patient was recently trialed on Viberzi for her debilitating IBS diarrhea predominant * LFTs were starting to increase after initiation- placed on hold by PCP * Continue to hold --> LFTs improving * Will add cdiff given history and monitor while on abx - C diff negative * also hold statin (9) Elevated liver enzymes: * Continue to monitor * consider imaging of liver if not improving (10) LBBB (left bundle branch block): new LBBB as per ECG ECHO normal BNP normal has close f/u scheduled with Cardiology, no ischemic symptoms (11) Diverticulosis: * No acute needs * Miralax when able to take PO safely -- has had BM today Reflux * on omeprazole [employer] * placing on Pepcid IV daily for now Depression * Resumed Effexor to prevent withdrawal as she had tolerated her ASA and metoprolol. will keep others on hold still though Dispo: plan to return to [facility] tomorrow Admission and Anticipated Discharge Date Admission Date: December 13, 2020 Subjective patient feeling better, down to room air she is ambulating around the room eating well, had a video swallow, no aspiration on video swallow on thin liquids she is hoping to return to [facility] tomorrow reviewed chart, reviewed labs she has a cough that is triggered by ambulation, it is a cough due to tracheomalasia no fever/chills, no chest pain, no nausea, no diarrhea Review of Systems Review of Systems: All systems reviewed & are unremarkable except as noted in Subjective Constitutional: no fever, no chills, no sweats, no fatigue and no weakness Respiratory: + cough; no dyspnea, no dyspnea on exertion and no sputum production Cardiovascular: no chest pain, no palpitations, no syncope and no edema Gastrointestinal: no abdominal pain, no nausea, no vomiting, no constipation and no diarrhea/loose stools Physical Exam Constitutional: WD/WN, vitals as above Neck: trachea midline, no thyromegaly Respiratory: normal respiratory effort, lungs clear to auscultation Auscultation: no wheezes Cardiovascular: RRR, no murmur, no edema Gastrointestinal (Abdomen): normal bowel sounds, soft, nontender, no hepatosplenomegaly Musculoskeletal: no cyanosis or clubbing, extremities motor strength 5/5 Skin: no rashes, warm and dry Neurologic: patellar DTR's 2+ bilat, sensation intact and PERRL, EOMI, accommodation nl, no face palsy, no dysarthria Psychiatric: A+Ox3, euthymic affect Lymphatic: no cervical or axillary lymphadenopathy Results & Data Results & Data ([facility]) Vital Signs (Past 12 Hours) Vital Signs Temp Pulse Resp BP Pulse Ox 12/16/20 12:57 90 12/16/20 10:21 96 12/16/20 07:13 80 16 94 12/16/20 06:58 36.6 C 83 18 158/80 H 95 Laboratory Results Laboratory Results - last 24 hr 12/15/20 12/15/20 12/16/20 17:17 20:47 05:55 WBC 7.56 RBC 4.09 L Hgb 12.7 Hct 37.3 MCV 91.2 MCH 31.1 MCHC 34.0 RDW Std Deviation 45.2 RDW Coeff of Alexey 13.5 Plt Count 199 MPV 10.6 H Immature Gran % (Auto) 1.1 Neut % (Auto) 57.8 Lymph % (Auto) 25.5 [place] % (Auto) 9.3 Eos % (Auto) 5.6 Baso % (Auto) 0.7 Neut # (Auto) 4.38 Lymph # (Auto) 1.93 [place] # (Auto) 0.70 H Eos # (Auto) 0.42 Baso # (Auto) 0.05 Immature Gran # (Auto) 0.08 H Sodium Potassium Chloride Carbon Dioxide Anion Gap BUN Creatinine Est Cr Clr Drug Dosing Est GFR ( Amer) Est GFR (Non-Af Amer) BUN/Creatinine Ratio Glucose POC Glucose 139 H 158 H Calcium Magnesium Total Bilirubin AST ALT Alkaline Phosphatase Total Protein Albumin Globulin Albumin/Globulin Ratio 12/16/20 12/16/20 12/16/20 05:55 07:58 12:04 WBC RBC Hgb Hct MCV MCH MCHC RDW Std Deviation RDW Coeff of Alexey Plt Count MPV Immature Gran % (Auto) Neut % (Auto) Lymph % (Auto) [place] % (Auto) Eos % (Auto) Baso % (Auto) Neut # (Auto) Lymph # (Auto) [place] # (Auto) Eos # (Auto) Baso # (Auto) Immature Gran # (Auto) Sodium 138 Potassium 3.8 Chloride 106 Carbon Dioxide 24 Anion Gap 8.0 BUN 26 H Creatinine 1.37 H D Est Cr Clr Drug Dosing 23.7 Est GFR ( Amer) 39.8 Est GFR (Non-Af Amer) 34.4 BUN/Creatinine Ratio 19.3 Glucose 160 H POC Glucose 151 H 150 H Calcium 9.3 Magnesium 2.2 Total Bilirubin 0.5 AST 52 H ALT 97 H Alkaline Phosphatase 104 Total Protein 6.7 Albumin 3.2 L Globulin 3.5 Albumin/Globulin Ratio 0.9 Medications Administered Current Inpatient Medications Acetaminophen (Acetaminophen 325 Mg Tab) 650 mg PO Q4H PRN PRN Reason: headache or fever Stop: 01/14/21 11:05 Last Admin: 12/15/20 21:24 Dose: 650 mg Documented by: Albuterol (Albuterol Hfa 8 Gm Inhaler) 2 puffs INH Q4H PRN PRN Reason: Shortness Of Breath Or Wheezin Stop: 01/12/21 16:54 Albuterol (Albut/Ipratrop 3mg/0.5mg Neb 3 Ml Vial) 3 ml INH Q3H PRN PRN Reason: Shortness Of Breath Or Wheezin Stop: 01/12/21 16:54 Artificial Tears (Artificial Tears) 1 drops OP QS PRN PRN Reason: Dry Eye(S) Stop: 01/12/21 17:27 Aspirin (Aspirin 81 Mg Ectab) 81 mg PO QAM DIALLO Stop: 01/13/21 08:59 Last Admin: 12/16/20 08:18 Dose: 81 mg Documented by: Dextrose (Dextrose 50% 50 Ml Syringe) 25 - 50 ml IV UD PRN; Protocol PRN Reason: Hypoglycemia Protocol Stop: 01/12/21 16:54 Diclofenac Sodium (Diclofenac Sod 1% Gel 100 Gm Tube) 2 gm EXT QID PRN PRN Reason: Pain Stop: 01/12/21 16:54 Enoxaparin Sodium (Enoxaparin Inj 30 Mg/0.3 Ml Syr) 30 mg SQ Q24H DIALLO Stop: 01/12/21 17:59 Last Admin: 12/15/20 18:19 Dose: 30 mg Documented by: Fluticasone Furoate (Fluticasone Furoate 100mcg 14 Puffs/Inhaler) 1 puffs INH QAM DIALLO; Protocol Stop: 01/13/21 08:59 Last Admin: 12/16/20 08:17 Dose: 1 puffs Documented by: Fluticasone Propionate (Fluticasone Propionate Na Spr 16 Gm Btl) 2 sprays NA BID DIALLO Stop: 01/12/21 20:59 Last Admin: 12/16/20 08:19 Dose: 2 sprays Documented by: Glucagon (Glucagon For Inj 1 Mg Vial) 1 mg SQ UD PRN; Protocol PRN Reason: Hypoglycemia Protocol Stop: 01/12/21 16:54 Glucose (Glucose 10 Tabs/Tube) 4 - 8 tabs PO UD PRN; Protocol PRN Reason: Hypoglycemia Protocol Stop: 01/12/21 16:54 Glucose (Glucose 40% Gel 15 Gm Tube) 15 - 30 gm PO UD PRN; Protocol PRN Reason: Hypoglycemia Protocol Stop: 01/12/21 16:54 Guaifenesin/Codeine Phosphate (Guaifenesin/Codeine 200mg/20mg 10ml Udc) 5 ml PO Q6H PRN PRN Reason: cough Stop: 01/12/21 16:54 Azithromycin 250 mg/ Dextrose 252.5 mls @ 125 mls/hr IV Q24H DIALLO; Protocol Stop: 12/20/20 13:59 Last Infusion: 12/15/20 17:42 Dose: Infused Documented by: Piperacillin Sod/Tazobactam (Sod 3.375 gm/ Dextrose) 115 mls @ 28.75 mls/hr IV Q8H [facility]; Protocol Stop: 12/20/20 17:59 Last Admin: 12/16/20 10:10 Dose: 28.8 mls/hr Documented by: Famotidine 20 mg/ Syringe 5 mls @ 2.5 mls/min IV [facility] Stop: 01/13/21 12:14 Last Admin: 12/16/20 10:11 Dose: 2.5 mls/min Documented by: Insulin Aspart (Insulin Aspart 100 Units/Ml 3 Ml Pen) 0 units SC ACHS [facility] Stop: 01/13/21 20:59 Last Admin: 12/16/20 12:53 Dose: 3 units Documented by: Losartan Potassium (Losartan Potassium 50 Mg Tab) [facility] Stop: 01/14/21 15:14 Last Admin: 12/16/20 08:18 Dose: 100 mg Documented by: Metoprolol Tartrate (Metoprolol Tartrate 25 Mg Tab) 12.5 mg PO BID [facility] Stop: 01/12/21 20:59 Last Admin: 12/16/20 08:19 Dose: 12.5 mg Documented by: Miscellaneous (*Azelastine Nasal [place]*Order Awaiting Action) 1 ea N/A QS [facility] Stop: 01/13/21 07:59 Last Admin: 12/16/20 08:26 Dose: Not Given Documented by: Miscellaneous (*Clobetasol 0.025 %*Order Awaiting Action) 1 ea N/A [facility] Stop: 01/13/21 07:59 Last Admin: 12/16/20 08:26 Dose: Not Given Documented by: Miscellaneous (Carbohydrates For Hypoglycemia ) 15 - 30 gm PO UD PRN PRN Reason: Hypoglycemia Protocol Stop: 01/12/21 16:54 Miscellaneous (*Ketotifen[[place]] 0.025 %*Order Awaiting Action) 1 ea N/A QS [facility] Stop: 01/13/21 07:59 Last Admin: 12/16/20 08:27 Dose: Not Given Documented by: Miscellaneous Information (Piperacill/Tazobac Consult Active) 1 ea N/A UD PRN PRN Reason: Consult: Aspiration pneumonia Stop: 01/12/21 16:54 Nitroglycerin (Nitroglycerin Sl 0.4 Mg/Tab Tab) 0.4 mg SL UD PRN PRN Reason: Chest Pain Stop: 01/12/21 16:54 Oxymetazoline HCl (Oxymetazoline 0.05% 30 Ml Btl) 2 sprays NA Q12H PRN PRN Reason: Allergy Symptoms Stop: 01/12/21 16:54 Umeclidinium/Vilanterol (Umeclidinium/Vilanterol 62.5/25mcg 7 Puffs/Inhaler) 1 puffs INH QAM DIALLO; Protocol Stop: 01/13/21 08:59 Last Admin: 12/16/20 08:18 Dose: 1 puffs Documented by: Venlafaxine HCl (Venlafaxine Hcl Xr 75 Mg Capxr) 75 mg PO QAM DIALLO Stop: 01/15/21 08:59 Last Admin: 12/16/20 08:18 Dose: 75 mg Documented by: PG Care Time/CCT Total # of Minutes Spent Total Time Spent with Patient: Total time spent is greater than 50% in co ordination of care (as documented) at patient's floor/unit and/or counseling patient: Coding Level of Care Code 14926 Subseq Hosp Care Lvl 3 Diagnoses Aspiration into airway T17.908S Encounter type: sequela Aspiration pneumonia J69.0 Aspiration pneumonia type: unspecified Laterality: bilateral Lung location: lower lobe of lung COPD (chronic obstructive pulmonary disease) J44.9 COPD type: unspecified COPD Sleep apnea G47.33 Sleep apnea type: obstructive Type 2 diabetes mellitus E11.9 Diabetes mellitus complication status: without complication Diabetes mellitus fdc insulin use: without fdc use CAD (coronary artery disease) I25.10 Associated angina: without angina Coronary Disease-Associated Artery/Lesion type: [place] artery [place] vs. transplanted heart: [place] heart Dyslipidemia E78.5 Irritable bowel syndrome with diarrhea K58.0 Elevated liver enzymes R74.8 LBBB (left bundle branch block) I44.7 Diverticulosis K57.90 (1) Sleep apnea Sleep apnea type: obstructive Qualified Code(s): G47.33 - Obstructive sleep apnea (adult) (pediatric) (2) Type 2 diabetes mellitus Diabetes mellitus complication status: without complication Diabetes mellitus fdc insulin use: without technician terminal and repeater use Qualified Code(s): E11.9 - Type 2 diabetes mellitus without complications (3) CAD (coronary artery disease) Associated angina: without angina Coronary Disease-Associated Artery/Lesion type: [place] artery [place] vs. transplanted heart: [place] heart Qualified Code(s): I25.10 - Atherosclerotic heart disease of [place] coronary artery without angina pectoris (4) Aspiration into airway Encounter type: sequela Qualified Code(s): T17.908S - Unspecified foreign body in respiratory tract, part unspecified causing other injury, sequela (5) Aspiration pneumonia Aspiration pneumonia type: unspecified Laterality: bilateral Lung location: lower lobe of lung Qualified Code(s): J69.0 - Pneumonitis due to inhalation of food and vomit (6) COPD (chronic obstructive pulmonary disease) COPD type: unspecified COPD Qualified Code(s): J44.9 - Chronic obstructive pulmonary disease, unspecified
--- NOTE | 2020-12-16 14:15 | Fluoroscopy Report ---
FL video swallow CLINICAL HISTORY: 89 years-old Female with r/o sielnt aspiration. Dysphagia with possible aspiration TECHNIQUE: Video fluoroscopic evaluation of swallowing was performed in the AP and lateral projection s by the speech pathology staff. The patient is fed nectar-thick and thin liquid barium, a barium coa sakina wafer, and barium pudding. FLUOROSCOPY TIME: 2.2 minutes. COMPARISON STUDY: Chest radiograph 12/13/2020 FINDINGS: There is normal hyoid excursion and epiglottic deflection. No significant penetration or as piration identified. There is suggestion of a small Zenker's diverticulum. Mild esophageal dysmotilit y.. IMPRESSION: 1. No aspiration identified. 2. Please see the speech pathologist report for detailed findings and recommendations. 3. Small Zenker's diverticulum. ACT 112: Negative or not required by law. Electronically signed by: Jose Soriano M.D. 12/16/2020 2:13 PM
[2020-12-16] MEDS: AZITHROMYCIN 250 MG in DEXTROSE 5% 250 ML IV SCH (15:07)
[2020-12-16] MEDS: ENOXAPARIN INJ 30 MG/0.3 ML SYR SQ SCH (18:11)
[2020-12-16] MEDS: ACETAMINOPHEN 325 MG TAB PO PRN (20:45)
[2020-12-17] MEDS: PIPERACILLIN/TAZOBACTAM 3.375 GM in DEXTROSE 5% 100 ML IV SCH ×2 (01:46→09:26)
[2020-12-17 05:22] LABS: Hepatitis A Antibody IgM NON-REACTIVE (NON-REACTIVE); Hepatitis B Core Antibody IgM NON-REACTIVE (NON-REACTIVE)
[2020-12-17 06:46] LABS: Creatinine Clr Calc Pharmacy 26.8 ml/min; Est GFR (African American) 46.3; Est GFR (Non-African American) 39.9
[2020-12-17] MEDS: ASPIRIN 81 MG ECTAB PO SCH (09:17)
[2020-12-17] MEDS: METOPROLOL TARTRATE 25 MG TAB PO SCH (09:17)
[2020-12-17] MEDS: LOSARTAN POTASSIUM 50 MG TAB PO SCH (09:18)
[2020-12-17] MEDS: UMECLIDINIUM/VILANTEROL 62.5/25MCG 7 PUFFS/INHALER INH SCH (09:18)
[2020-12-17] MEDS: FLUTICASONE FUROATE 100MCG 14 PUFFS/INHALER INH SCH (09:18)
[2020-12-17] MEDS: VENLAFAXINE HCL XR 75 MG CAPXR PO SCH (09:18)
[2020-12-17] MEDS: FLUTICASONE PROPIONATE NA SPR 16 GM BTL SCH (09:19)
[2020-12-17] MEDS: FAMOTIDINE 20 MG in SYRINGE 3 ML IV SCH (09:26)
[2020-12-17] MEDS: INSULIN ASPART 100 UNITS/ML 3 ML PEN SC SCH ×3 (09:26→17:51)
[2020-12-17] MEDS ORDERED: OPTIRAY 320 100ml IV ONE (12:12)
--- NOTE | 2020-12-17 12:28 | CT Scan Report ---
CT OF THE CHEST WITH IV CONTRAST CLINICAL HISTORY: Ongoing cough, pneumonia, tracheomalacia. COMPARISON STUDY: Chest CT March 03, 2017. Chest radiograph December 13, 2020. TECHNIQUE: Following IV administration of 94 mL of Optiray-320, helical axial images of the chest we re obtained. Sagittal and coronal reconstructions were viewed as well as maximal intensity projectio ns on an independent 3-D workstation. Automated exposure control was utilized for the study. A dose lowering technique was utilized adhering to the principles of ALARA. CT DOSE: 290.68 mGy.cm FINDINGS: No enlarged axillary, mediastinal or hilar lymph nodes are present. Calcified mediastinal and bilateral hilar lymph nodes are noted. These indicate a previous granulomas process. There is mil d cardiomegaly. Extensive coronary artery calcification is present. There is no thoracic aortic disse ction. No central pulmonary embolus is present. There is no pneumothorax or pleural effusion. Note is made of secretions within the right middle lobe and lower lobe bronchi. Subpleural right middle lobe and bilateral lower lobe opacity with volume loss represents atelectasis. No consolidation is identi fied. There are no suspicious pulmonary nodules. No cavitation is present. No acute fracture or suspi cious lesion is identified within the bony thorax. Upper abdomen is unremarkable. IMPRESSION: 1. Subpleural right middle lobe and bilateral lower lobe opacities with volume loss consistent with a telectasis or scarring. No consolidation to suggest pneumonia. 2. Moderate secretions within the right lower lobe and right middle lobe bronchi. 3. Mild cardiomegaly. Extensive coronary artery calcification. ACT 112: Negative or not required by law. Electronically signed by: Twin Carlton M.D. 12/17/2020 12:26 PM
[2020-12-17] MEDS: AZITHROMYCIN 250 MG in DEXTROSE 5% 250 ML IV SCH ×2 (13:57→14:24)
--- NOTE | 2020-12-21 08:36 | Discharge Summary ---
Date of Service December 17, 2020 Admission HPI Per Admitting Provider 89 YOF resident of [facility]; with past medical history of tracheomalacia, aspiration, cough, COPD, DEEPALI with CPAP, IBS, HLD, HTN, CAD with BMS to RCA (2007) , Diverticulosis, Gastritis. Patient has been following closely with her optics engineer for dyspnea and concern of aspiration. About 2 weeks ago the patient had a likely aspiration after taking one of her pills, where she had coughing afterwards and some dyspnea. For her aspiration event she did follow up in the ER with nebulizer and pulmonary consult. She was placed on Augmentin liquid last week with no improvement This has not really gotten better and was noted to be hypoxic today and sent from [facility]. On arrival the the EMD she was 88% a chest x-ray was performed and she was started on Cefepime. Hospitalist team was notified for admission. On my evaluation the patient is very pleasant elderly female, still requiring oxygen at 2L to keep SPO2 in low to mid 90's, productive deep cough. We will admit her place her on antibiotics, speech evaluation, NPO for tonight and follow. Will keep NPO until swallow screen evaluation and/or barium swallow evaluation Principal Diagnosis Aspiration pneumonia Discharge Exam Constitutional WD/WN, vitals as above Neck trachea midline, no thyromegaly Respiratory normal respiratory effort, lungs clear to auscultation Auscultation: no wheezes Cardiovascular RRR, no murmur, no edema Gastrointestinal (Abdomen) normal bowel sounds, soft, nontender, no hepatosplenomegaly Musculoskeletal no cyanosis or clubbing, extremities motor strength 5/5 Skin no rashes, warm and dry Neurologic patellar DTR's 2+ bilat, sensation intact and PERRL, EOMI, accommodation nl, no face palsy, no dysarthria Psychiatric A+Ox3, euthymic affect Lymphatic no cervical or axillary lymphadenopathy Discharge Data Allergies Allergy/AdvReac Type Severity Reaction Status Date / Time propoxyphene Allergy Unknown Unknown Verified 12/13/20 13:28 Consultations 12/13/20 13:53 ED Decision to Admit Stat Ordered Studies 12/16/20 [place] video swallow Routine 12/17/20 10:56 CT chest diagnostic w con Urgent Hospital Course (1) Aspiration into airway: Patient with what seems to be like an aspiration event with likely chronic aspiration and choking with big pills she reports. Hx tracheomalacia and recent prednisone for COPD/pna * Speech eval -- ordered diet, easy to chew, video swallow on Saturday 12/16 did not show any aspiration of thin liquids very specific discharge instructions provided for aspiration precautions patient will have a difficult time clearing secretions due to tracheomalacia * Completed 4 days of Zosyn/Azithromycin IV, WBC normal, no fever, breathing comfortably on room air CT chest done on 12/17 at the request of ISABELLA Jackson, pulmonology Impression: 1. Subpleural right middle lobe and bilateral lower lobe opacities with volume loss consistent with atelectasis or scarring. No consolidation to suggest pneumonia. 2. Moderate secretions within the right lower lobe and right middle lobe bronchi. will send on a few more days of Augmentin strict aspiration precautions should use incentive spirometry, stay upright, promote measures that can prevent/treat atelectasis and keep more lung open (2) Aspiration pneumonia: * Patient with hypoxia, productive cough, WBC was 12k -- WBC down to normal now, breathing room air for three days * continue Zosyn and Azithromycin, day 4, change back to a few more days of Augmentin * Titrate O2 as tolerated -- down to room air, no distress * Speech consulted as above, video swallow today did NOT show aspiration of thin liquid * Continue incentive spirometry, flutter valve. * CT chest on 12/17 did NOT show any consolidation to suggest pneumonia, only showed atelectasis (3) COPD (chronic obstructive pulmonary disease): * COPD with asthma. Follows with Benjie Shetty * - appears to be tolerating her current inhaler regime- as normally her breathlessness is improved and activity has not been effected prior to her aspiration event. * - She was placed on prednisone last week for her cough and breathlessness, stop Prednisone, no wheezing or distress * - Continue inhalers -- added atovent neb x 1 today and utilizing prn for wheezing/sob (4) Sleep apnea: * DEEPALI autopap with mean ~10. 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 Follows with Dr. Lebron * From most recent note: * "Cardiac catheterization 2007 with mild atherosclerotic disease of LAD, small caliber mid and distal LAD, severe proximal stenosis of left circumflex marginal, severe distal RCA stenosis, and 50% right posterior or lateral stenosis. 3.5 x 8 mm bare-metal stent distal RCA. 2 bare-metal stents left circumflex marginal. 2.75 x 12 mm and 2.75 x 8 mm bare metal stents. 30% ostial left circumflex, 20% mid left circumflex, 30-40% proximal RCA stenoses also noted. LV ejection fraction normal. Normal left ventricular wall motion." * To have follow up with Dr. Lebron routine scheduled next week * Continued ASA 81mg daily and metoprolol 12.5mg BID * Holding losartan, atorvastatin (lipid panel with elevated triglycerides 287 and 194 on prior draw -- may need additional agent at d/c) --> resuming losartan today as kidney function remains stable and BP elevated 169/82 * --> consider switching to alternative agent if losartan causes increased cough although suspect since ARB less likely than ANNE * NO chest pain reported * ECHO completed but not read yet, -- consult cardio if needed. * --> Will need f/u appt with Dr. 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 vs d/c omega 3 (8) Irritable bowel syndrome with diarrhea: * Patient was recently trialed on Viberzi for her debilitating IBS diarrhea predominant * LFTs were starting to increase after initiation- placed on hold by PCP * Continue to hold --> LFTs improving * Will add cdiff given history and monitor while on abx - C diff negative * also hold statin (9) Elevated liver enzymes: * Continue to monitor * consider imaging of liver if not improving (10) LBBB (left bundle branch block): new LBBB as per ECG ECHO normal BNP normal has close f/u scheduled with Cardiology, no ischemic symptoms (11) Diverticulosis: * No acute needs * Miralax PRN Reflux * on omeprazole LUGGAGE REPAIRER * placing on Pepcid IV daily while here Depression * continue Effexor Dispo: plan to return to [facility] in rehab/skilled wing until she can go back to independent living Total Time Total Time Spent Total Time Spent (In Minutes): 34 minutes Total Time Includes: Examination of the Patient, Discharge Planning, Medication Reconciliation and Communication With Other Providers Discharge Plan Discharge Items Patient Disposition: Transfer Assisted Fac Reason For Visit: ASPIRATION Discharge Diagnosis: Aspiration pneumonia Condition on Discharge: Good Goals: follow strict aspiration precautions complete just a few more days of antibiotics Activity: Resume your previous activity Weightbearing: Full weightbearing Non-emergency contact: Primary Care Provider Call non-emergency contact if: you have any medication questions and your symptoms worsen Follow-up/Referrals: Jayme Price [Primary Care Provider] - (5-7 days) Diet: Carb Consistent or DM2 and Heart Healthy Addtl Attending Provider Instructions: Medications: - AUGMENTIN: continue for three more days then stop - TOPROL: dose reduced to 25mg in the morning for slow heart rate Aspiration pneumonia: likely had aspiration event, chronic aspiration events this aggravates lungs, leads to pneumonia CT chest today shows no further pneumonia, but you do have some areas of atelectasis recommend you finish three more days of Augmentin you should use incentive spirometer several times a day, important to take deep breaths regularly to open up areas of lung follow up with Benjie MASON with pulmonology follow the aspiration precautions below of note, you have a video swallow study in which you did very well, no aspiration was seen but you remain at high risk of aspiration SPEECH THERAPY DISCHARGE INSTRUCTIONS Easy to chew "Slippery" diet (avoid foods that are thick and pasty, consume foods that are thin and slippery in nature, add extra condiments, gravies, butters when appropriate) Aspiration precautions: straws are okay, take medications one at a time or in a carrier to avoid possible choking Take small bites, sips while eating, swallow food completely before taking another bite, and swallow food before laughing or talking Alternate solids/liquids, fully alert and upright, give meds in carrier, upright for meals for +30 minutes, good oral hygiene 2-3 times a day to limit oral bacteria Pending Studies at Discharge: No Stand-Alone Forms: My Adynxx, Smoking Cessation Skilled Items Patient informed of condition?: Yes DNR: No Discharge Level of Care: Other Communicable Disease: No Discharge Prognosis: Stable Lines: None Urinary Catheter: No Medications and DC Order Prescriptions: New metoprolol succinate [Toprol XL] 25 mg tablet extended release 24 hr 25 mg PO DAILY Qty: 30 RF: 0 Continued docusate sodium [Colace] 100 mg capsule 100 mg PO BID Qty: 180 RF: 3 polyethylene glycol 3350 [Miralax] 17 gram/dose powder 17 gm PO DAILY PRN (Reason: Constipation) RF: 0 Trelegy Ellipta 100-62.5-25 mcg blister with device 1 inh INH QAM Qty: 60 RF: 5 losartan 100 mg tablet 100 mg PO QAM Qty: 90 RF: 0 fluticasone propionate 50 mcg/actuation spray,suspension 2 sprays intranasal BID Qty: 1 RF: 0 cetirizine 10 mg tablet 10 mg PO QPM RF: 0 albuterol sulfate 90 mcg/actuation HFA aerosol inhaler 2 puffs inhalation Q4H PRN (Reason: Shortness Of Breath Or Wheezing) RF: 0 venlafaxine [Effexor XR] 75 mg capsule,extended release 24hr 75 mg PO DAILY RF: 0 cholecalciferol (vitamin D3) 50 mcg (2,000 unit) capsule 50 mcg PO DAILY RF: 0 guaifenesin 600 mg tablet extended release 12hr 600 mg PO BID PRN (Reason: Congestion) RF: 0 azithromycin 250 mg tablet See Rx Instructions PO .COMPLEX Qty: 12 RF: 2 omega-3 fatty acids [Fish Oil Concentrate] 1,000 mg capsule 1,000 mg PO DAILY RF: 0 omeprazole 20 mg capsule,delayed release(DR/EC) 20 mg PO QAM RF: 0 oxymetazoline [Afrin (oxymetazoline)] 0.05 % spray,non-aerosol 2 sprays INTNAS Q12H PRN (Reason: Allergy Symptoms) RF: 0 ketotifen fumarate [Alaway] 0.025 % (0.035 %) drops 1 drops OP BID PRN (Reason: Allergy Symptoms) RF: 0 clobetasol 0.025 % cream 1 appln TOP DAILY PRN (Reason: Skin Irritation) RF: 0 diclofenac sodium 1 % gel 2 gm TOP QID PRN (Reason: Pain) RF: 0 ibuprofen 200 mg capsule 200 mg PO Q6H PRN (Reason: Pain) RF: 0 acetaminophen [Tylenol] 325 mg capsule 325 mg PO QID PRN (Reason: Pain) RF: 0 Jardiance 10 mg tablet 10 mg PO QAM RF: 0 lorazepam 0.5 mg tablet 0.5 mg PO DAILY PRN (Reason: Anxiety) RF: 0 dextromethorphan polistirex [Delsym 12 hour] 30 mg/5 mL suspension,extended rel 12 hr 10 ml PO Q12H RF: 0 codeine-guaifenesin 10-100 mg/5 mL liquid 5 ml PO Q6H PRN (Reason: cough) Qty: 237 RF: 0 amoxicillin-pot clavulanate [Augmentin] 250-62.5 mg/5 mL suspension for reconstitution 10 ml PO Q8H 10 Days Qty: 300 RF: 0 prednisone 10 mg tablet See Rx Instructions PO DAILY Qty: 36 RF: 0 Systane Balance 0.6 % drops 1 drp OP DIRECTED PRN (Reason: Dry Eye(S)) RF: 0 atorvastatin 10 mg tablet 10 mg PO DAILY RF: 0 aspirin [Aspirin Low Dose] 81 mg Tablet,Delayed Release (Dr/Ec) 81 mg PO QAM RF: 0 azelastine 137 mcg (0.1 %) aerosol,spray 2 spray INTRANASAL BID PRN (Reason: Allergy Symptoms) RF: 0 ipratropium-albuterol 0.5 mg-3 mg(2.5 mg base)/3 mL solution for nebulization 3 ml INH Q3H PRN (Reason: Shortness Of Breath Or Wheezing) RF: 0 nitroglycerin 0.4 mg tablet, sublingual 0.4 mg SL DIRECTED PRN (Reason: Chest Pain) RF: 0 Discontinued metoprolol succinate 50 mg tablet extended release 24 hr 50 mg PO BID RF: 0 Discharge Orders: Discharge Order (Routine); Ordered 12/17/20 Ordered By: Mehran Knowles/Other Patient Handouts: High Blood Sugar (Hyperglycemia), Hypoglycemia (Low Blood Sugar), Managing Type 2 Diabetes Admission Data Admit Date/Time: 12/13/20 15:17 Attending Provider: Mehran Lee Admit Provider: Jesus Thomson Primary Care Provider: Jayme Price Other Interventions: Discharge Summary Assessment (RN) Last Done: 12/17/20 16:47 Coding Level of Care Code D/C Day Management >30 mins Diagnoses Aspiration into airway T17.908S Encounter type: sequela Aspiration pneumonia J69.0 Aspiration pneumonia type: unspecified Laterality: bilateral Lung location: lower lobe of lung COPD (chronic obstructive pulmonary disease) J44.9 COPD type: unspecified COPD Sleep apnea G47.33 Sleep apnea type: obstructive Type 2 diabetes mellitus E11.9 Diabetes mellitus shelter insulin use: without ocean transportation intermediary use Diabetes mellitus complication status: without complication CAD (coronary artery disease) I25.10 Coronary Disease-Associated Artery/Lesion type: [place] artery [place] vs. transplanted heart: [place] heart Associated angina: without angina Dyslipidemia E78.5 Irritable bowel syndrome with diarrhea K58.0 Elevated liver enzymes R74.8 LBBB (left bundle branch block) I44.7 Diverticulosis K57.90
== END 2020-12-17 18:21 | DRG 179 ==
LOC: ED 11:25 → 3E 15:17 → SUATTDRO 15:17 → 3E 15:58
DX: R09.02 Hypoxemia; T17.908S Unspecified foreign body in respiratory tract, part unspecified causing other injury, sequela; K58.0 Irritable bowel syndrome with diarrhea; E78.5 Hyperlipidemia, unspecified; Z79.84 Long term (current) use of oral hypoglycemic drugs; Z20.822 Contact with and (suspected) exposure to COVID-19; J39.8 Other specified diseases of upper respiratory tract; R74.8 Abnormal levels of other serum enzymes; K57.90 Diverticulosis of intestine, part unspecified, without perforation or abscess without bleeding; G47.33 Obstructive sleep apnea (adult) (pediatric); J44.9 Chronic obstructive pulmonary disease, unspecified; Z88.5 Allergy status to narcotic agent; Z79.899 Other long term (current) drug therapy; J69.0 Pneumonitis due to inhalation of food and vomit; Z95.5 Presence of coronary angioplasty implant and graft; I44.7 Left bundle-branch block, unspecified; E11.9 Type 2 diabetes mellitus without complications; I25.10 Atherosclerotic heart disease of native coronary artery without angina pectoris; I10 Essential (primary) hypertension; Z79.51 Long term (current) use of inhaled steroids; X58.XXXS Exposure to other specified factors, sequela; F32.9 Major depressive disorder, single episode, unspecified; K21.9 Gastro-esophageal reflux disease without esophagitis